=== PATIENT | male | born 1975 | race Caucasian/White ===

== ENCOUNTER 2022-07-01 17:34 | Inpatient (IN) ==
[2022-07-01] MEDS ORDERED: OPTIRAY 320 500ml IV ONE (17:55)
[2022-07-01] MEDS ORDERED: STAT IV STA (17:57)
[2022-07-01] MEDS ORDERED: SODIUM CHLORIDE 0.9% 10ML FLUSH IV STA (17:57)
[2022-07-01] MEDS ORDERED: No Aspirin within 24hrs of THROMBOLYTIC-Stroke PO SCH (18:00)
[2022-07-01] MEDS ORDERED: TENECTEPLASE 22 MG in SYRINGE 0 ML IV ONE (18:08)
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
[2022-07-01] MEDS ORDERED: LABETALOL HCL IV 5 MG/ML 20ML IV ONE (18:10)
[2022-07-01 18:11] LABS: Basophils # (auto) 0.08 K/uL (0-0.2); Basophils % (auto) 0.5 %; Eosinophils # (auto) 0.14 K/uL (0-0.50); Eosinophils % (auto) 0.9 %; Hematocrit (blood only) 49.1 % (42.0-52.0); Hemoglobin 17.2 g/dl (14.0-18.0); Immature Granulocytes # (auto) 0.06 K/uL (0.01-0.20); Immature Granulocytes % (auto) 0.4 %; Lymphocytes # (auto) 1.88 K/uL (1.2-3.4); Lymphocytes % (auto) 11.9 %; Mean Corpuscular Hemoglobin 34.5 pg (25.0-34.0); Mean Corpuscular Volume 98.6 fL (80.0-100.0); Monocytes % (auto) 5.1 %; Neutrophils # (auto) 12.82 K/uL (1.40-6.50); Neutrophils % (auto) 81.2 %; Platelet Count 273 K/uL (130-400); RDW Coefficient of Variation 14.1 % (11.5-14.5); RDW Standard Deviation 51.2 fL (36.4-46.3); Red Blood Count 4.98 M/uL (4.70-6.10); White Blood Count 15.78 K/ul (4.8-10.8)
--- NOTE | 2022-07-01 18:24 | CT Scan Report ---
CT angio neck with con, CT angio head w con, CT head/brain wo con CLINICAL HISTORY: neuro deficit, acute stroke suspected TECHNIQUE: Contiguous axial CT images of the head were acquired from the base of the skull to the corrie jeffery without intravenous contrast administration. CT angiography of the head and neck was performed f ollowing intravenous administration of iodinated contrast. Coronal and sagittal MIPS were obtained fr om the axial data set and were submitted for review. Automated dose lowering techniques and/or adjus tment according to patient size were utilized for this examination. All measurements were calculated based on NASCET criteria. CT DOSE: 1929.07 mGy.cm Comparison: None available at the time of this dictation. FINDINGS: CT head: There is no acute intracranial hemorrhage or evidence of acute territorial infarction. No sh ift of the midline structures, mass effect, or extra-axial abnormalities are shown. Bilateral paranas al sinus disease is seen. Bilateral emphysema is noted. Subcentimeter mediastinal lymph nodes are seen. CTA Neck: A 3 vessel aortic arch is shown. There is interval enlargement of a dissection versus prom inent atherosclerosis in the left subclavian artery origin. This now results in greater than 50% with greater than 70% narrowing of the vessel lumen. This does not appear to extend into the distal subcl tariq artery or vertebral artery. There is mild calcified atherosclerotic plaque at the bifurcation o f the bilateral common carotid arteries without hemodynamically significant flow stenosis. There is n o dissection present. The vertebral arteries are codominant. CTA Head: The anterior and posterior cerebral circulations are patent. No hemodynamically significan t stenosis, aneurysm, dissection, or arteriovenous malformation is shown. IMPRESSION: 1. No acute intracranial hemorrhage, evidence of acute territorial infarction, or other acute intrac ranial disease process. 2. Interval increased prominence of a small dissection versus less likely focal noncalcified plaque at the origin of the left subclavian artery without evidence of hemodynamically significant stenosis. No evidence of extension to the distal subclavian or vertebral arteries. 3. No occlusion, hemodynamically significant stenosis, aneurysm, dissection, or arteriovenous malfor mation in the major intracranial arteries. Assessment of stenosis of the internal carotid arteries is based on NASCET criteria. ACT 112: Negative or not required by law. Electronically signed by: Steve Camejo M.D. 07/01/2022 6:22 PM
[2022-07-01 18:25] LABS: Albumin Globulin Ratio 1.3 (0.9-2); Albumin Level 4.1 gm/dl (3.4-5.0); BUN Creatinine Ratio 13.5 (10-20); Bilirubin,Total 1.2 mg/dl (0.2-1.0); Calcium 9.2 mg/dl (8.5-10.1); Creatinine Clr Calc Pharmacy 73.2 ml/min; Est GFR (African American) 74.3 ml/min; Est GFR (Non-African American) 64.1 ml/min; Globulin 3.1 gm/dl (2.5-4.0); Magnesium 2.1 mg/dl (1.7-2.4); Potassium 3.7 mmol/L (3.5-5.1); Total Protein 7.2 gm/dl (6.0-8.3)
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
[2022-07-01 18:36] LABS: Troponin I High Sensitivity 56.7 pg/ml (0-20)
[2022-07-01 18:49] LABS: INR 1.3 (0.9-1.1); Partial Thromboplastin Time 27.7 Seconds (21.0-31.0); Prothrombin Time 13.7 Seconds (9.0-12.0)
--- NOTE | 2022-07-01 18:51 | XRay Report ---
XR chest 1V portable CLINICAL HISTORY: neuro deficit, acute stroke suspected TECHNIQUE: Single frontal radiograph of the chest was obtained. Comparison: Comparison is made to chest radiograph 04/05/2021 FINDINGS: No lines and tubes are seen. Cardiomegaly is noted. Right lower lung airspace opacity is seen. There is cephalization of the vasculature noted. No evidence of pleural effusion or pneumothorax. IMPRESSION: 1. Right lower lung airspace opacity may represent atelectasis, pneumonia, and/or aspiration. Peribr onchial thickening is seen compatible with airways disease. 2. Cardiomegaly and mild pulmonary hypertension. ACT 112: Negative or not required by law. Electronically signed by: Steve Camejo M.D. 07/01/2022 6:50 PM
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
[2022-07-01] MEDS ORDERED: THIAMINE HCL 500 MG in SODIUM CHLORIDE 0.9% 50 ML IV STA (20:14)
[2022-07-01] MEDS ORDERED: STAT IV Infusion **Titration per Protocol STA (20:14)
[2022-07-01] MEDS ORDERED: LABETALOL HCL IV 5 MG/ML 20ML IV PRN (20:14)
[2022-07-01] MEDS ORDERED: NORMOSOL-R 1,000 ML IV SCH (20:14)
[2022-07-01] MEDS ORDERED: PHARMACIST DISCHARGE MED REC CONSULT PRN (20:14)
[2022-07-01] MEDS ORDERED: cefTRIAXone SODIUM 2,000 MG in DEXTROSE 5% 50 ML IV SCH ×2 (20:30→21:30)
[2022-07-01] MEDS ORDERED: No Aspirin within 24hrs of THROMBOLYTIC-Stroke SCH (20:30)
[2022-07-01] MEDS: FOLIC ACID 1 MG in SYRINGE 9.8 ML IV SCH (21:02)
[2022-07-01] MEDS ORDERED: cefTRIAXone SODIUM 1,000 MG in DEXTROSE 5% AD-VAN 50 ML IV STA (21:11)
[2022-07-01] MEDS ORDERED: ALBUTEROL 0.083% NEBU SOLN 3 ML VIAL NEB PRN (21:33)
--- NOTE | 2022-07-02 00:16 | Magnetic Resonance Report ---
Exam(s): MRI HEAD Without Contrast EXAM: MR Head Without Intravenous Contrast CLINICAL HISTORY: Reason for exam: Suspected CVA post TNKase. TECHNIQUE: Magnetic resonance images of the head/brain without intravenous contrast in multiple planes. COMPARISON: Comparison made to prior noncontrast head CT from the same day. FINDINGS: Brain: Findings concerning for a small acute ischemic injury in the right frontal and parietal lobes with mild cytotoxic edema, without evidence of hemorrhagic transformation. Minimal nonspecific white matter changes. The flow voids at the base of the right are intact. Ventricles: Unremarkable. No ventriculomegaly. Bones/joints: Unremarkable. Sinuses: Unremarkable as visualized. No acute sinusitis. Mastoid air cells: Unremarkable as visualized. No mastoid effusion. Orbits: Unremarkable as visualized. IMPRESSION: Small acute ischemic injuries of the right frontal and parietal lobes with mild cytotoxic edema without evidence of hemorrhagic transformation. Recommend CT angiogram of the head and neck for further evaluation. Electronically signed by: Yelena Pelayo MD 07/02/22 00:15 AM
[2022-07-02] MEDS ORDERED: LORazepam 2 MG/1 ML VIAL IM STA (02:35)
[2022-07-02] MEDS: niCARdipine 25 MG in SODIUM CHLORIDE 0.9% 240 ML IV SCH ×2 (07:13→07:14)
[2022-07-02] MEDS: ICU Protocol for HYPERglycemia SCH ×5 (07:14→20:54)
--- NOTE | 2022-07-02 07:33 | Hospitalist Progress Note ---
Date of Service July 02, 2022 Assessment & Plan (1) Thrombolytic medication administered within last 5 days: (2) Cerebrovascular accident: (3) Dissection of subclavian artery: (4) Tobacco use: (5) Alcohol use: (6) Elevated blood pressure reading: (7) Pneumonia: (8) Elevated troponin: Plan Jason is a 46 M with history of alcohol (6-8 servings vodka daily, last drink 2 PM 07/01) and tobacco use (2 PPD) who take no medications at home who presented for evaluation of left facial droop and left arm/hand weakness that began Sunday afternoon. Patient was found to be experiencing an ischemic CVA and received TNKase and is now being monitor in the intensive care unit. Cerebrovascular Accident (a/w L Arm Weakness and Facial Droop) - Symptom onset: 1530 - S/p TNKase: 1817 (start ASA 24 hours post TNKase) - CT results above - MRI showing ischemic injury of R Frontal and Parietal Lobes - Hx of similar episode in 2020, self resolved, aspirin recommended at this time but not started - 24 hour repeat imaging per protocol - Statin started on admission - Patient actively managed in ICU, post TNKase protocol - BP goals <180/105 - Managed w/ Labetalol - Echo ordered results below - Neurology consulted New Onset, Heart Failure (HFrEF) - Echocardiogram performed 07/02/22 indicating: * Moderate dilation of LV * LV systolic function severely reduced * EF < 15% * Severe global hypokinesis of LV * RV moderately dilated * RV systolic function moderately to severely reduced * Moderate MR and TR * RV systolic pressure elevation to 30-40 mmHg * IVC moderately dilated * Sluggish bubble flow suggesting severely reduced CO - DDx: ischemic heart disease (endorses exertional angina), Viral Myocarditis (recent flu-like illness), hypertensive cardiomyopathy (?), alcohol induced card iomyopathy (active alcohol overuse), amyloidosis (if unexplained FH of cardiomyopathy), not on any provoking drugs, no recent blood transfusion - Consideration for heart cath given patient's history (likely chronic ischemic vs alcoholic cardiomyopathy) - Consulted Cardiology Subclavian Dissection/Stenosis - Neck CTA indicating: * Prominence of a small dissection versus less likely focal noncalcified plaque at the origin of the left subclavian artery without evidence of hemodynamically significant stenosis. - Vascular surgery consulted Pneumonia - RLL pneumonia vs viral URI vs aspiration - Treatment as suspected CAP d/t CXR opacity, elevated WBC, cough, and dyspnea - Empiric Rocephin/Zithromax initiated - Consider pulmonary consultation as outpatient for PFTS for likely COPD - Add HEIDY in house if needed Alcohol use: Patient endorses 6-8 alcoholic beverages (vodka) per day - Last drink / @ 1400 - Thiamine protocol ordered - Folic acid ordered Tobacco use: Currently 2 PPD - Cessation recommended especially in the setting of CVA and family history of cardiac risk - Nicotine patch if needed Hypokalemic periodic paralysis: Potassium 3.7, clinical condition consistent with CVA rather than periodic paralysis BMP daily DVT prophylaxis: Additional chemical ppx contraindicated d/t TNKase, SCDs at this time Dispo: ICU Code Status: Full code Diet: N.p.o. until able to pass dysphagia screen Admission and Anticipated Discharge Date Admission Date: July 01, 2022 Supervising Physician Co-Signing Physician Notes I personally examined the patient and verified all martinez points of history and exam, discussed case, and agree with decision making with Dr Rebollar Somewhat short of breathworse whenever laying flat. Discussed with neurology and ICU. Input greatly appreciated. Vitals noted, in general he is awake and alert mildly dyspneic with conversation, breathing mildly labored bibasilar Rales. Otherwise as above Stroke status post TNK/systolic CHF with EF of 15% acutely decompensated/alcohol abuse/tobacco abusesupportive care, repeat CT, Lasix for the decompensated failure, started to educate on the multimodal need of management. He is well aware and motivated for smoking and alcohol cessation. Cardiology evaluationparticularly as it relates to ischemic risk for his cardiomyopathy, and ongoing management of his severe systolic CHF. Otherwise as above Subjective Jason is a 46 M with history of alcohol (6-8 servings vodka daily, last drink 2 PM 07/01) and tobacco use (2 PPD) who take no medications at home who presented for evaluation of left facial droop and left arm/hand weakness that began Sunday afternoon. Patient was found to be experiencing an ischemic CVA and received TNKase and is now being monitor in the intensive care unit. Patient denies any personal history of MA or heart disease, but notes that his mother had cardiac disease/heart attacks in her 30s as well as DM. 07/02/22: Patient notes this morning that his weakness is much improved. He notes residual weakness in flexion/extension of his left hand digits and occasional speech difficulty.Patient does not ongoing dyspnea, he states that prior to presentation he had 1 week of worsening cough and shortness of breath, he assumed that he had a cold. He notes that 2-3 weeks prior to the onset of his 'cold like symptoms' he developed increasing amounts of dyspnea on exertion, which has continued to progress. 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 He denies any lower extremity edema, claudication, or orthopnea. Jason denies any active fevers, chills, chest pain, abdominal pain, or bowel/bladder concerns. 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: No rashes lesions or erythema CN Exam: II: PERRL III, IV, : EOMI V: normal sensation in V1, V2, and V3 segments bilaterally VII: Slight left-sided facial droop VIII: normal hearing to speech IX, X: normal palatal elevation, no uvular deviation XI: 5/5 head turn and 5/5 shoulder shrug bilaterally XII: Tongue deviates slightly to right of midline Results & Data Results & Data ([facility]) Vital Signs (Past 12 Hours) Vital Signs Temp Pulse Pulse Resp BP BP Pulse Ox 07/02/22 07:15 90 12 97 07/02/22 07:00 93 H 16 90 07/02/22 07:00 141/105 H 07/02/22 06:45 99 H 21 96 07/02/22 06:30 101 H 24 90 07/02/22 06:30 142/109 H 07/02/22 06:15 99 H 31 H 91 07/02/22 06:00 93 H 21 88 L 07/02/22 06:00 137/111 H 07/02/22 05:45 96 H 29 H 89 L 07/02/22 05:30 93 H 23 07/02/22 05:30 126/96 07/02/22 05:15 98 H 32 H 92 07/02/22 05:00 94 H 10 L 92 07/02/22 05:00 139/100 07/02/22 04:45 103 H 26 H 95 07/02/22 04:44 128/91 07/02/22 04:44 95 H 24 95 07/02/22 04:30 102 H 43 H 93 07/02/22 04:30 133/109 H 07/02/22 04:15 94 H 28 H 97 07/02/22 04:00 88 11 L 94 07/02/22 04:00 129/89 07/02/22 03:45 80 0 L 93 07/02/22 03:30 93 H 16 90 07/02/22 03:30 134/100 07/02/22 03:15 92 H 4 L 89 L 07/02/22 03:00 96 H 17 98 07/02/22 03:00 140/104 H 07/02/22 02:45 97 H 18 95 07/02/22 02:30 98 H 31 H 07/02/22 02:30 138/108 H 07/02/22 02:15 91 H 27 H 07/02/22 02:00 86 19 84 L 07/02/22 02:00 124/92 07/02/22 01:45 95 H 17 91 07/02/22 01:30 92 H 25 H 87 L 07/02/22 01:30 135/101 H 07/02/22 01:15 76 11 L 88 L 07/02/22 01:00 86 12 92 07/02/22 01:00 131/96 07/02/22 00:45 95 H 17 91 07/02/22 00:30 92 H 33 H 88 L 07/02/22 00:30 119/85 07/02/22 00:15 92 H 27 H 92 07/02/22 00:12 95 H 23 91 07/02/22 00:12 136/99 07/02/22 00:07 94 H 24 91 07/02/22 00:07 134/107 H 07/02/22 00:03 137/106 H 07/02/22 06:18 36.6 C 93 H 21 141/105 H 96 07/02/22 05:03 36.7 C 93 H 23 126/96 92 07/02/22 05:00 36.7 C 90 15 114/95 92 07/02/22 04:03 88 28 H 129/89 94 07/02/22 03:03 97 H 18 140/104 H 95 07/02/22 02:03 86 19 124/92 92 07/01/22 20:00 07/02/22 01:33 94 H 15 135/101 H 92 07/02/22 01:03 98 H 17 131/96 93 07/02/22 00:00 90 07/02/22 00:33 93 H 21 119/85 94 07/02/22 00:00 36.7 C 91 H 15 136/99 93 07/02/22 00:00 36.7 C 92 H 21 114/95 96 07/01/22 23:03 91 H 22 114/95 95 07/01/22 22:33 95 H 25 H 119/88 97 07/01/22 23:00 92 H 21 96 07/01/22 23:00 114/95 07/01/22 22:45 91 H 28 H 94 07/01/22 22:30 95 H 20 87 L 07/01/22 22:30 119/88 07/01/22 22:15 91 H 29 H 93 07/01/22 22:00 90 14 95 07/01/22 22:00 112/85 07/01/22 21:45 83 10 L 96 07/01/22 21:30 91 H 32 H 94 07/01/22 21:30 114/94 07/01/22 21:15 91 H 7 L 98 07/01/22 21:00 91 H 35 H 96 07/01/22 21:00 116/86 07/01/22 20:58 119/93 07/01/22 20:58 95 H 20 98 07/01/22 20:45 84 14 96 07/01/22 20:30 94 H 14 93 07/01/22 20:30 145/102 H 07/01/22 20:15 93 H 19 96 07/01/22 20:06 148/113 H 07/01/22 20:06 100 H 29 H 95 07/01/22 20:00 99 H 22 90 07/01/22 20:00 144/117 H 07/01/22 19:55 139/114 H 07/01/22 19:55 102 H 41 H 98 07/01/22 19:53 97 H 8 L 07/01/22 22:03 93 H 20 112/85 95 07/01/22 20:00 95 H 07/01/22 21:33 89 31 H 114/94 98 07/01/22 21:03 95 H 23 116/86 98 07/01/22 20:33 115 H 25 H 145/102 H 96 07/01/22 20:03 98 H 30 H 148/113 H 96 07/01/22 19:48 36.7 C 100 H 30 H 144/117 H 97 07/01/22 19:33 99 H 23 134/101 H 96 07/01/22 19:33 O2 Del Method O2 Flow Rate 07/02/22 07:15 07/02/22 07:00 07/02/22 07:00 07/02/22 06:45 07/02/22 06:30 07/02/22 06:30 07/02/22 06:15 07/02/22 06:00 07/02/22 06:00 07/02/22 05:45 07/02/22 05:30 07/02/22 05:30 07/02/22 05:15 07/02/22 05:00 07/02/22 05:00 07/02/22 04:45 07/02/22 04:44 07/02/22 04:44 07/02/22 04:30 07/02/22 04:30 07/02/22 04:15 07/02/22 04:00 07/02/22 04:00 07/02/22 03:45 07/02/22 03:30 07/02/22 03:30 07/02/22 03:15 07/02/22 03:00 07/02/22 03:00 07/02/22 02:45 07/02/22 02:30 07/02/22 02:30 07/02/22 02:15 07/02/22 02:00 07/02/22 02:00 07/02/22 01:45 07/02/22 01:30 07/02/22 01:30 07/02/22 01:15 07/02/22 01:00 07/02/22 01:00 07/02/22 00:45 07/02/22 00:30 07/02/22 00:30 07/02/22 00:15 07/02/22 00:12 07/02/22 00:12 07/02/22 00:07 07/02/22 00:07 07/02/22 00:03 07/02/22 06:18 Nasal Cannula 2 07/02/22 05:03 Room Air 07/02/22 05:00 Room Air 07/02/22 04:03 Room Air 07/02/22 03:03 Room Air 07/02/22 02:03 Room Air 07/01/22 20:00 Room Air, Nasal Cannula 2 07/02/22 01:33 Room Air 07/02/22 01:03 Room Air 07/02/22 00:00 07/02/22 00:33 Nasal Cannula 2 07/02/22 00:00 Room Air 07/02/22 00:00 07/01/22 23:03 Nasal Cannula 2 07/01/22 22:33 Nasal Cannula 2 07/01/22 23:00 07/01/22 23:00 07/01/22 22:45 07/01/22 22:30 07/01/22 22:30 07/01/22 22:15 07/01/22 22:00 07/01/22 22:00 07/01/22 21:45 07/01/22 21:30 07/01/22 21:30 07/01/22 21:15 07/01/22 21:00 07/01/22 21:00 07/01/22 20:58 07/01/22 20:58 07/01/22 20:45 07/01/22 20:30 07/01/22 20:30 07/01/22 20:15 07/01/22 20:06 07/01/22 20:06 07/01/22 20:00 07/01/22 20:00 07/01/22 19:55 07/01/22 19:55 07/01/22 19:53 07/01/22 22:03 Room Air 07/01/22 20:00 07/01/22 21:33 Nasal Cannula 2 07/01/22 21:03 Nasal Cannula 2 07/01/22 20:33 Room Air 07/01/22 20:03 Room Air 07/01/22 19:48 Room Air 07/01/22 19:33 Room Air 07/01/22 19:33 Room Air Diagnostic Findings Chest X-Ray 07/01/22 17:46 IMPRESSION: 1. Right lower lung airspace opacity may represent atelectasis, pneumonia, and/or aspiration. Peribronchial thickening is seen compatible with airways disease. 2. Cardiomegaly and mild pulmonary hypertension. Head CT 07/01/22 17:46 IMPRESSION: 1. No acute intracranial hemorrhage, evidence of acute territorial infarction, or other acute intracranial disease process. 2. Interval increased prominence of a small dissection versus less likely focal noncalcified plaque at the origin of the left subclavian artery without evidence of hemodynamically significant stenosis. No evidence of extension to the distal subclavian or vertebral arteries. 3. No occlusion, hemodynamically significant stenosis, aneurysm, dissection, or arteriovenous malformation in the major intracranial arteries. Head CTA 07/01/22 17:46 IMPRESSION: 1. No acute intracranial hemorrhage, evidence of acute territorial infarction, or other acute intracranial disease process. 2. Interval increased prominence of a small dissection versus less likely focal noncalcified plaque at the origin of the left subclavian artery without evidence of hemodynamically significant stenosis. No evidence of extension to the distal subclavian or vertebral arteries. 3. No occlusion, hemodynamically significant stenosis, aneurysm, dissection, or arteriovenous malformation in the major intracranial arteries. Neck CTA 07/01/22 17:46 IMPRESSION: 1. No acute intracranial hemorrhage, evidence of acute territorial infarction, or other acute intracranial disease process. 2. Interval increased prominence of a small dissection versus less likely focal noncalcified plaque at the origin of the left subclavian artery without evidence of hemodynamically significant stenosis. No evidence of extension to the distal subclavian or vertebral arteries. 3. No occlusion, hemodynamically significant stenosis, aneurysm, dissection, or arteriovenous malformation in the major intracranial arteries. Brain MRI 07/01/22 19:09 IMPRESSION: Small acute ischemic injuries of the right frontal and parietal lobes with mild cytotoxic edema without evidence of hemorrhagic transformation. Recommend CT angiogram of the head and neck for further evaluation. Echocardiogram 07/02/22 Impression: - Moderate dilation of LV - LV systolic function severely reduced - EF < 15% - Severe global hypokinesis of LV - RV moderately dilated - RV systolic function moderately to severely reduced - Moderate MR and TR - RV systolic pressure elevation to 30-40 mmHg - IVC moderately dilated - Sluggish bubble flow suggesting severely reduced CO Resident Activity Tracking Resident Involvement: Resident Care Provided Care Provided: Adult Hospital Medicine (2) Cerebrovascular accident CVA mechanism: unspecified Qualified Code(s): I63.9 - Cerebral infarction, unspecified
[2022-07-02] MEDS: ATORVASTATIN 40 MG TAB PO SCH (08:27)
[2022-07-02] MEDS: FOLIC ACID 1 MG in SYRINGE 9.8 ML IV SCH (08:27)
[2022-07-02] MEDS ORDERED: THIAMINE HCL 100 MG in SYRINGE 9 ML IV SCH (09:00)
[2022-07-02] MEDS ORDERED: cefTRIAXone SODIUM 1,000 MG in DEXTROSE 5% AD-VAN 50 ML IV SCH (09:00)
[2022-07-02] MEDS ORDERED: cefTRIAXone SODIUM 2,000 MG in DEXTROSE 5% 50 ML IV SCH (09:00)
--- NOTE | 2022-07-02 10:01 | Critical Care Progress Note ---
Date of Service July 02, 2022 Assessment & Plan (1) Thrombolytic medication administered within last 5 days: (2) Cerebrovascular accident: (3) Dissection of subclavian artery: (4) Tobacco use: (5) Alcohol use: (6) Elevated blood pressure reading: (7) Pneumonia: (8) Elevated troponin: Plan ICU CONSULT NOTE FORMAT: Reason Critically Ill: 46 YOM arrived to [facility] with reports of LUE weakness, numbness and tingling, left facial droop. Deemed TNKase candidate - received TNKase 18:16. Neurological exams, hemodynamic monitoring and BP control following TNKase administration. Neuro - Stroke like symptoms/Ischemic Stroke, S/p TNKAse administration: Significant improvement CAM ICU: Negative - BP goals <180/105 - Labetalol - Statin initiated - Neurology consultation appreciated - ECHO with bubble study in AM - MRI pending - Stop Bang- 4- patient reports he had previously been screened for CHAD- recommend re-screening - Telemetry overnight eval for arrhythmias- consider extended monitoring if warranted upon discharge - TAPE DUPLICATOR evaluation - ASA 24 hours post TNKase administration tobacco abuse - Nicotene patch if needed ETOH misuse - CIWAA protocol as warranted- last drink was 06/30/22- Thiamine and Folate: Converted to oral administration Cardiac - Subclavian dissection/stenosis, HTN, Cardiomyopathy - Possible subclavian steal- maybe associated with above symptoms however imaging does note that it does not extend into vertebrals or further distally into subclavian- appreciate vascular surgery evaluation/consultation - left arm is warm with good pulses 2+ blood pressure in both arms is also equal - BP control as above- patient endorses that he is always high when he does get it checked Respiratory - Pneumonia, - Patient with right lower lobe opacity, elevated WBC count with NLR 6:1, endorsed fevers and cough- will initiate abx therapy for CAP- Rocephin - Consider pulmonary consultation as outpatient for PFTS for likely COPD - add HEIDY in house if needed - Transition to AZithromax by mouth. - EKG QTc 466, magnesium approrpiate GI - NO acute needs - tolerating diet RENAL/LYTES - No acute needs - ICU electrolyte protocol - NO acute needs ENDO - no acute needs - HGB A1c with next lab draw- follow BG goal <180 HEME - No acute needs ID - Pneumonia LINES/IV ACCESS - PIV Continue use of these lines DVT PROPHYLAXIS - SCDS- chemoprophylaxis contraindicated following TNKase administration DISPO ICU for 24 hours post TNKase administration D/W hospitalist medicine, stable for downgrade at 24 hour s/p TNKase Admission and Anticipated Discharge Date Admission Date: July 01, 2022 Subjective Feels much better than yesterday. He has significant improvement with movement in his left arm, left face feels somewhat numb still, reports his speech is a little off but overall feels significantly improved. Review of Systems Review of Systems: No chest pain no headache Physical Exam Physical Exam: General: Alert. nontoxic. Neuro: Mild left facial droop mild dysarthria Skin: Warm, dry, Head: Atraumatic Ears, nose, mouth and throat: airway patent Cardiovascular: Normal peripheral perfusion Respiratory: no respiratory distress Gastrointestinal: Non distended Musculoskeletal: No deformity, 5 out of 5 strength in bilateral upper extremities noticeable difference in fine motor quality of movements in left hand Results & Data Results & Data ([facility]) Vital Signs (Past 12 Hours) Vital Signs Temp Pulse Pulse Resp BP BP Pulse Ox 07/02/22 09:18 36.7 C 102 H 20 145/110 H 95 07/02/22 08:18 36.6 C 103 H 21 143/102 H 96 07/02/22 07:18 36.7 C 97 H 20 138/111 H 92 07/02/22 07:15 90 12 97 07/02/22 07:00 93 H 16 90 07/02/22 07:00 141/105 H 07/02/22 06:45 99 H 21 96 07/02/22 06:30 101 H 24 90 07/02/22 06:30 142/109 H 07/02/22 06:15 99 H 31 H 91 07/02/22 06:00 93 H 21 88 L 07/02/22 06:00 137/111 H 07/02/22 05:45 96 H 29 H 89 L 07/02/22 05:30 93 H 23 07/02/22 05:30 126/96 07/02/22 05:15 98 H 32 H 92 07/02/22 05:00 94 H 10 L 92 07/02/22 05:00 139/100 07/02/22 04:45 103 H 26 H 95 07/02/22 04:44 128/91 07/02/22 04:44 95 H 24 95 07/02/22 04:30 102 H 43 H 93 07/02/22 04:30 133/109 H 07/02/22 04:15 94 H 28 H 97 07/02/22 04:00 88 11 L 94 07/02/22 04:00 129/89 07/02/22 03:45 80 0 L 93 07/02/22 03:30 93 H 16 90 07/02/22 03:30 134/100 07/02/22 03:15 92 H 4 L 89 L 07/02/22 03:00 96 H 17 98 07/02/22 03:00 140/104 H 07/02/22 02:45 97 H 18 95 07/02/22 02:30 98 H 31 H 07/02/22 02:30 138/108 H 07/02/22 02:15 91 H 27 H 07/02/22 02:00 86 19 84 L 07/02/22 02:00 124/92 07/02/22 01:45 95 H 17 91 07/02/22 01:30 92 H 25 H 87 L 07/02/22 01:30 135/101 H 07/02/22 01:15 76 11 L 88 L 07/02/22 01:00 86 12 92 07/02/22 01:00 131/96 07/02/22 00:45 95 H 17 91 07/02/22 00:30 92 H 33 H 88 L 07/02/22 00:30 119/85 07/02/22 00:15 92 H 27 H 92 07/02/22 00:12 95 H 23 91 07/02/22 00:12 136/99 07/02/22 00:07 94 H 24 91 07/02/22 00:07 134/107 H 07/02/22 00:03 137/106 H 07/02/22 06:18 36.6 C 93 H 21 141/105 H 96 07/02/22 05:03 36.7 C 93 H 23 126/96 92 07/02/22 05:00 36.7 C 90 15 114/95 92 07/02/22 04:03 88 28 H 129/89 94 07/02/22 03:03 97 H 18 140/104 H 95 07/02/22 02:03 86 19 124/92 92 07/02/22 01:33 94 H 15 135/101 H 92 07/02/22 01:03 98 H 17 131/96 93 07/02/22 00:00 90 07/02/22 00:33 93 H 21 119/85 94 07/02/22 00:00 36.7 C 91 H 15 136/99 93 07/02/22 00:00 36.7 C 92 H 21 114/95 96 07/01/22 23:03 91 H 22 114/95 95 07/01/22 22:33 95 H 25 H 119/88 97 07/01/22 23:00 92 H 21 96 07/01/22 23:00 114/95 07/01/22 22:45 91 H 28 H 94 07/01/22 22:30 95 H 20 87 L 07/01/22 22:30 119/88 07/01/22 22:15 91 H 29 H 93 07/01/22 22:03 93 H 20 112/85 95 O2 Del Method O2 Flow Rate 07/02/22 09:18 Nasal Cannula 2 07/02/22 08:18 Nasal Cannula 2 07/02/22 07:18 Nasal Cannula 2 07/02/22 07:15 07/02/22 07:00 07/02/22 07:00 07/02/22 06:45 07/02/22 06:30 07/02/22 06:30 07/02/22 06:15 07/02/22 06:00 07/02/22 06:00 07/02/22 05:45 07/02/22 05:30 07/02/22 05:30 07/02/22 05:15 07/02/22 05:00 07/02/22 05:00 07/02/22 04:45 07/02/22 04:44 07/02/22 04:44 07/02/22 04:30 07/02/22 04:30 07/02/22 04:15 07/02/22 04:00 07/02/22 04:00 07/02/22 03:45 07/02/22 03:30 07/02/22 03:30 07/02/22 03:15 07/02/22 03:00 07/02/22 03:00 07/02/22 02:45 07/02/22 02:30 07/02/22 02:30 07/02/22 02:15 07/02/22 02:00 07/02/22 02:00 07/02/22 01:45 07/02/22 01:30 07/02/22 01:30 07/02/22 01:15 07/02/22 01:00 07/02/22 01:00 07/02/22 00:45 07/02/22 00:30 07/02/22 00:30 07/02/22 00:15 07/02/22 00:12 07/02/22 00:12 07/02/22 00:07 07/02/22 00:07 07/02/22 00:03 07/02/22 06:18 Nasal Cannula 2 07/02/22 05:03 Room Air 07/02/22 05:00 Room Air 07/02/22 04:03 Room Air 07/02/22 03:03 Room Air 07/02/22 02:03 Room Air 07/02/22 01:33 Room Air 07/02/22 01:03 Room Air 07/02/22 00:00 07/02/22 00:33 Nasal Cannula 2 07/02/22 00:00 Room Air 07/02/22 00:00 07/01/22 23:03 Nasal Cannula 2 07/01/22 22:33 Nasal Cannula 2 07/01/22 23:00 07/01/22 23:00 07/01/22 22:45 07/01/22 22:30 07/01/22 22:30 07/01/22 22:15 07/01/22 22:03 Room Air Critical Care Results & Data Vital Signs (Past 12 Hours) Vital Signs Temp Pulse Pulse Resp BP BP Pulse Ox 07/02/22 10:18 36.6 C 93 H 18 141/102 H 93 07/02/22 09:18 36.7 C 102 H 20 145/110 H 95 07/02/22 08:18 36.6 C 103 H 21 143/102 H 96 07/02/22 07:18 36.7 C 97 H 20 138/111 H 92 07/02/22 07:15 90 12 97 07/02/22 07:00 93 H 16 90 07/02/22 07:00 141/105 H 07/02/22 06:45 99 H 21 96 07/02/22 06:30 101 H 24 90 07/02/22 06:30 142/109 H 07/02/22 06:15 99 H 31 H 91 07/02/22 06:00 93 H 21 88 L 07/02/22 06:00 137/111 H 07/02/22 05:45 96 H 29 H 89 L 07/02/22 05:30 93 H 23 07/02/22 05:30 126/96 07/02/22 05:15 98 H 32 H 92 07/02/22 05:00 94 H 10 L 92 07/02/22 05:00 139/100 07/02/22 04:45 103 H 26 H 95 07/02/22 04:44 128/91 07/02/22 04:44 95 H 24 95 07/02/22 04:30 102 H 43 H 93 07/02/22 04:30 133/109 H 07/02/22 04:15 94 H 28 H 97 07/02/22 04:00 88 11 L 94 07/02/22 04:00 129/89 07/02/22 03:45 80 0 L 93 07/02/22 03:30 93 H 16 90 07/02/22 03:30 134/100 07/02/22 03:15 92 H 4 L 89 L 07/02/22 03:00 96 H 17 98 07/02/22 03:00 140/104 H 07/02/22 02:45 97 H 18 95 07/02/22 02:30 98 H 31 H 07/02/22 02:30 138/108 H 07/02/22 02:15 91 H 27 H 07/02/22 02:00 86 19 84 L 07/02/22 02:00 124/92 07/02/22 01:45 95 H 17 91 07/02/22 01:30 92 H 25 H 87 L 07/02/22 01:30 135/101 H 07/02/22 01:15 76 11 L 88 L 07/02/22 01:00 86 12 92 07/02/22 01:00 131/96 07/02/22 00:45 95 H 17 91 07/02/22 00:30 92 H 33 H 88 L 07/02/22 00:30 119/85 07/02/22 00:15 92 H 27 H 92 07/02/22 00:12 95 H 23 91 07/02/22 00:12 136/99 07/02/22 00:07 94 H 24 91 07/02/22 00:07 134/107 H 07/02/22 00:03 137/106 H 07/02/22 06:18 36.6 C 93 H 21 141/105 H 96 07/02/22 05:03 36.7 C 93 H 23 126/96 92 07/02/22 05:00 36.7 C 90 15 114/95 92 07/02/22 04:03 88 28 H 129/89 94 07/02/22 03:03 97 H 18 140/104 H 95 07/02/22 02:03 86 19 124/92 92 07/02/22 01:33 94 H 15 135/101 H 92 07/02/22 01:03 98 H 17 131/96 93 07/02/22 00:00 90 07/02/22 00:33 93 H 21 119/85 94 07/02/22 00:00 36.7 C 91 H 15 136/99 93 07/02/22 00:00 36.7 C 92 H 21 114/95 96 O2 Del Method O2 Flow Rate 07/02/22 10:18 Room Air 07/02/22 09:18 Nasal Cannula 2 07/02/22 08:18 Nasal Cannula 2 07/02/22 07:18 Nasal Cannula 2 07/02/22 07:15 07/02/22 07:00 07/02/22 07:00 07/02/22 06:45 07/02/22 06:30 07/02/22 06:30 07/02/22 06:15 07/02/22 06:00 07/02/22 06:00 07/02/22 05:45 07/02/22 05:30 07/02/22 05:30 07/02/22 05:15 07/02/22 05:00 07/02/22 05:00 07/02/22 04:45 07/02/22 04:44 07/02/22 04:44 07/02/22 04:30 07/02/22 04:30 07/02/22 04:15 07/02/22 04:00 07/02/22 04:00 07/02/22 03:45 07/02/22 03:30 07/02/22 03:30 07/02/22 03:15 07/02/22 03:00 07/02/22 03:00 07/02/22 02:45 07/02/22 02:30 07/02/22 02:30 07/02/22 02:15 07/02/22 02:00 07/02/22 02:00 07/02/22 01:45 07/02/22 01:30 07/02/22 01:30 07/02/22 01:15 07/02/22 01:00 07/02/22 01:00 07/02/22 00:45 07/02/22 00:30 07/02/22 00:30 07/02/22 00:15 07/02/22 00:12 07/02/22 00:12 07/02/22 00:07 07/02/22 00:07 07/02/22 00:03 07/02/22 06:18 Nasal Cannula 2 07/02/22 05:03 Room Air 07/02/22 05:00 Room Air 07/02/22 04:03 Room Air 07/02/22 03:03 Room Air 07/02/22 02:03 Room Air 07/02/22 01:33 Room Air 07/02/22 01:03 Room Air 07/02/22 00:00 07/02/22 00:33 Nasal Cannula 2 07/02/22 00:00 Room Air 07/02/22 00:00 Lab & Micro Results (Past 24 Hours) RBC 4.98 M/uL (4.70-6.10) 07/01/22 WBC 15.78 K/ul (4.8-10.8) H 07/01/22 Hgb 17.2 g/dl (14.0-18.0) 07/01/22 Hct 49.1 % (42.0-52.0) 07/01/22 MCV 98.6 fL (80.0-100.0) 07/01/22 MCH 34.5 pg (25.0-34.0) H 07/01/22 MCHC 35.0 g/dL (32.0-36.0) 07/01/22 RDW Standard Deviation 51.2 fL (36.4-46.3) H 07/01/22 RDW Coefficient of Variation 14.1 % (11.5-14.5) 07/01/22 Plt Count 273 K/uL (130-400) 07/01/22 MPV 11.0 fL (9.4-12.4) 07/01/22 Neutrophils (%) (Auto) 81.2 % 07/01/22 Lymphocytes (%) (Auto) 11.9 % 07/01/22 Monocytes # (Auto) 0.80 K/uL (0.11-0.59) H 07/01/22 Eosinophils # (Auto) 0.14 K/uL (0-0.50) 07/01/22 Immature Granulocyte % (Auto) 0.4 % 07/01/22 Neutrophils # (Auto) 12.82 K/uL (1.40-6.50) H 07/01/22 Lymphocytes # (Auto) 1.88 K/uL (1.2-3.4) 07/01/22 Monocytes # (Auto) 0.80 K/uL (0.11-0.59) H 07/01/22 Eosinophils # (Auto) 0.14 K/uL (0-0.50) 07/01/22 Basophils # (Auto) 0.08 K/uL (0-0.2) 07/01/22 Immature Granulocyte # (Auto) 0.06 K/uL (0.01-0.20) 3 Na 138 mmol/L (136-145) 07/01/22 K 3.7 mmol/L (3.5-5.1) 07/01/22 Cl 102 mmol/L (98-107) 07/01/22 CO2 29 mmol/L (21-32) 07/01/22 Anion Gap 7 (3-11) 07/01/22 BUN 18 mg/dl (6-23) 07/01/22 Creatinine 1.33 mg/dl (0.6-1.4) 07/01/22 Estimated GFR ( Amer) 74.3 ml/min 07/01/22 Estimated GFR (Non-Af Amer) 64.1 ml/min 07/01/22 BUN/Creatinine Ratio 13.5 (10-20) 07/01/22 Glu 112 mg/dl (70-99(Fasting)) H 07/01/22 Ca 9.2 mg/dl (8.5-10.1) 07/01/22 Total Bilirubin 1.2 mg/dl (0.2-1.0) H 07/01/22 AST 39 U/L (13-39) 07/01/22 ALT 43 U/L (7-52) 07/01/22 Alkaline Phosphatase 66 U/L (34-104) 07/01/22 TP 7.2 gm/dl (6.0-8.3) 07/01/22 Albumin 4.1 gm/dl (3.4-5.0) 07/01/22 Globulin 3.1 gm/dl (2.5-4.0) 07/01/22 Albumin/Globulin Ratio 1.3 (0.9-2) 07/01/22 Mg 2.1 mg/dl (1.7-2.4) 07/01/22 17:50 Calcium Level 9.2 mg/dl (8.5-10.1) 07/01/22 17:50 Prothromb Time International Ratio 1.3 (0.9-1.1) H 07/01/22 17 :50 Diagnostic Findings (Past 24 Hours) Chest X-Ray 07/01/22 17:46 XR chest 1V portable CLINICAL HISTORY: neuro deficit, acute stroke suspected TECHNIQUE: Single frontal radiograph of the chest was obtained. Comparison: Comparison is made to chest radiograph 04/05/2021 FINDINGS: No lines and tubes are seen. Cardiomegaly is noted. Right lower lung airspace opacity is seen. There is cephalization of the vasculature noted. No evidence of pleural effusion or pneumothorax. IMPRESSION: 1. Right lower lung airspace opacity may represent atelectasis, pneumonia, and/or aspiration. Peribronchial thickening is seen compatible with airways disease. 2. Cardiomegaly and mild pulmonary hypertension. ACT 112: Negative or not required by law. Electronically signed by: Steve Camejo M.D. 07/01/2022 6:[address] 07/01/22 17:46 CT angio neck with con, CT angio head w con, CT head/brain wo con CLINICAL HISTORY: neuro deficit, acute stroke suspected TECHNIQUE: Contiguous axial CT images of the head were acquired from the base of the skull to the vertex without intravenous contrast administration. CT angiography of the head and neck was performed following intravenous administration of iodinated contrast. Coronal and sagittal MIPS were obtained from the axial data set and were submitted for review. Automated dose lowering techniques and/or adjustment according to patient size were utilized for this examination. All measurements were calculated based on NASCET criteria. CT DOSE: 1929.07 mGy.cm Comparison: None available at the time of this dictation. FINDINGS: CT head: There is no acute intracranial hemorrhage or evidence of acute territorial infarction. No shift of the midline structures, mass effect, or extr a-axial abnormalities are shown. Bilateral paranasal sinus disease is seen. Bilateral emphysema is noted. Subcentimeter mediastinal lymph nodes are seen. CTA Neck: A 3 vessel aortic arch is shown. There is interval enlargement of a dissection versus prominent atherosclerosis in the left subclavian artery origin. This now results in greater than 50% with greater than 70% narrowing of the vessel lumen. This does not appear to extend into the distal subclavian artery or vertebral artery. There is mild calcified atherosclerotic plaque at the bifurcation of the bilateral common carotid arteries without hemodynamically significant flow stenosis. There is no dissection present. The vertebral arteries are codominant. CTA Head: The anterior and posterior cerebral circulations are patent. No hemodynamically significant stenosis, aneurysm, dissection, or arteriovenous malformation is shown. IMPRESSION: 1. No acute intracranial hemorrhage, evidence of acute territorial infarction, or other acute intracranial disease process. 2. Interval increased prominence of a small dissection versus less likely focal noncalcified plaque at the origin of the left subclavian artery without evidence of hemodynamically significant stenosis. No evidence of extension to the distal subclavian or vertebral arteries. 3. No occlusion, hemodynamically significant stenosis, aneurysm, dissection, or arteriovenous malformation in the major intracranial arteries. Assessment of stenosis of the internal carotid arteries is based on NASCET criteria. ACT 112: Negative or not required by law. Electronically signed by: Steve Camejo M.D. 07/01/2022 6:22 PM Head CTA 07/01/22 17:46 CT angio neck with con, CT angio head w con, CT head/brain wo con CLINICAL HISTORY: neuro deficit, acute stroke suspected TECHNIQUE: Contiguous axial CT images of the head were acquired from the base of the skull to the vertex without intravenous contrast administration. CT angiography of the head and neck was performed following intravenous administration of iodinated contrast. Coronal and sagittal MIPS were obtained from the axial data set and were submitted for review. Automated dose lowering techniques and/or adjustment according to patient size were utilized for this examination. All measurements were calculated based on NASCET criteria. CT DOSE: 1929.07 mGy.cm Comparison: None available at the time of this dictation. FINDINGS: CT head: There is no acute intracranial hemorrhage or evidence of acute territorial infarction. No shift of the midline structures, mass effect, or extra-axial abnormalities are shown. Bilateral paranasal sinus disease is seen. Bilateral emphysema is noted. Subcentimeter mediastinal lymph nodes are seen. CTA Neck: A 3 vessel aortic arch is shown. There is interval enlargement of a dissection versus prominent atherosclerosis in the left subclavian artery origin. This now results in greater than 50% with greater than 70% narrowing of the vessel lumen. This does not appear to extend into the distal subclavian artery or vertebral artery. There is mild calcified atherosclerotic plaque at the bifurcation of the bilateral common carotid arteries without hemodynamically significant flow stenosis. There is no dissection present. The vertebral arteri es are codominant. CTA Head: The anterior and posterior cerebral circulations are patent. No hemodynamically significant stenosis, aneurysm, dissection, or arteriovenous ma lformation is shown. IMPRESSION: 1. No acute intracranial hemorrhage, evidence of acute territorial infarction, or other acute intracranial disease process. 2. Interval increased prominence of a small dissection versus less likely focal noncalcified plaque at the origin of the left subclavian artery without evidence of hemodynamically significant stenosis. No evidence of extension to the distal subclavian or vertebral arteries. 3. No occlusion, hemodynamically significant stenosis, aneurysm, dissection, or arteriovenous malformation in the major intracranial arteries. Assessment of stenosis of the internal carotid arteries is based on NASCET criteria. ACT 112: Negative or not required by law. Electronically signed by: Steve Camejo M.D. 07/01/2022 6:22 PM Neck CTA 07/01/22 17:46 CT angio neck with con, CT angio head w con, CT head/brain wo con CLINICAL HISTORY: neuro deficit, acute stroke suspected TECHNIQUE: Contiguous axial CT images of the head were acquired from the base of the skull to the vertex without intravenous contrast administration. CT angiography of the head and neck was performed following intravenous administration of iodinated contrast. Coronal and sagittal MIPS were obtained from the axial data set and were submitted for review. Automated dose lowering techniques and/or adjustment according to patient size were utilized for this examination. All measurements were calculated based on NASCET criteria. CT DOSE: 1929.07 mGy.cm Comparison: None available at the time of this dictation. FINDINGS: CT head: There is no acute intracranial hemorrhage or evidence of acute territorial infarction. No shift of the midline structures, mass effect, or extra-axial abnormalities are shown. Bilateral paranasal sinus disease is seen. Bilateral emphysema is noted. Subcentimeter mediastinal lymph nodes are seen. CTA Neck: A 3 vessel aortic arch is shown. There is interval enlargement of a dissection versus prominent atherosclerosis in the left subclavian artery origin. This now results in greater than 50% with greater than 70% narrowing of the vessel lumen. This does not appear to extend into the distal subclavian artery or vertebral artery. There is mild calcified atherosclerotic plaque at the bifurcation of the bilateral common carotid arteries without hemodynamically significant flow stenosis. There is no dissection present. The vertebral arteries are codominant. CTA Head: The anterior and posterior cerebral circulations are patent. No hemodynamically significant stenosis, aneurysm, dissection, or arteriovenous malformation is shown. IMPRESSION: 1. No acute intracranial hemorrhage, evidence of acute territorial infarction, or other acute intracranial disease process. 2. Interval increased prominence of a small dissection versus less likely focal noncalcified plaque at the origin of the left subclavian artery without evidence of hemodynamically significant stenosis. No evidence of extension to the distal subclavian or vertebral arteries. 3. No occlusion, hemodynamically significant stenosis, aneurysm, dissection, or arteriovenous malformation in the major intracranial arteries. Assessment of stenosis of the internal carotid arteries is based on NASCET criteria. ACT 112: Negative or not required by law. Electronically signed by: Steve Camejo M.D. 07/01/2022 6:22 PM Brain MRI 07/01/22 19:09 Exam(s): MRI HEAD Without Contrast EXAM: MR Head Without Intravenous Contrast CLINICAL HISTORY: Reason for exam: Suspected CVA post TNKase. TECHNIQUE: Magnetic resonance images of the head/brain without intravenous contrast in multiple planes. COMPARISON: Comparison made to prior noncontrast head CT from the same day. FINDINGS: Brain: Findings concerning for a small acute ischemic injury in the right frontal and parietal lobes with mild cytotoxic edema, without evidence of hemorrhagic transformation. Minimal nonspecific white matter changes. The flow voids at the base of the right are intact. Ventricles: Unremarkable. No ventriculomegaly. Bones/joints: Unremarkable. Sinuses: Unremarkable as visualized. No acute sinusitis. Mastoid air cells: Unremarkable as visualized. No mastoid effusion. Orbits: Unremarkable as visualized. IMPRESSION: Small acute ischemic injuries of the right frontal and parietal lobes with mild cytotoxic edema without evidence of hemorrhagic transformation. Recommend CT angiogram of the head and neck for further evaluation. Electronically signed by: Yelena Pelayo MD 07/02/22 00:15 AM I & O Totals 24 Hours 07/01/22 07/02/22 07/03/22 06:59 06:59 06:59 Intake Total 1125 / 1125 70 / 70 Output Total 625 / 625 Balance 500 / 500 70 / 70 Cumulative 07/01/22 17:34 thru 07/02/22 09:01 Intake Total 1195 Output Total 625 Balance 570 RT Ventilator Mngmt (Last Documented) Ventilator Ordered Settings Respiratory Rate 18 07/02/22 10:18 Ventilator - PT Measurements Respiratory Rate 18 Coding Level of Care Code 05379 SUB INP/OBS CARE 3/50MIN Diagnoses Thrombolytic medication administered within last 5 days Z78.9 Cerebrovascular accident I63.9 CVA mechanism: unspecified Dissection of subclavian artery I77.79 Tobacco use Z72.0 Alcohol use Z78.9 Elevated blood pressure reading R03.0 Pneumonia J18.9 Elevated troponin R77.8 (2) Cerebrovascular accident CVA mechanism: unspecified Qualified Code(s): I63.9 - Cerebral infarction, unspecified
--- NOTE | 2022-07-02 10:27 | XCELERA ---
[id number] \\[id number]
[2022-07-02] MEDS ORDERED: AZITHROMYCIN 250 MG TAB PO ONE (12:00)
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
--- NOTE | 2022-07-02 14:36 | Electrocardiogram Report ---
Test Reason : Blood Pressure : / mmHG Vent. Rate : 120 BPM Atrial Rate : 120 BPM P-R Int : 150 ms QRS Dur : 110 ms QT Int : 330 ms P-R-T Axes : 069 196 022 degrees QTc Int : 466 ms Sinus tachycardia Left atrial enlargement Right superior axis deviation Possible Old Inferior infarct (cited on or before 05-APR-2021) Possible Old Anterior infarct (cited on or before 05-APR-2021) Nonspecific T wave abnormality Lateral leads Abnormal ECG When compared with ECG of 05-APR-2021 12:31, No significant change Confirmed by Trent Soares ([id number]) on 07/02/2022 2:36:00 PM Referred By: REFERRED SELF Confirmed By:Trent Soares
[2022-07-02 17:15] LABS: Basophils # (auto) 0.11 K/uL (0-0.2); Basophils % (auto) 1.1 %; Eosinophils # (auto) 0.07 K/uL (0-0.50); Eosinophils % (auto) 0.7 %; Hematocrit (blood only) 47.3 % (42.0-52.0); Hemoglobin 16.5 g/dl (14.0-18.0); Immature Granulocytes # (auto) 0.03 K/uL (0.01-0.20); Immature Granulocytes % (auto) 0.3 %; Lymphocytes # (auto) 2.44 K/uL (1.2-3.4); Lymphocytes % (auto) 23.6 %; Mean Corpuscular Hemoglobin 34.1 pg (25.0-34.0); Mean Corpuscular Hgb Conc 34.9 g/dL (32.0-36.0); Mean Corpuscular Volume 97.7 fL (80.0-100.0); Mean Platelet Volume 11.6 fL (9.4-12.4); Monocytes # (auto) 0.72 K/uL (0.11-0.59); Neutrophils # (auto) 6.98 K/uL (1.40-6.50); Neutrophils % (auto) 67.3 %; Platelet Count 236 K/uL (130-400); RDW Coefficient of Variation 14.1 % (11.5-14.5); RDW Standard Deviation 51.2 fL (36.4-46.3); Red Blood Count 4.84 M/uL (4.70-6.10); White Blood Count 10.35 K/ul (4.8-10.8)
[2022-07-02 17:29] LABS: BUN Creatinine Ratio 11.7 (10-20); Calcium 9.4 mg/dl (8.5-10.1); Chol HDL Ratio 8.3 (0-5); Creatinine Clr Calc Pharmacy 60.9 ml/min; Est GFR (African American) 58.5 ml/min; Est GFR (Non-African American) 50.5 ml/min; Potassium 4.3 mmol/L (3.5-5.1)
--- NOTE | 2022-07-02 18:39 | CT Scan Report ---
CT head/brain wo con CLINICAL HISTORY: 46 years-old Male with repeat post CVA/TNKase. Acute strokelike symptoms TECHNIQUE: Multiple axial CT images of the head were obtained without contrast. A dose lowering tech nique was utilized adhering to the principles of ALARA. CT DOSE: 614.27 mGy.cm COMPARISON: Brain MRI 07/01/2022 FINDINGS: No acute intracranial hemorrhage, midline shift, intracranial mass, hydrocephalus, or abnormal extra- axial collection. Ill-defined right frontal parietal small infarcts redemonstrated with mild cytotoxi c edema. The calvarium is intact. Mild polypoid mucosal thickening of the right maxillary sinus. Mastoid air cells are clear. IMPRESSION: 1. No acute intracranial hemorrhage or midline shift. 2. Small ill-defined right frontal parietal infarcts redemonstrated, better characterized on the [facility] brain MRI. ACT 112: Negative or not required by law. The above report was generated using voice recognition software. It may contain grammatical, syntax o r spelling errors. Electronically signed by: Myron Estrada M.D. 07/02/2022 6:36 PM
[2022-07-02] MEDS ORDERED: FUROSEMIDE INJ 20 MG/2 ML VIAL IV ONE (18:59)
--- NOTE | 2022-07-02 19:30 | Billing Data ---
Date of Service July 02, 2022 Coding Level of Care Code 56113 SUB INP/OBS CARE
[2022-07-02] MEDS: ASPIRIN 81 MG ECTAB PO SCH (20:35)
[2022-07-03 05:08] LABS: Hematocrit (blood only) 45.1 % (42.0-52.0); Hemoglobin 15.9 g/dl (14.0-18.0); Mean Corpuscular Hemoglobin 34.1 pg (25.0-34.0); Mean Corpuscular Hgb Conc 35.3 g/dL (32.0-36.0); Mean Corpuscular Volume 96.8 fL (80.0-100.0); Mean Platelet Volume 11.5 fL (9.4-12.4); Platelet Count 215 K/uL (130-400); RDW Coefficient of Variation 14.1 % (11.5-14.5); RDW Standard Deviation 50.6 fL (36.4-46.3); Red Blood Count 4.66 M/uL (4.70-6.10); White Blood Count 10.51 K/ul (4.8-10.8)
[2022-07-03 05:14] LABS: Albumin Globulin Ratio 1.4 (0.9-2); Albumin Level 3.9 gm/dl (3.4-5.0); BUN Creatinine Ratio 14.2 (10-20); Bilirubin,Total 1.4 mg/dl (0.2-1.0); Calcium 8.9 mg/dl (8.5-10.1); Creatinine Clr Calc Pharmacy 77.7 ml/min; Est GFR (African American) 78.6 ml/min; Est GFR (Non-African American) 67.8 ml/min; Globulin 2.7 gm/dl (2.5-4.0); Potassium 4.2 mmol/L (3.5-5.1); Total Protein 6.6 gm/dl (6.0-8.3)
--- NOTE | 2022-07-03 06:54 | Hospitalist Progress Note ---
Date of Service July 03, 2022 Assessment & Plan (1) Thrombolytic medication administered within last 5 days: (2) Cerebrovascular accident: (3) Dissection of subclavian artery: (4) Tobacco use: (5) Alcohol use: (6) Elevated blood pressure reading: (7) Pneumonia: (8) Elevated troponin: Plan Jason is a 46 M with history of alcohol (6-8 servings vodka daily, last drink 2 PM 07/01) and tobacco use (2 PPD) who take no medications at home who presented for evaluation of left facial droop and left arm/hand weakness that began Sunday afternoon. Patient was found to be experiencing an ischemic CVA and received TNKase and is now being monitor in the intensive care unit. Cerebrovascular Accident (a/w L Arm Weakness and Facial Droop) - Symptom onset: 1530 - S/p TNKase: 1817 (start ASA 24 hours post TNKase) - CT results above - MRI showing ischemic injury of R Frontal and Parietal Lobes - Hx of similar episode in 2020, self resolved, aspirin recommended at this time but not started - 24 hour repeat imaging per protocol - Statin started on admission - Patient actively managed in ICU, post TNKase protocol - BP goals <180/105 - Managed w/ Labetalol - Echo ordered results below - Neurology consulted New Onset, Heart Failure (HFrEF) - Echocardiogram performed 07/02/22 indicating: * Moderate dilation of LV * LV systolic function severely reduced * EF < 15% * Severe global hypokinesis of LV * RV moderately dilated * RV systolic function moderately to severely reduced * Moderate MR and TR * RV systolic pressure elevation to 30-40 mmHg * IVC moderately dilated * Sluggish bubble flow suggesting severely reduced CO - DDx: ischemic heart disease (endorses exertional angina), Viral Myocarditis (recent flu-like illness), hypertensive cardiomyopathy (?), alcohol induced card iomyopathy (active alcohol overuse), amyloidosis (if unexplained FH of cardiomyopathy), not on any provoking drugs, no recent blood transfusion - Consideration for heart cath given patient's history (likely chronic ischemic vs alcoholic cardiomyopathy) - Consulted Cardiology Subclavian Dissection/Stenosis - Neck CTA indicating: * Prominence of a small dissection versus less likely focal noncalcified plaque at the origin of the left subclavian artery without evidence of hemodynamically significant stenosis. - Vascular surgery consulted Pneumonia - RLL pneumonia vs viral URI vs aspiration - Treatment as suspected CAP d/t CXR opacity, elevated WBC, cough, and dyspnea - Empiric Rocephin/Zithromax initiated - Consider pulmonary consultation as outpatient for PFTS for likely COPD - Add HEIDY in house if needed Alcohol use: Patient endorses 6-8 alcoholic beverages (vodka) per day - Last drink / @ 1400 - Thiamine protocol ordered - Folic acid ordered Tobacco use: Currently 2 PPD - Cessation recommended especially in the setting of CVA and family history of cardiac risk - Nicotine patch if needed Hypokalemic periodic paralysis: Potassium 3.7, clinical condition consistent with CVA rather than periodic paralysis BMP daily DVT prophylaxis: Additional chemical ppx contraindicated d/t TNKase, SCDs at this time Dispo: ICU Code Status: Full code Diet: N.p.o. until able to pass dysphagia screen Admission and Anticipated Discharge Date Admission Date: July 01, 2022 Goldie Gomez is a 46 M with history of alcohol (6-8 servings vodka daily, last drink 2 PM 07/01) and tobacco use (2 PPD) who take no medications at home who presented for evaluation of left facial droop and left arm/hand weakness that began Sunday afternoon. Patient was found to be experiencing an ischemic CVA and received TNKase and is now being monitor in the intensive care unit. Patient denies any personal history of ID or heart disease, but notes that his mother had cardiac disease/heart attacks in her 30s as well as DM. 07/03: Review of Systems Review of Systems: As per HPI Results & Data Results & Data ([place]) Vital Signs (Past 12 Hours) Vital Signs Pulse Resp BP Pulse Ox 07/03/22 05:00 91 H 9 L 94 07/03/22 05:00 137/99 07/03/22 04:00 95 H 27 H 92 07/03/22 04:00 132/94 07/03/22 03:00 99 H 25 H 91 07/03/22 03:00 132/101 H 07/03/22 02:00 84 8 L 90 07/03/22 02:00 133/112 H 07/03/22 01:00 91 H 4 L 89 L 07/03/22 01:00 135/102 H 07/03/22 00:00 97 H 7 L 88 L 07/03/22 00:00 138/111 H 07/02/22 23:00 84 7 L 92 07/02/22 23:00 132/102 H 07/02/22 22:00 97 H 15 87 L 07/02/22 21:00 103 H 19 94 07/02/22 21:00 135/110 H 07/02/22 20:40 104 H 16 95 07/02/22 20:40 132/104 H 07/02/22 20:00 105 H 32 H 91 07/02/22 19:00 104 H 41 H 93 Resident Activity Tracking Resident Involvement: Resident Care Provided Care Provided: Adult Hospital Medicine (2) Cerebrovascular accident CVA mechanism: unspecified Qualified Code(s): I63.9 - Cerebral infarction, unspecified
[2022-07-03] MEDS: FOLIC ACID 1 MG TAB PO SCH (08:01)
[2022-07-03] MEDS: ATORVASTATIN 40 MG TAB PO SCH (08:01)
[2022-07-03] MEDS: THIAMINE HCL 100 MG TAB PO SCH (08:01)
[2022-07-03] MEDS: MULTIVITAMIN TAB PO SCH (08:01)
--- NOTE | 2022-07-03 08:23 | Hospitalist Progress Note ---
Medical Student Supervision Note: I was personally present during medical student patient encounter and independently interviewed and examined the patient and verified the martinez history and physical, reviewed labs and image studies, discussed the case with Gali Gonzalez and agree with the findings and care plan. reported feeling short of breath, worse with laying down. has been going on for few month. no chest pain no focal weakness denies any feeling of anxiousness, jitteriness o/e - mild respiratory distress off and on during visit lung - decreased breath sounds at base with mild crackles at bases heart - regular no focal neuro weakness a/p - acute CVA s/p TKA - doing well. start aspirin when able to. statin, BP control. encourage quitting smoking. new onset systolic CMP - EF 15%. high risk of CAD as etiology. for [facility] as outpatient. will need vest on discharge. coreg added. acute systolic chf- likely contributing to dyspnea and orthopnea - lasix 20mgs IV one dose. subclavian artery dissection - vascular surgery consulted. CT chest to r/o possiblity of dissection origin in aortic arch. AUD - AWSS protocol placed to monitor for withdrawal. follow for outpatient management SCD Date of Service July 03, 2022 Assessment & Plan (1) Thrombolytic medication administered within last 5 days: (2) Cerebrovascular accident: (3) Dissection of subclavian artery: (4) Tobacco use: (5) Alcohol use: (6) Elevated blood pressure reading: (7) Pneumonia: (8) Elevated troponin: Plan Jason is a 46 M with history of alcohol (6-8 servings vodka daily, last drink 2 PM 3/4) and tobacco use (2 PPD) who presented for evaluation of left facial droop and left arm/hand weakness that began Sunday afternoon. Patient was found to be experiencing an ischemic CVA and received TNKase and diagnosed with new HFrEF on Echo (EF <15%) Cerebrovascular Accident (a/w L Arm Weakness and Facial Droop) - Symptom onset: 0 - S/p TNKase: 1817 (start ASA 24 hours post TNKase) - CT results above - MRI showing ischemic injury of R Frontal and Parietal Lobes - Hx of similar episode in 2020, self resolved, aspirin recommended at this time but not started - 24 hour repeat imaging per protocol - Statin started on admission - Patient actively managed in ICU, post TNKase protocol - BP goals <180/105 - Managed w/ Labetalol, 3 switched to Carvedilol and beta chiki. - Echo ordered results below - Appreciate Neurology recs; begin aspirin 81 mg, high intensity statin, cessation of smoking and alcohol, thiamine protocol ordered New Onset, Heart Failure (HFrEF) with acute exacerbation - Echocardiogram performed 07/02/22 indicating severe biventricular failure, including: * EF < 15% * Dilation of RV and LV * Moderate MR and TR * RV systolic pressure elevation to 30-40 mmHg * IVC moderately dilated - DDx: ischemic heart disease, alcohol induced cardiomyopathy (active alcohol overuse), Viral Myocarditis (recent flu-like illness), amyloidosis (familial) - Low respiratory rates, crackles heard at lung bases, Chest CTA showing pulmonary congestion; 07/03 BNP of 2646 - Appreciate Cardiology recs; added IV Lasix for pulmonary congestion, Carvedilol 3.125 mg BID per guideline directed medical therapy for systolic HF and BP management, Jardiance 10 mg PO daily - Cardiology recommending cardiac catheterization; patient declines at this time. Patient is open to outside facility catheterization. - Per cardiology, cardiac CTA or cardiac MRI as outpatient recommended - Per cardiology, LifeVest ordered based on EF <15% for bridge to ICD placement once EF > 35% - Further guideline directed medical therapy to include Aspirin 81 mg, BECKA Inhibitor, high intensity statin, spironolactone, and beta chiki initiation Subclavian Dissection/Stenosis - Neck CTA indicating: * Prominence of a small dissection versus less likely focal noncalcified plaque at the origin of the left subclavian artery without evidence of hemodynamically significant stenosis. - Appreciate vascular surgery recs: CTA with partially visualized L subclavian artery dissection, which appears worse than previous imaging over 1 yr ago.Ordered Chest CTA. - Chest CTA revealed "Atheromatous and atherosclerotic plaque of the thoracic aortic arch and left subclavian artery origin results in approximately 40% stenosis of the subclavian artery." Appreciate further recommendations. Elevated Troponin - 3/6 elevated high sensitivity Troponin of 458; likely secondary to cardiomyopathy and not an acute coronary syndrome - Cardiology recommends cardiac cath- patient declined at this time; outside coronary angiography also recommended as alternative - Cardiac CTA or cardiac MRA recommended for outpatient setting - Low-dose aspirin, beta-chiki, high-intensity statin initiated - Trend troponin Pneumonia vs. Pulmonary congestion secondary to HFrEF - Treatment as suspected CAP d/t CXR opacity, elevated WBC, cough, and dyspnea - 07/01 Chest Xray revealed "R lower lung airspace opacity may represent atelectasis, pneumonia, and/or aspiration. Peribronchial thickening compatible with airways disease" - Empiric Rocephin/Zithromax initiated -07/03 Chest CTA revealed "mild mediastinal lymphadenopathy with pretracheal lymph nodes measuring up to 1.3 cm. Mild right hilar lymphadenopathy. Small left with moderate right pleural effusions. Intralobular septal thickening with mild intermixed groundglass densities. Mild pulmonary emphysema. Mild dependent bibasilar atelectasis." -07/03 Chest Xray showed clear lungs and no evidence of pleural effusions. - Given normalization of WBC count, lack of consolidation on Chest CTA and Chest Xray, b/l crackles on physical exam, elevated BNP, more likely HFrEF exacerbation. Will continue abx with initiation of diuretic therapy and monitor symptoms and labs. 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 Patient was found to be experiencing an ischemic CVA and received TNKase and is now being monitored on telemetry. Patient denies any personal history of NV or heart disease, but notes that his mother had cardiac disease/heart attacks in her 30s as well as DM. 07/03: He is feeling okay today but did not sleep well because his breathing gets so shallow. He says he wakes up feeling short of breath and has had this trouble sleeping for the past 10 days- 2 weeks; he also states that he snores overnight. He does not have chest pain, palpitations, syncope, or presyncope. His left arm weakness feels slightly better than yesterday. His left thumb is numb but he does not have numbness elsewhere in his left arm. He continues to have some dysesthesia in his left hand. Review of Systems Gastrointestinal: no nausea, vomiting, dysphagia, diarrhea, hematochezia Physical Exam Constitutional: Gen- WN/WD, non-toxic appearing, lying on his side, dyspneic HEENT- NC/AT, PERRL, oral and pharyngeal mucosa moist Pulm- decreased breath sounds b/l in lower lobes, decreased to percussion b/l in lower lobes, faint crackles heard in lower right lung saunders, no rales, no egophony. equal breath sounds, dyspneic at rest. CV- mildly tachycardic, no m/r/g appreciated. no JVD. clubbing of fingers bilaterally. no LE edema. Abd- non-tender to palpation in all 4 quadrants Neuro- Cranial Nerves: II: PERRL and accommodation. III/IV/: intact. VII: asymmetric smile with drooping of the left side. cannot puff out cheeks as much on L side. VIII: can hear whisper b/l. IX/X: palate elevation normal, tongue deviates to t he right. XI: 5/5 strength of sternocleidomastoid and trapezius muscles. Motor: 5/5 strength R upper extremities, 4/5 strength in L upper extremity, particularly L finger abduction. 5/5 strength in b/l LE. Reflexes: +2/4 bilaterally in biceps, brachioradialis, patellar, Achilles. (+) Babinski Sensation: intact to sharp and dull in b/l UE and LE except for thumb on L side Coordination: somewhat slowed rapidly alternating movements, [id number] normal. (-) pronator drift. Psych- normal affect, a bit tearful. Results & Data Results & Data ([facility]) Vital Signs (Past 12 Hours) Vital Signs Pulse Resp BP Pulse Ox 07/03/22 05:00 91 H 9 L 94 07/03/22 05:00 137/99 07/03/22 04:00 95 H 27 H 92 07/03/22 04:00 132/94 07/03/22 03:00 99 H 25 H 91 07/03/22 03:00 132/101 H 07/03/22 02:00 84 8 L 90 07/03/22 02:00 133/112 H 07/03/22 01:00 91 H 4 L 89 L 07/03/22 01:00 135/102 H 07/03/22 00:00 97 H 7 L 88 L 07/03/22 00:00 138/111 H 07/02/22 23:00 84 7 L 92 07/02/22 23:00 132/102 H 07/02/22 22:00 97 H 15 87 L 07/02/22 21:00 103 H 19 94 07/02/22 21:00 135/110 H 07/02/22 20:40 104 H 16 95 07/02/22 20:40 132/104 H (2) Cerebrovascular accident CVA mechanism: unspecified Qualified Code(s): I63.9 - Cerebral infarction, unspecified
[2022-07-03] MEDS ORDERED: AZITHROMYCIN 250 MG TAB PO SCH (09:00)
[2022-07-03] MEDS ORDERED: cefTRIAXone SODIUM 2,000 MG in DEXTROSE 5% 50 ML IV SCH (09:00)
[2022-07-03 09:03] LABS: Troponin I High Sensitivity 458.1 pg/ml (0-20)
[2022-07-03 10:11] LABS: Estimated Average Glucose 111 mg/dl; Hemoglobin A1C 5.5 % (4.5-5.6)
[2022-07-03] MEDS: ASPIRIN 81 MG ECTAB PO SCH (10:19)
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
[2022-07-03] MEDS ORDERED: OPTIRAY 320 125ml IV ONE (11:40)
[2022-07-03] MEDS: carvediloL 3.125 MG TAB PO SCH ×2 (11:46→21:20)
[2022-07-03] MEDS: FUROSEMIDE INJ 20 MG/2 ML VIAL IV SCH (11:46)
--- NOTE | 2022-07-03 12:25 | CT Scan Report ---
CT angio chest dissec wo/w con CT DOSE: 1185.41 mGycm HISTORY: 46 years-old Male with left subclavan artery dissection. Follow-up study in a patient with possible dissection of the left subclavian artery. TECHNIQUE: Multiple CTA images of the chest were obtained after the intravenous administration of 113 ml Optiray. Coronal and sagittal MIPS were obtained from the axial data set and were submitted for review. All measurements were obtained according to NASCET criteria. A dose lowering technique was u tilized adhering to the principles of ALARA. COMPARISON: CTA neck 07/01/2022, 04/05/2021 FINDINGS: CTA: Moderate cardiomegaly without pericardial effusion. No thoracic aortic aneurysm or dissection. Mild t o moderate atheromatous and atherosclerotic plaque of the thoracic aortic arch with moderate probably atheromatous plaque of the proximal left subclavian artery, progressively worsened from 2020 resulti ng in 40% luminal narrowing. The other remaining great vessels are unremarkable. No dissection identi fied. Unremarkable pulmonary artery. CT CHEST: No thyroid nodule. There is mild mediastinal lymphadenopathy with pretracheal lymph nodes measuring u p to 1.3 cm. Mild right hilar lymphadenopathy also noted. Small left with moderate right pleural effu sions. Intralobular septal thickening with mild intermixed groundglass densities. Mild pulmonary emph ysema. Mild dependent bibasilar atelectasis. Central airways are patent. Contracted gallbladder. Increased density of the central gallbladder is likely secondary to mucosal e nhancement. Cholelithiasis considered less likely. Mild nonspecific bilateral perinephric stranding. Unremarkable soft tissues. No acute fracture. IMPRESSION: 1. Cardiomegaly with pulmonary edema, small left and moderate right pleural effusions. 2. Atheromatous and atherosclerotic plaque of the thoracic aortic arch and left subclavian artery sylvia gin results in approximately 40% stenosis of the subclavian artery. 3. No dissection or aneurysm. 4. Emphysema. ACT 112: Negative or not required by law. The above report was generated using voice recognition software. It may contain grammatical, syntax o r spelling errors. Electronically signed by: Myron Estrada M.D. 07/03/2022 12:23 PM
--- NOTE | 2022-07-03 14:07 | XRay Report ---
XR chest 2V PA/lateral CLINICAL HISTORY: dyspnea TECHNIQUE: 2 views of the chest were obtained. Comparison: Comparison is made to chest radiograph 07/01/2022 FINDINGS: No lines and tubes are seen. Cardiomegaly is noted. The lungs are clear. No evidence of pleural effus ion or pneumothorax. IMPRESSION: No acute chest disease. ACT 112: Negative or not required by law. Electronically signed by: Steve Camejo M.D. 07/03/2022 2:06 PM
[2022-07-03] MEDS ORDERED: PROCHLORPERAZINE 5 MG in SYRINGE 8 ML IV ONE (16:28)
[2022-07-03] MEDS ORDERED: PROCHLORPERAZINE IV ONE (16:45)
[2022-07-03] MEDS ORDERED: PROCHLORPERAZINE 5 MG in SYRINGE 4 ML IV ONE (16:45)
[2022-07-04 06:46] LABS: Hemoglobin 15.7 g/dl (14.0-18.0); Mean Corpuscular Hemoglobin 34.4 pg (25.0-34.0); Mean Corpuscular Hgb Conc 35.7 g/dL (32.0-36.0); Mean Corpuscular Volume 96.5 fL (80.0-100.0); Mean Platelet Volume 11.8 fL (9.4-12.4); Platelet Count 195 K/uL (130-400); RDW Coefficient of Variation 13.9 % (11.5-14.5); RDW Standard Deviation 49.1 fL (36.4-46.3); Red Blood Count 4.56 M/uL (4.70-6.10); White Blood Count 11.61 K/ul (4.8-10.8)
[2022-07-04 07:13] LABS: Albumin Globulin Ratio 1.4 (0.9-2); Albumin Level 3.6 gm/dl (3.4-5.0); BUN Creatinine Ratio 14.7 (10-20); Bilirubin,Total 1.3 mg/dl (0.2-1.0); Creatinine Clr Calc Pharmacy 72.5 ml/min; Est GFR (African American) 72.3 ml/min; Est GFR (Non-African American) 62.4 ml/min; Globulin 2.6 gm/dl (2.5-4.0); Potassium 4.2 mmol/L (3.5-5.1); Total Protein 6.2 gm/dl (6.0-8.3)
[2022-07-04 07:20] LABS: Troponin I High Sensitivity 328.7 pg/ml (0-20)
--- NOTE | 2022-07-04 08:08 | Communication Note ---
Date of Service: July 04, 2022 Moderate narrowing of the left subclavian artery origin. No dissection seen on cta of aorta or subclavian artery. No intervention needed at this time. Thank you very much for letting us participate in the care of this patient.
--- NOTE | 2022-07-04 08:24 | Hospitalist Progress Note ---
Medical Student Supervision Note: I was personally present during medical student patient encounter and independently interviewed and examined the patient and verified the martinez history and physical, reviewed labs and image studies, discussed the case with Gali Gonzalez and agree with the findings and care plan. shortness of breath much improved since yesterday. no chest pain no focal weakness denies any feeling of anxiousness, jitteriness o/e - comfortable in bed sitting and laying down lung - decreased breath sounds at base with mild crackles at bases heart - regular no focal neuro weakness a/p - acute CVA s/p TKA - doing well. start aspirin when able to. statin, BP control. encourage quitting smoking. new onset systolic CMP - EF 15%. high risk of CAD as etiology. for [facility] as o utpatient. will need vest on discharge. coreg added. Jardiance added acute systolic chf- dyspnea improved with diuresis. Neg 600ml. continue lasix 20mgs IV. subclavian artery dissection - vascular surgery consulted. CT chest with no dissection origin in aortic arch. No intervention recommended. AUD - AWSS protocol placed to monitor for withdrawal. follow for outpatient management. Patient has quit himself in past. Transaminitis - likely from hepatic congestion due to chf. continue diuresis and follow LFT SCD Date of Service July 04, 2022 Assessment & Plan (1) Thrombolytic medication administered within last 5 days: (2) Cerebrovascular accident: (3) Dissection of subclavian artery: (4) Tobacco use: (5) Alcohol use: (6) Elevated blood pressure reading: (7) Pneumonia: (8) Elevated troponin: Allen Gomez is a 46 M with history of alcohol (6-8 servings vodka daily, last drink 2 PM 07/01) and tobacco use (2 PPD) who presented for evaluation of left facial droop and left arm/hand weakness that began Sunday afternoon. Patient was found to be experiencing an ischemic CVA and received TNKase and diagnosed with new HFrEF on Echo (EF <15%) New Onset, Heart Failure (HFrEF) with acute exacerbation - Echocardiogram performed 07/02/22 indicating severe biventricular failure, including: * EF < 15% * Dilation of RV and LV * Moderate MR and TR * RV systolic pressure elevation to 30-40 mmHg * IVC moderately dilated - DDx: ischemic heart disease, alcohol induced cardiomyopathy (active alcohol overuse), Viral Myocarditis (recent flu-like illness), amyloidosis (familial) - Low respiratory rates, crackles heard at lung bases, Chest CTA showing pulmonary congestion; 3 BNP of 2646 - Diuresis with 20 mg IV Lasix, strict I/Os, monitor symptoms - Appreciate Cardiology recs; added IV Lasix for pulmonary congestion, Carvedilol 3.125 mg BID per guideline directed medical therapy for systolic HF and BP management, Jardiance 10 mg PO daily - Cardiology recommending cardiac catheterization; patient declines at this time. Patient is open to outside facility catheterization. - Per cardiology, cardiac CTA or cardiac MRI as outpatient recommended - Per cardiology, LifeVest ordered based on EF <15% for bridge to ICD placement once EF > 35% - Further guideline directed medical therapy to include Aspirin 81 mg, BECKA Inhibitor, high intensity statin, spironolactone, and beta chiki initiation Cerebrovascular Accident (a/w L Arm Weakness and Facial Droop) - Symptom onset: 1530 - S/p TNKase: 1817 (start ASA 24 hours post TNKase) - CT results above - MRI showing ischemic injury of R Frontal and Parietal Lobes - Hx of similar episode in 2020, self resolved, aspirin recommended at this time but not started - 24 hour repeat imaging per protocol - Statin started on admission - Patient actively managed in ICU, post TNKase protocol - BP goals <180/105 - Managed w/ Labetalol, 07/03 switched to Carvedilol and beta chiki. - Echo ordered results above - Appreciate Neurology recs; begin aspirin 81 mg, high intensity statin, cessation of smoking and alcohol, thiamine protocol ordered. Recommended outpt follow-up in 2-3 weeks Subclavian Dissection/Stenosis - Neck CTA indicating: * Prominence of a small dissection versus less likely focal noncalcified plaque at the origin of the left subclavian artery without evidence of hemod ynamically significant stenosis. - Appreciate vascular surgery recs; CTA with partially visualized L subclavian artery dissection; Chest CTA for further evaluation revealed "Atheromatous and atherosclerotic plaque of the thoracic aortic arch and left subclavian artery origin results in approximately 40% stenosis of the subclavian artery" - No intervention recommended at this time Elevated Troponin - 3/6 elevated high sensitivity Troponin of 458; likely secondary to cardiomyopathy and not an acute coronary syndrome - Cardiology recommends cardiac cath- patient declined at this time; outside coronary angiography also recommended as alternative - Cardiac CTA or cardiac MRA recommended for outpatient setting - Low-dose aspirin, beta-chiki, high-intensity statin initiated -07/04 Troponin 328 Pneumonia vs. Pulmonary congestion secondary to HFrEF - Treatment as suspected CAP d/t CXR opacity, elevated WBC, cough, and dyspnea - 07/01 Chest Xray revealed "R lower lung airspace opacity may represent atelectasis, pneumonia, and/or aspiration. Peribronchial thickening compatible w ith airways disease" Empiric Rocephin/Zithromax for suspected CAP; - 07/03 Chest CTA without consolidation revealing "Mild right hilar lymphadenopathy. Small left with moderate right pleural effusions. Intralobular septal thickening with mild intermixed groundglass densities. Mild pulmonary emphysema. Mild dependent bibasilar atelectasis." - 07/03 Chest Xray showed clear lungs and no evidence of pleural effusions - Given normalization of WBC count, lack of consolidation on Chest CTA and Chest Xray, b/l crackles on physical exam, elevated BNP, more likely HFrEF exacerbation. - 07/04: Abx discontinued given clinical and laboratory improvement, paucity of signs of infxn - Consider PFTs as outpatient for emphysema demonstrated on Chest CTA Alcohol use: Patient endorses 6-8 alcoholic beverages (vodka) per day - Last drink 07/01 @ 1400 - Thiamine protocol ordered - Folic acid ordered -AWSS protocol; scores of 0-3 - Patient has expressed desire to quit post-discharge. 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 Reyez is feeling better this morning. He slept better because he said h e was able to lie more flat without as much shortness of breath. He continues to have some numbness of his left thumb but says his fingers are less stuck in a flexed position. He feels he has more strength in his left arm. He does not have any chest pain, palpitations, abdominal pain, n/v. He reported some nausea yesterday evening which was improved with some anti-nausea medication. Review of Systems Review of Systems: see HPI Physical Exam Constitutional: Gen- WN/WD, non-toxic appearing, sitting comfortably in bed HEENT- NC/AT, PERRL, oral and pharyngeal mucosa moist Pulm- decreased breath sounds b/l in lower lobes, faint crackles heard in lower right lung saunders, no rales. equal breath sounds, no use of accessory muscles. CV- mildly tachycardic, S4 gallop. no JVD., - hepatojugular reflex. clubbing of fingers bilaterally. no LE edema. Abd- non-tender to palpation in all 4 quadrants Neuro- Cranial Nerves: II: PERRL and accommodation. III/IV/: intact. VII: normal eyebrow raise, squeeze eyes shut, symmetric smile. VIII: can hear whisper b/l. IX/X: palate elevation normal, tongue deviates to the right. XI: 5/5 strength of sternocleidomastoid and trapezius muscles. Motor: 5/5 strength R upper extremities, 5/5 strength in L upper extremity, 4/5 strength L finger abduction. 5/5 strength in b/l LE. Reflexes: +2/4 bilaterally in biceps, brachioradialis, patellar, Achilles Sensation: intact to sharp and dull in b/l UE and LE except for thumb on L side Psych- normal mood and affect Results & Data Results & Data ([facility]) Vital Signs (Past 12 Hours) Vital Signs Temp Pulse Pulse Resp BP Pulse Ox O2 Del Method 07/04/22 06:48 36.9 C 67 67 20 156/91 H 97 Room Air (2) Cerebrovascular accident CVA mechanism: unspecified Qualified Code(s): I63.9 - Cerebral infarction, unspecified
[2022-07-04] MEDS: EMPAGLIFLOZIN 10 MG TAB PO SCH (09:01)
[2022-07-04] MEDS: ATORVASTATIN 40 MG TAB PO SCH (09:01)
[2022-07-04] MEDS: ASPIRIN 81 MG ECTAB PO SCH (09:01)
[2022-07-04] MEDS: FOLIC ACID 1 MG TAB PO SCH (09:01)
[2022-07-04] MEDS: carvediloL 3.125 MG TAB PO SCH ×2 (09:01→20:24)
[2022-07-04] MEDS: MULTIVITAMIN TAB PO SCH (09:01)
[2022-07-04] MEDS: THIAMINE HCL 100 MG TAB PO SCH (09:02)
[2022-07-04] MEDS: FUROSEMIDE INJ 20 MG/2 ML VIAL IV SCH (09:02)
--- NOTE | 2022-07-04 12:04 | Neurology Progress Note ---
Date of Service July 04, 2022 Assessment & Plan (1) Acute CVA (cerebrovascular accident): (2) Weakness on left side of face: (3) Left arm weakness: (4) Hypertension: (5) Hypokalemic periodic paralysis: (6) Shortness of breath: Plan patient has a history of an acute cerebral vascular accident July 01. There are 2 small strokes in the periphery in the right frontal and right parietal. I suspect this was 1 larger stroke that reduced because of the TNK. He does not have other old small vessel ischemic disease on MRI and there is nothing to support emboli although he has significant cardiac dysfunction with reduced cardiac output. He is clinically Markedly improving and only has some residual clumsiness of the left hand. The rest of his neurologic examination is largely unremarkable. He has multiple stroke risk factors including chronic heavy cigarette smoking, significant longstanding hypertension, and likely some early diabetes. I do not know what his lipids are but this is pending. His cardiac disease and reduced cardiac output is a risk for stroke as well. This is likely the cause of his chest pain and shortness of breath. He is a heavy alcohol user. He has a history of hypokalemic periodic paralysis but I do not believe this has anything to do with his current stroke. Recommendations: 1. Continue 81 mg aspirin tablet daily. the see no indication for anticoagulation at this time. 2. Control blood pressure as you are doing, slowly weaning him down to a mean arterial pressure of 110 and then after a few days aim for 95-100. 3. watch for alcohol withdrawal and continue with thiamine. I see no signs of alcohol withdrawal today. 4. Discontinue all cigarettes 5. Discontinue alcohol usage 6. awaiting hemoglobin A1c and fasting lipid profile. He would be a high dose statin candidate. 7. Please contact me if I can be of further assistance on this case. I would see him back in 2-3 weeks with PA as an outpatient. overall, I spent a total of 35 minutes with this case including review of records, review of MRI films, direct evaluation of the patient at bedside, and discussion of the case with the patient and RN at bedside, and Dr. Sierra, including differential diagnosis and treatment options. Admission and Anticipated Discharge Date Admission Date: July 01, 2022 Subjective Patient feels much better this morning and has no significant weakness. He has for some residual clumsiness of the left hand. Patient had a repeat CT scan showed no acute changes. CT angiography of the chest revealed no subclavian dissection ( 40% stenosis ). Blood pressure is 128/99. Results & Data ([facility]) Vital Signs (Past 12 Hours) Vital Signs Temp Pulse Pulse Resp BP Pulse Ox O2 Del Method 07/04/22 08:00 36.6 C 91 H 22 128/99 98 Room Air 07/04/22 06:48 36.9 C 67 67 20 156/91 H 97 Room Air Exam (Neuro) Physical Exam: he is awake and alert. Speech is without aphasia or dysarthria. Mood and affect are normal appropriate. Thought processes are intact with good memory and conversation. Extraocular eye muscles are intact without nystagmus. There is no obvious facial droop. Coordination is normal in the arms without tremor or ataxia. He does have some clumsiness in left hand although this is much improved compared to yesterday. Otherwise strength is 5/5 in all 4 limbs. Sitting up in bed is quite normal. PG Care Time/CCT Total # of Minutes Spent Total Time Spent with Patient: Total time spent is greater than 50% in coordination of care (as documented) at patient's floor/unit and/or counseling patient: Coding Level of Care Code 27148 SUB INP/OBS CARE 2/35MIN Diagnoses Acute CVA (cerebrovascular accident) I63.9 Weakness on left side of face R29.810 Left arm weakness R29.898 Hypertension I10 Hypokalemic periodic paralysis G72.3 Shortness of breath R06.02
--- NOTE | 2022-07-04 17:26 | Cardiology Progress Note ---
Date of Service July 04, 2022 Assessment & Plan (1) Cardiomyopathy: Plan: Severe LV systolic dysfunction of unknown defined etiology. He is willing to undergo diagnostic coronary angiography at a tertiary center which we will arrange for as an outpatient. Currently he has no evidence of volume overload by physical exam although he did have improvement in his dyspnea with IV Lasix. He has tolerated initiation of guideline directed medical therapy for chronic systolic heart failure. He will remain on carvedilol 3.125 mg p.o. twice daily and Jardiance 10 mg daily. It appears that his blood pressure would tolerate the addition of Entresto at low dose. We will initiate that to begin tomorrow. We will also change his Lasix to 20 mg p.o. beginning tomorrow. As an outpatient we will likely also add spironolactone. A LifeVest has been ordered given his high risk of sudden cardiac . Awaiting fitment. (2) Hypertension: Plan: Blood pressure controlled with elevation in the afternoons. Continue carvedilol and add Entresto. (3) Elevated troponin: Plan: Most likely this is a type II non-ST elevation MN given global profound hypokinesis on echo. He may have underlying coronary disease (likely multivessel if present) but does not want coronary angiography at this institution. We will treat him presumptively for underlying coronary disease with guideline directed medical therapy for secondary prevention. This includes aspirin 81 mg daily, high intensity statin therapy, beta-chiki, and BECKA inhibitor/ARB as tolerated. Entresto contains angiotensin receptor chiki and he is already on carvedilol. (4) Atherogenic dyslipidemia: Plan: Patient has peripheral arterial disease based on CTA. This alone makes him high risk category. If he also has coronary disease this would solidify his high risk category. Under current guidelines he is recommended for high intensity statin therapy. Currently started on a atorvastatin 40 mg daily. His baseline untreated LDL was 154 making target LDL reduction greater than or equal to 50% to be 77 or less. His HDL is also low (24) but we do not have good medications to increase this. We will recommend regular exercise. His triglycerides are adequately controlled. Admission and Anticipated Discharge Date Admission Date: July 01, 2022 Subjective Patient feeling better today. Denies any chest pain and shortness of breath has resolved with diuresis. He has thus far tolerated addition of beta-chiki and had good blood pressure and heart rate response to this. Review of Systems Review of Systems: Negative except as per HPI Physical Exam Constitutional: WD/WN, vitals as above Neck: No JVD Respiratory: Clear to auscultation bilaterally. No wheezing, rhonchi, or rales appreciated. Fair air movement. Cardiovascular: Regular rate and rhythm. S4 gallop. 2 out of 6 systolic murmur. Neurologic: Appears to be improving. Residual left upper extremity deficits. Facial droop improved. Psychiatric: A+Ox3, euthymic affect Results & Data ([facility]) Vital Signs (Past 12 Hours) Vital Signs Temp Pulse Pulse Resp BP Pulse Ox O2 Del Method 07/04/22 15:19 36.4 C L 96 H 20 128/98 96 Room Air 07/04/22 12:02 36.6 C 98 H 20 112/91 97 Room Air 07/04/22 08:00 36.6 C 91 H 22 128/99 98 Room Air 07/04/22 06:48 36.9 C 67 67 20 156/91 H 97 Room Air PG Care Time/CCT Total # of Minutes Spent Total Time Spent: 50 Total Time Spent with Patient: Total time spent is greater than 50% in coordination of care (as documented) at patient's floor/unit and/or counseling patient: [place]oding [place] [address] SUB INP/OBS CARE 3/50MIN Patient Type Established Diagnoses Cardiomyopathy I42.9 Hypertension I10 Elevated troponin R77.8 Atherogenic dyslipidemia E78.5
[2022-07-05 05:17] LABS: Hematocrit (blood only) 44.1 % (42.0-52.0); Hemoglobin 15.6 g/dl (14.0-18.0); Mean Corpuscular Hemoglobin 34.5 pg (25.0-34.0); Mean Corpuscular Hgb Conc 35.4 g/dL (32.0-36.0); Mean Corpuscular Volume 97.6 fL (80.0-100.0); Mean Platelet Volume 11.7 fL (9.4-12.4); Platelet Count 214 K/uL (130-400); RDW Standard Deviation 50.4 fL (36.4-46.3); Red Blood Count 4.52 M/uL (4.70-6.10); White Blood Count 10.58 K/ul (4.8-10.8)
[2022-07-05 05:18] LABS: BUN Creatinine Ratio 14.4 (10-20); Calcium 8.7 mg/dl (8.5-10.1); Creatinine Clr Calc Pharmacy 64.5 ml/min; Est GFR (African American) 62.7 ml/min; Est GFR (Non-African American) 54.1 ml/min; Potassium 4.3 mmol/L (3.5-5.1)
[2022-07-05] MEDS: ASPIRIN 81 MG ECTAB PO SCH (07:45)
[2022-07-05] MEDS: ATORVASTATIN 40 MG TAB PO SCH (07:45)
[2022-07-05] MEDS: carvediloL 3.125 MG TAB PO SCH (07:45)
[2022-07-05] MEDS: MULTIVITAMIN TAB PO SCH (07:46)
[2022-07-05] MEDS: FOLIC ACID 1 MG TAB PO SCH (07:46)
[2022-07-05] MEDS: EMPAGLIFLOZIN 10 MG TAB PO SCH (07:46)
[2022-07-05] MEDS: THIAMINE HCL 100 MG TAB PO SCH (07:46)
[2022-07-05] MEDS ORDERED: VALSARTAN/SACUBITRIL 26/24MG TAB PO SCH (09:00)
[2022-07-05] MEDS ORDERED: FUROSEMIDE 20 MG TAB PO SCH (09:00)
[2022-07-05 11:18] LABS: Albumin Level 3.8 gm/dl (3.4-5.0); Bilirubin Direct 0.2 mg/dl (0-0.2); Total Protein 6.6 gm/dl (6.0-8.3)
--- NOTE | 2022-07-05 12:18 | Hospitalist Progress Note ---
Date of Service July 05, 2022 Assessment & Plan (1) Thrombolytic medication administered within last 5 days: (2) Cerebrovascular accident: (3) Dissection of subclavian artery: (4) Tobacco use: (5) Alcohol use: (6) Elevated blood pressure reading: (7) Pneumonia: (8) Elevated troponin: Plan Jason is a 46 M with history of alcohol (6-8 servings vodka daily, last drink 2 PM 07/01) and tobacco use (2 PPD) who presented for evaluation of left facial droop and left arm/hand weakness that began Sunday afternoon. Patient was found to be experiencing an ischemic CVA and received TNKase and diagnosed with new HFrEF on Echo (EF <15%) New Onset, Heart Failure (HFrEF) with acute exacerbation - Echocardiogram performed 07/02/22 indicating severe biventricular failure, including: * EF < 15% * Dilation of RV and LV * Moderate MR and TR * RV systolic pressure elevation to 30-40 mmHg * IVC moderately dilated - DDx: ischemic heart disease, alcohol induced cardiomyopathy (active alcohol overuse), Viral Myocarditis (recent flu-like illness), amyloidosis (familial) - Low respiratory rates, crackles heard at lung bases, Chest CTA showing pulmonary congestion; 07/03 BNP of 2646 - Diuresis with 20 mg IV Lasix, strict I/Os, monitor symptoms -07/05 per cardiology, switched to PO 20 mg Lasix - Appreciate Cardiology recs; Carvedilol 3.125 mg BID per guideline directed medical therapy for systolic HF and BP management, Jardiance 10 mg PO daily -07/05 added Entresto () - Cardiology recommending cardiac catheterization; patient declines at this time. Patient is open to outside facility catheterization. - Per cardiology, cardiac CTA or cardiac MRI as outpatient recommended - Per cardiology, LifeVest ordered based on EF <15% for bridge to ICD placement once EF > 35% - Further guideline directed medical therapy to include Aspirin 81 mg, Entresto, high intensity statin, spironolactone, and beta chiki initiation Cerebrovascular Accident (a/w L Arm Weakness and Facial Droop) - Symptom onset: 0 - S/p TNKase: 1817 (start ASA 24 hours post TNKase) - CT results above - MRI showing ischemic injury of R Frontal and Parietal Lobes - Hx of similar episode in 2021, self resolved, aspirin recommended at this time but not started - 24 hour repeat imaging per protocol - Statin started on admission - Patient actively managed in ICU, post TNKase protocol - BP goals <180/105 - Managed w/ Labetalol, 3 switched to Carvedilol and beta chiki. - Echo ordered results above - Appreciate Neurology recs; begin aspirin 81 mg, high intensity statin, cessation of smoking and alcohol, thiamine protocol ordered. Recommended outpt follow-up in 2-3 weeks Subclavian Dissection/Stenosis - Neck CTA indicating: * Prominence of a small dissection versus less likely focal noncalcified plaque at the origin of the left subclavian artery without evidence of hemodynamically significant stenosis. - Appreciate vascular surgery recs; CTA with partially visualized L subclavian artery dissection; Chest CTA for further evaluation revealed "Atheromatous and atherosclerotic plaque of the thoracic aortic arch and left subclavian artery origin results in approximately 40% stenosis of the subclavian artery" - No intervention recommended at this time Elevated Troponin - 07/03 elevated high sensitivity Troponin of 458; likely secondary to cardiomyopathy and not an acute coronary syndrome - Cardiology recommends cardiac cath- patient declined at this time; outside coronary angiography also recommended as alternative - Cardiac CTA or cardiac MRA recommended for outpatient setting - Low-dose aspirin, beta-chiki, high-intensity statin initiated -07/04 Troponin 328; stopped trending Pneumonia vs. Pulmonary congestion secondary to HFrEF - Treatment as suspected CAP d/t CXR opacity, elevated WBC, cough, and dyspnea - 3 Chest Xray revealed "R lower lung airspace opacity may represent atelectasis, pneumonia, and/or aspiration. Peribronchial thickening compatible with airways disease" Empiric Rocephin/Zithromax for suspected CAP; - 3 Chest CTA without consolidation revealing "Mild right hilar lymphadenopathy. Small left with moderate right pleural effusions. Intralobular septal thickening with mild intermixed groundglass densities. Mild pulmonary emphysema. Mild dependent bibasilar atelectasis." - 3 Chest Xray showed clear lungs and no evidence of pleural effusions - Given normalization of WBC count, lack of consolidation on Chest CTA and Chest Xray, b/l crackles on physical exam, elevated BNP, more likely HFrEF exacerbation. - 07/04: Abx discontinued given clinical and laboratory improvement, paucity of signs of infxn - Consider PFTs as outpatient for emphysema demonstrated on Chest CTA Alcohol use: Patient endorses 6-8 alcoholic beverages (vodka) per day - Last drink 3/ @ 1400 - Thiamine protocol ordered - Folic acid ordered -AWSS protocol; scores of 0-3 - Patient has expressed desire to quit post-discharge. Has not used medication in the past Tobacco use: Currently 2 PPD - Cessation recommended especially in the setting of CVA and family history of cardiac risk - Nicotine patch deferred at this time due to risk of ischemia Hypokalemic periodic paralysis: Potassium 3.7, clinical condition consistent with CVA rather than periodic paralysis BMP daily DVT prophylaxis: Additional chemical ppx contraindicated d/t TNKase, SCDs at this time Dispo: Med/Tele Code Status: Full code Diet: normal diet Admission and Anticipated Discharge Date Admission Date: July 01, 2022 Subjective Mr. Reyez is doing about the same today. He has much less shortness of breath, particularly while sleeping or laying flat. He reports no chest pain, palpitations, paroxysmal nocturnal dyspnea, orthopnea, nausea, or abdominal pain. He thinks his left upper extremity strength has continued to improve, but today felt like his speech wasn't as good with his left facial drooping. His thumb is still numb. He reiterated his desire to stop drinking and smoking after leaving the hospital. Review of Systems Review of Systems: see HPI Physical Exam Constitutional: Gen- WN/WD, non-toxic appearing, sitting comfortably in bed HEENT- NC/AT, PERRL, oral and pharyngeal mucosa moist Pulm- decreased breath sounds b/l in lower lobes, faint crackles heard in lower left lung saunders, no rales. equal breath sounds, no use of accessory muscles. CV- mildly tachycardic, S4 gallop. no JVD., - hepatojugular reflex. clubbing of fingers bilaterally. no LE edema. Abd- non-tender to palpation in all 4 quadrants Neuro- Cranial Nerves:II- XII grossly intact. Motor: 5/5 strength R upper extremities, 5/5 strength in biceps, triceps b/l. 4/5 strength in L shoulder abduction, 4/5 strength L finger abduction. 5/5 strength in b/l LE. Reflexes not assessed Sensation: intact b/l UE and LE except for thumb on L side Psych- normal mood and affect Results & Data Results & Data ([facility]) Vital Signs (Past 12 Hours) Vital Signs Temp Pulse Pulse Resp BP BP Pulse Ox 07/05/22 11:30 36.5 C 96 H 18 119/91 92 07/05/22 08:01 88 29 H 07/05/22 07:32 142/99 H 07/05/22 07:32 96 H 25 H 07/05/22 07:00 83 16 07/05/22 06:00 86 13 07/05/22 05:00 93 H 29 H 07/05/22 08:00 89 07/05/22 07:58 07/05/22 07:36 36.7 C 97 H 18 142/99 H 99 07/05/22 04:00 89 25 H 139/81 07/05/22 03:00 87 27 H 07/05/22 02:00 91 H 19 07/05/22 01:00 86 32 H O2 Del Method 07/05/22 11:30 Room Air 07/05/22 08:01 07/05/22 07:32 07/05/22 07:32 07/05/22 07:00 07/05/22 06:00 07/05/22 05:00 07/05/22 08:00 07/05/22 07:58 Room Air 07/05/22 07:36 Room Air 07/05/22 04:00 07/05/22 03:00 07/05/22 02:00 07/05/22 01:00 (2) Cerebrovascular accident CVA mechanism: unspecified Qualified Code(s): I63.9 - Cerebral infarction, unspecified
--- NOTE | 2022-07-05 16:17 | Discharge Summary ---
Date of Service July 05, 2022 Admission HPI Per Admitting Provider Jason Reyez is a 46-year-old male who presents with left upper extremity weakness onset approximately 3 thready inability to move left arm. No trauma. No anticoagulants. No history of diabetes or prior stroke. Placing the bedside post TNKase. Reports he had left-sided facial droop, left arm and hand weakness, facial droop which began this afternoon and around 330. Similar episode in 03/2021 after to seen in the ER a which had improved and felt more like it was asleep, given his prior history of periodic hypokalemic paralysis patient was discharged and recommended to continue aspirin daily. Patient has not taken any medications including aspirin recently. He does not have any difficulty understanding speech or expressing himself. He is having difficulty forming words/speech, and has weakness and numbness in his hand. Cannot feel his left hand at all. No improvement in symptoms since TNKase.Sensation left leg is normal. Denies history of heart attack, heart disease. No recent fever, chills, sweats, abdominal pain, or illness. Does use tobacco products 2 packs/day, and marijuana leaf several times per week. Drinks 6-8 drinks of vodka daily with last drink 2-3 yesterday afternoon. Patient was seen by telestroke who was present at time of exam, and TNKase was recommended as noted in ER note and was given at 1817. Recommend follow-up evaluation of subclavian, additional fluid for hemodilution even if pharmacologic control of blood pressure is required, and preference for nicardipine for blood pressure control overnight. Goal blood pressure parameters 180/105. Recommend statin initiation, thiamine and otherwise routine post TN K care. Family history reviewed, pertinent positive patient's mother was with early cardiac disease with [place] in 30s. Family history of diabetes in his mother. Noted medication allergies. Admission Exam Per Admitting Provider General: A&Ox3. NAD. Cooperative. HEENT: Atraumatic, normocephalic. Pupils equal and reactive to light Pulm: CTAB A&P. -wheezes, -rales, -rhonchi. Symmetrical chest rise. No increased work of breathing. No respiratory distress. Cardiac: RRR, -mrg. Radial pulses intact and symmetrical. Abdominal: Nontender, nondistended, soft. BS present. CRANIAL NERVES: II: Pupils equal and reactive, vision grossly intact III, IV, : EOM intact V: normal sensation in V1, V2, and V3 segments bilaterally VII: Left-sided facial droop appreciable VIII: normal hearing to speech IX, X: normal palatal elevation, no uvular deviation XI: 5/5 head turn and 5/5 shoulder shrug bilaterally XII: Tongue deviates right of midline on protrusion MOTOR: LUE: 3/5 Shoulder flexion 5/5 Elbow flexion/extension, wrist flexion/extension 0/5 food general manager strength RUE: 5/5 Elbow flexion/extension 5/5 food general manager strength RLE: 5/5 to hip flexion, ankle dorsiflexion/plantarflexion LLE: 5/5 to hip flexion, ankle dorsiflexion/plantarflexion Sensory: Sensation absent to soft touch in left hand distal to the wrist. Sensation is intact to soft touch in the left forearm and left upper arm. Normal sensation to soft touch in right arm, and legs bilaterally. Principal Diagnosis Ischemic Stroke Discharge Exam Gen- WN/WD, non-toxic appearing, sitting comfortably in bed HEENT- NC/AT, PERRL, oral and pharyngeal mucosa moist Pulm- decreased breath sounds b/l in lower lobes, faint crackles heard in lower left lung saunders, no rales. equal breath sounds, no use of accessory muscles. CV- S1, S2, S4 gallop. no JVD., - hepatojugular reflex. clubbing of fingers bilaterally. no LE edema. Abd- non-tender to palpation in all 4 quadrants Neuro- Cranial Nerves:II- XII grossly intact. Motor: 5/5 strength R upper extremities, 5/5 strength in biceps, triceps b/l. 4/5 strength in L shoulder abduction, 4/5 strength L finger abduction. 5/5 strength in b/l LE. Reflexes not assessed Sensation: intact b/l UE and LE except for thumb on L side Psych- normal mood and affect Discharge Data Allergies Allergy/AdvReac Type Severity Reaction Status Date / Time No Known Allergies Allergy Mild Verified 07/01/22 17:55 Consultations 07/01/22 18:21 ED Decision to Admit Stat 07/01/22 20:14 Consult Veneer Jointer Helper Routine Consult Neurology Routine Consult Vascular Surgery Routine 07/02/22 13:46 Consult Cardiology Routine Ordered Studies 07/01/22 17:46 CT angio head w con Stat CT angio neck with con Stat CT head/brain wo con Stat 07/01/22 19:09 MRI Brain [MR brain wo con] Urgent 07/02/22 16:31 CT head/brain wo con Routine 07/03/22 10:23 CTA chest dissec wo/w con [CT angio chest dissec wo/w con] Routine Cardiac Enzymes 07/05/22 07/05/22 Range/Units 04:47 10:49 AST 131 H Cancelled (13-39) U/L CBC 07/05/22 Range/Units 04:47 WBC 10.58 (4.8-10.8) K/ul RBC 4.52 L (4.70-6.10) M/uL Hgb 15.6 (14.0-18.0) g/dl Hct 44.1 (42.0-52.0) % Plt Count 214 (130-400) K/uL Comprehensive Metabolic Panel 07/05/22 07/05/22 Range/Units 04:47 10:49 Sodium 133 L (136-145) mmol/L Potassium 4.3 (3.5-5.1) mmol/L Chloride 100 (98-107) mmol/L Carbon Dioxide 26 (21-32) mmol/L BUN 22 (6-23) mg/dl Creatinine 1.53 H (0.6-1.4) mg/dl Glucose 110 H (70-99(Fasting)) mg/dl Calcium 8.7 (8.5-10.1) mg/dl Direct Bilirubin 0.2 Cancelled (0-0.2) mg/dl AST 131 H Cancelled (13-39) U/L ALT 201 H Cancelled (7-52) U/L Alkaline Phosphatase 100 Cancelled (34-104) U/L Total Protein 6.6 Cancelled (6.0-8.3) gm/dl Albumin 3.8 Cancelled (3.4-5.0) gm/dl Intake and Output 07/05/22 07/05/22 07/05/22 06:59 14:59 22:59 Intake Total 120 / 840 Balance 120 / 240 Intake: Oral 120 / 840 Other: Weight 91.2 kg Patient Weight 07/06/22 06:59 Weight 91.2 kg Chest X-Ray 07/01/22 17:46 XR chest 1V portable CLINICAL HISTORY: neuro deficit, acute stroke suspected TECHNIQUE: Single frontal radiograph of the chest was obtained. Comparison: Comparison is made to chest radiograph 04/05/2021 FINDINGS: No lines and tubes are seen. Cardiomegaly is noted. Right lower lung airspace opacity is seen. There is cephalization of the vasculature noted. No evidence of pleural effusion or pneumothorax. IMPRESSION: 1. Right lower lung airspace opacity may represent atelectasis, pneumonia, and/or aspiration. Peribronchial thickening is seen compatible with airways disease. 2. Cardiomegaly and mild pulmonary hypertension. ACT 112: Negative or not required by law. Electronically signed by: Steve Camejo M.D. 07/01/2022 6:[address] 07/01/22 17:46 CT angio neck with con, CT angio head w con, CT head/brain wo con CLINICAL HISTORY: neuro deficit, acute stroke suspected TECHNIQUE: Contiguous axial CT images of the head were acquired from the base of the skull to the vertex without intravenous contrast administration. CT angiography of the head and neck was performed following intravenous administration of iodinated contrast. Coronal and sagittal MIPS were obtained from the axial data set and were submitted for review. Automated dose lowering techniques and/or adjustment according to patient size were utilized for this examination. All measurements were calculated based on NASCET criteria. CT DOSE: 1929.07 mGy.cm Comparison: None available at the time of this dictation. FINDINGS: CT head: There is no acute intracranial hemorrhage or evidence of acute territorial infarction. No shift of the midline structures, mass effect, or extra-axial abnormalities are shown. Bilateral paranasal sinus disease is seen. Bilateral emphysema is noted. Subcentimeter mediastinal lymph nodes are seen. CTA Neck: A 3 vessel aortic arch is shown. There is interval enlargement of a dissection versus prominent atherosclerosis in the left subclavian artery origin. This now results in greater than 50% with greater than 70% narrowing of the vessel lumen. This does not appear to extend into the distal subclavian artery or vertebral artery. There is mild calcified atherosclerotic plaque at the bifurcation of the bilateral common carotid arteries without hemodynamically significant flow stenosis. There is no dissection present. The vertebral arteries are codominant. CTA Head: The anterior and posterior cerebral circulations are patent. No hemodynamically significant stenosis, aneurysm, dissection, or arteriovenous malformation is shown. IMPRESSION: 1. No acute intracranial hemorrhage, evidence of acute territorial infarction, or other acute intracranial disease process. 2. Interval increased prominence of a small dissection versus less likely focal noncalcified plaque at the origin of the left subclavian artery without evidence of hemodynamically significant stenosis. No evidence of extension to the distal subclavian or vertebral arteries. 3. No occlusion, hemodynamically significant stenosis, aneurysm, dissection, or arteriovenous malformation in the major intracranial arteries. Assessment of stenosis of the internal carotid arteries is based on NASCET criteria. ACT 112: Negative or not required by law. Electronically signed by: Steve Camejo M.D. 07/01/2022 6:22 PM Head CTA 07/01/22 17:46 CT angio neck with con, CT angio head w con, CT head/brain wo con CLINICAL HISTORY: neuro deficit, acute stroke suspected TECHNIQUE: Contiguous axial CT images of the head were acquired from the base of the skull to the vertex without intravenous contrast administration. CT angiography of the head and neck was performed following intravenous administration of iodinated contrast. Coronal and sagittal MIPS were obtained from the axial data set and were submitted for review. Automated dose lowering techniques and/or adjustment according to patient size were utilized for this examination. All measurements were calculated based on NASCET criteria. CT DOSE: 1929.07 mGy.cm Comparison: None available at the time of this dictation. FINDINGS: CT head: There is no acute intracranial hemorrhage or evidence of acute territorial infarction. No shift of the midline structures, mass effect, or e xtra-axial abnormalities are shown. Bilateral paranasal sinus disease is seen. Bilateral emphysema is noted. Subcentimeter mediastinal lymph nodes are seen. CTA Neck: A 3 vessel aortic arch is shown. There is interval enlargement of a dissection versus prominent atherosclerosis in the left subclavian artery origin. This now results in greater than 50% with greater than 70% narrowing of the vessel lumen. This does not appear to extend into the distal subclavian artery or vertebral artery. There is mild calcified atherosclerotic plaque at the bifurcation of the bilateral common carotid arteries without hemodynamically significant flow stenosis. There is no dissection present. The vertebral arteries are codominant. CTA Head: The anterior and posterior cerebral circulations are patent. No hemodynamically significant stenosis, aneurysm, dissection, or arteriovenous malformation is shown. IMPRESSION: 1. No acute intracranial hemorrhage, evidence of acute territorial infarction, or other acute intracranial disease process. 2. Interval increased prominence of a small dissection versus less likely focal noncalcified plaque at the origin of the left subclavian artery without evidence of hemodynamically significant stenosis. No evidence of extension to the distal subclavian or vertebral arteries. 3. No occlusion, hemodynamically significant stenosis, aneurysm, dissection, or arteriovenous malformation in the major intracranial arteries. Assessment of stenosis of the internal carotid arteries is based on NASCET criteria. ACT 112: Negative or not required by law. Electronically signed by: Steve Camejo M.D. 07/01/2022 6:22 PM Neck CTA 07/01/22 17:46 CT angio neck with con, CT angio head w con, CT head/brain wo con CLINICAL HISTORY: neuro deficit, acute stroke suspected TECHNIQUE: Contiguous axial CT images of the head were acquired from the base of the skull to the vertex without intravenous contrast administration. CT a ngiography of the head and neck was performed following intravenous administration of iodinated contrast. Coronal and sagittal MIPS were obtained from the axial data set and were submitted for review. Automated dose lowering techniques and/or adjustment according to patient size were utilized for this examination. All measurements were calculated based on NASCET criteria. CT DOSE: 1929.07 mGy.cm Comparison: None available at the time of this dictation. FINDINGS: CT head: There is no acute intracranial hemorrhage or evidence of acute territorial infarction. No shift of the midline structures, mass effect, or extra-axial abnormalities are shown. Bilateral paranasal sinus disease is seen. Bilateral emphysema is noted. Subcentimeter mediastinal lymph nodes are seen. CTA Neck: A 3 vessel aortic arch is shown. There is interval enlargement of a dissection versus prominent atherosclerosis in the left subclavian artery origin. This now results in greater than 50% with greater than 70% narrowing of the vessel lumen. This does not appear to extend into the distal subclavian artery or vertebral artery. There is mild calcified atherosclerotic plaque at the bifurcation of the bilateral common carotid arteries without hemodynamically significant flow stenosis. There is no dissection present. The vertebral arteries are codominant. CTA Head: The anterior and posterior cerebral circulations are patent. No hemodynamically significant stenosis, aneurysm, dissection, or arteriovenous malformation is shown. IMPRESSION: 1. No acute intracranial hemorrhage, evidence of acute territorial infarction, or other acute intracranial disease process. 2. Interval increased prominence of a small dissection versus less likely focal noncalcified plaque at the origin of the left subclavian artery without evidence of hemodynamically significant stenosis. No evidence of extension to the distal subclavian or vertebral arteries. 3. No occlusion, hemodynamically significant stenosis, aneurysm, dissection, or arteriovenous malformation in the major intracranial arteries. Assessment of stenosis of the internal carotid arteries is based on NASCET criteria. ACT 112: Negative or not required by law. Electronically signed by: Steve Camejo M.D. 07/01/2022 6:22 PM Brain MRI 07/01/22 19:09 Exam(s): MRI HEAD Without Contrast EXAM: MR Head Without Intravenous Contrast CLINICAL HISTORY: Reason for exam: Suspected CVA post TNKase. TECHNIQUE: Magnetic resonance images of the head/brain without intravenous contrast in multiple planes. COMPARISON: Comparison made to prior noncontrast head CT from the same day. FINDINGS: Brain: Findings concerning for a small acute ischemic injury in the right frontal and parietal lobes with mild cytotoxic edema, without evidence of hemorrhagic transformation. Minimal nonspecific white matter changes. The flow voids at the base of the right are intact. Ventricles: Unremarkable. No ventriculomegaly. Bones/joints: Unremarkable. Sinuses: Unremarkable as visualized. No acute sinusitis. Mastoid air cells: Unremarkable as visualized. No mastoid effusion. Orbits: Unremarkable as visualized. IMPRESSION: Small acute ischemic injuries of the right frontal and parietal lobes with mild cytotoxic edema without evidence of hemorrhagic transformation. Recommend CT angiogram of the head and neck for further evaluation. Electronically signed by: Yelena Pelayo MD 07/02/22 00:[address] 07/02/22 16:31 CT head/brain wo con CLINICAL HISTORY: 46 years-old Male with repeat post CVA/TNKase. Acute strokelike symptoms TECHNIQUE: Multiple axial CT images of the head were obtained without contrast. A dose lowering technique was utilized adhering to the principles of ALARA. CT DOSE: 614.27 mGy.cm COMPARISON: Brain MRI 07/01/2022 FINDINGS: No acute intracranial hemorrhage, midline shift, intracranial mass, h ydrocephalus, or abnormal extra-axial collection. Ill-defined right frontal parietal small infarcts redemonstrated with mild cytotoxic edema. The calvarium is intact. Mild polypoid mucosal thickening of the right maxillary sinus. Mastoid air cells are clear. IMPRESSION: 1. No acute intracranial hemorrhage or midline shift. 2. Small ill-defined right frontal parietal infarcts redemonstrated, better characterized on the comparison brain MRI. ACT 112: Negative or not required by law. The above report was generated using voice recognition software. It may contain grammatical, syntax or spelling errors. Electronically signed by: Myron Estrada M.D. 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 Follow-up study in a patient with possible dissection of the left subclavian artery. TECHNIQUE: Multiple CTA images of the chest were obtained after the intravenous administration of 113 ml Optiray. Coronal and sagittal MIPS were obtained from the axial data set and were submitted for review. All measurements were ob tained according to NASCET criteria. A dose lowering technique was utilized adhering to the principles of ALARA. COMPARISON: CTA neck 07/01/2022, 04/05/2021 FINDINGS: CTA: Moderate cardiomegaly without pericardial effusion. No thoracic aortic aneurysm or dissection. Mild to moderate atheromatous and atherosclerotic plaque of the thoracic aortic arch with moderate probably atheromatous plaque of the proximal left subclavian artery, progressively worsened from 2020 resulting in 40% luminal narrowing. The other remaining great vessels are unremarkable. No dissection identified. Unremarkable pulmonary artery. CT CHEST: No thyroid nodule. There is mild mediastinal lymphadenopathy with pretracheal lymph nodes measuring up to 1.3 cm. Mild right hilar lymphadenopathy also noted. Small left with moderate right pleural effusions. Intralobular septal thickening with mild intermixed groundglass densities. Mild pulmonary emphysema. Mild dependent bibasilar atelectasis. Central airways are patent. Contracted gallbladder. Increased density of the central gallbladder is likely secondary to mucosal enhancement. Cholelithiasis considered less likely. Mild nonspecific bilateral perinephric stranding. Unremarkable soft tissues. No acute fracture. IMPRESSION: 1. Cardiomegaly with pulmonary edema, small left and moderate right pleural effusions. 2. Atheromatous and atherosclerotic plaque of the thoracic aortic arch and left subclavian artery origin results in approximately 40% stenosis of the subclavian artery. 3. No dissection or aneurysm. 4. Emphysema. ACT 112: Negative or not required by law. The above report was generated using voice recognition software. It may contain grammatical, syntax or spelling errors. Electronically signed by: Myron Estrada M.D. 07/03/2022 12:23 PM Chest X-Ray 07/03/22 10:43 XR chest 2V PA/lateral CLINICAL HISTORY: dyspnea TECHNIQUE: 2 views of the chest were obtained. Comparison: Comparison is made to chest radiograph 07/01/2022 FINDINGS: No lines and tubes are seen. Cardiomegaly is noted. The lungs are clear. No evidence of pleural effusion or pneumothorax. IMPRESSION: No acute chest disease. ACT 112: Negative or not required by law. Electronically signed by: Steve Camejo M.D. 07/03/2022 2:06 PM Hospital Course (1) Thrombolytic medication administered within last 5 days: (2) Cerebrovascular accident: (3) Dissection of subclavian artery: (4) Tobacco use: (5) Alcohol use: (6) Elevated blood pressure reading: (7) Pneumonia: (8) Elevated troponin: Allen Gomez is a 46 M with history of alcohol (6-8 servings vodka daily, last drink 2 PM 07/01) and tobacco use (2 PPD) who presented for evaluation of left facial droop and left arm/hand weakness that began Sunday afternoon. Patient was found to be experiencing an ischemic CVA and received TNKase and diagnosed with new HFrEF on Echo (EF <15%) New Onset, Heart Failure (HFrEF) with acute exacerbation - Echocardiogram performed 07/02/22 indicating severe biventricular failure, including: - EF < 15% - Dilation of RV and LV - Moderate MR and TR - RV systolic pressure elevation to 30-40 mmHg - IVC moderately dilated - DDx: ischemic heart disease, alcohol induced cardiomyopathy (active alcohol overuse), Viral Myocarditis (recent flu-like illness), amyloidosis (familial) - Low respiratory rates, crackles heard at lung bases, Chest CTA showing pulmonary congestion; 07/03 BNP of 2646 - Diuresis with Lasix 20 mg during this admission - Appreciate Cardiology recs; Carvedilol 3.125 mg BID per guideline directed medical therapy for systolic HF and BP management, Jardiance 10 mg PO daily -07/05 added Entresto (26/24mg) - Cardiology recommending cardiac catheterization; patient declines at this time. Patient is open to outside facility catheterization. - Per cardiology, cardiac CTA or cardiac MRI as outpatient recommended - Per cardiology, LifeVest ordered based on EF <15% for bridge to ICD placement once EF > 35% - Further guideline directed medical therapy to include Aspirin 81 mg, Entresto, high intensity statin, spironolactone, and beta chiki initiation - Discharge to home with prescription for outpatient physical therapy - Follow-up with Cardiology in 1 week; discuss cardiac rehab Cerebrovascular Accident (a/w L Arm Weakness and Facial Droop) - Symptom onset: 1530 - S/p TNKase: 1817 (start ASA 24 hours post TNKase) - CT results above - MRI showing ischemic injury of R Frontal and Parietal Lobes - Hx of similar episode in 2020, self resolved, aspirin recommended at this time but not started - 24 hour repeat imaging per protocol - Statin was started on admission - Patient actively managed in ICU, post TNKase protocol - BP goals <180/105 - Managed w/ Labetalol, 07/03 switched to Carvedilol and beta chiki. - Echo ordered results above - Appreciate Neurology recs; begin aspirin 81 mg, high intensity statin, cessation of smoking and alcohol, thiamine protocol ordered. - Follow-up with neurology in 2-3 weeks Subclavian Dissection/Stenosis - Neck CTA indicating: - Prominence of a small dissection versus less likely focal noncalcified plaque at the origin of the left subclavian artery without evidence of hemodynamically significant stenosis. - Appreciate vascular surgery recs; CTA with partially visualized L subclavian artery dissection; Chest CTA for further evaluation revealed "Atheromatous and atherosclerotic plaque of the thoracic aortic arch and left subclavian artery origin results in approximately 40% stenosis of the subclavian artery" - No intervention recommended at this time Elevated Troponin - 07/03 elevated high sensitivity Troponin of 458; likely secondary to cardiomyopathy and not an acute coronary syndrome - Cardiology recommends cardiac cath- patient declined at this time; outside coronary angiography also recommended as alternative - Cardiac CTA or cardiac MRA recommended for outpatient setting - Low-dose aspirin, beta-chiki, high-intensity statin initiated -07/04 Troponin 328; stopped trending Pulmonary congestion secondary to HFrEF - 07/01 Chest Xray revealed "R lower lung airspace opacity may represent atelecta sis, pneumonia, and/or aspiration. Peribronchial thickening compatible with airways disease" Empiric Rocephin/Zithromax for suspected CAP - 07/03 Chest CTA without consolidation revealing "Mild right hilar lymphadenopathy. Small left with moderate right pleural effusions. Intralobular septal thickening with mild intermixed groundglass densities. Mild pulmonary emphysema. Mild dependent bibasilar atelectasis." - 07/03 Chest Xray showed clear lungs and no evidence of pleural effusions - 07/04: Abx discontinued given clinical and laboratory improvement, paucity of signs of infxn - Consider PFTs as outpatient for emphysema demonstrated on Chest CTA Alcohol use: Patient endorsed 6-8 alcoholic beverages (vodka) per day - Last drink 07/01 @ 1400 - Thiamine and folic acid protocol ordered during this admission -AWSS protocol; scores of 0-3 - Patient expressed desire to quit post-discharge. Has not used medication in the past Tobacco use: Currently 2 PPD - Cessation recommended especially in the setting of CVA and family history of cardiac risk - Nicotine patch deferred during this admission due to risk of ischemia Patient was full code during this admission. Total Time Total Time Spent Total Time Spent (In Minutes): see attending documentation Discharge Plan Discharge Items Patient Disposition: Home - Self-Care Reason For Visit: POST TNKASE, L ARM WEAKNESS/FACIAL DROOP Discharge Diagnosis: Ischemic stroke severe cardiomyopathy Activity: Per Instructions section Non-emergency contact: Primary Care Provider, Napkin Machine Operator and Neurologist Call non-emergency contact if: you have any medication questions, your symptoms worsen, your pain is worsening, your pain is concerning for you, you have a fever and your temperature is above 101 Follow-up/Referrals: Andrea Ambrose MD, PhD [Physician] - 07/10/22 10:00 am (cardiology f/u within 1 week, requested by Dr. Keller for high risk severe CHF EF of <15%) Savannah Newman PA [Physician Warehouse Worker] - 07/24/22 11:00 am (dr. tong's PA) PCP,NO [Primary Care Provider] - (patient to make f/u apt w/ pcp in 1 wk) Diet: Heart Healthy Addtl Attending Provider Instructions: You presented to the hospital with left arm and hand weakness. This suggested a stroke and you were given a thrombolytic medication to treat this. You were also found to have a severe reduction in the function of your heart (ejection fraction <15% instead of 50-70%). The cause is unknown at this time, but one potentially reversible cause would be from a blockage. This can be identified via a heart catheterization which the budget director recommended. You were given a defibrillator vest to wear to restart your heart if an emergency occurs. To treat your heart, new medications have been added. It is very important for you to follow up with the budget director (07/10 10AM) and neurologist (07/24 11AM). You also had neck imaging that was reassuring per the CT scan. It is also very important to quit smoking and alcohol. Your PCP can assist you in this. Follow up with PCP within 1 week of leaving the hospital. A paper prescription will be given for physical therapy. See medication list below for doses and frequency. A 1 month supply of your new medications have been sent to your pharmacy. baby aspirin 81mg every morning atorvastatin 40mg every morning carvedilol 3.125mg twice a day Entresto 1 tablet twice a day furosemide 20mg every morning Jardiance daily CONTACT YOUR PRIMARY CARE PROVIDER if you experience any of the following: * Fevers or shaking chills * Shortness of breath not relieved by inhalers, fainting * Sudden abdominal distension not relieved by catheterization. * Difficulty following your treatment plan, or difficulty taking medications CALL 911 OR GO TO THE EMERGENCY DEPARTMENT if you experience any of the following: * Sudden, severe abdominal pain or nausea/vomiting * Severe chest pain, or chest pain that radiates (moves) to your jaw or arm * Sudden, severe shortness of breath or difficulty breathing Pending Studies at Discharge: No Stand-Alone Forms: My [facility], Smoking Cessation Medications and DC Order Prescriptions: New atorvastatin 40 mg Tablet 40 mg PO QAM 30 Days Qty: 30 1RF carvedilol 3.125 mg Tablet 3.125 mg PO BID 30 Days Qty: 60 1RF Entresto 24-26 mg Tablet 1 tab PO BID 30 Days Qty: 60 1RF aspirin 81 mg Tablet,Delayed Release (Dr/Ec) 81 mg PO QAM 30 Days Qty: 30 1RF furosemide 20 mg Tablet 20 mg PO QAM 30 Days Qty: 30 1RF Jardiance 10 mg Tablet 10 mg PO DAILY 30 Days Qty: 30 1RF No Action No Known Home Medications Discharge Orders: Discharge Order- CHF (Routine); Ordered 07/05/22 Ordered By: Parvez Gregory Admission Data Admit Date/Time: 07/01/22 19:09 Attending Provider: Dilcia Sierra Admit Provider: Semaj Lopez Primary Care Provider: PCP,NO Other Providers: Darryl Patterson ; Semaj Lopez ; Jean Pierre Tong ; Joshua Saldana ; Trent Soares ; Yung Harper ; [facility] ; [facility],Home Healthcare ; [facility] ; [facility] Fax Other Interventions: Discharge Summary Assessment (RN) Last Done: 07/05/22 17:39 Supervising Physician Co-Signing Physician Notes Medical Student Supervision Note: I was personally present during medical student patient encounter and independently interviewed and examined the patient and verified the martinez history and physical, reviewed labs and image studies, discussed the case with Gali Gonzalez and agree with the findings and care plan. Doing well today. feeling ready to go home. no chest pain, shorntess of breath no focal weakness o/e - comfortable in bed sitting and laying down lung - clear heart - regular no focal neuro weakness a/p - Acute ischemic CVA s/p TKA - did well post TKA. started on aspirin, statin. encouraged quitting smoking. New onset systolic CMP - shortness of breath over few months. EF 15%. high risk of CAD as etiology. for LHC/cardiac MR as outpatient. vest arranged on discharge. coreg, Jardiance and Entresto added. Acute systolic chf- dyspnea improved with diuresis. Neg 600ml. Received 20mgs IV lasix. Switched lasix to PO 20mgs on discharge. 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 CT chest with no dissection origin in aortic arch. No intervention recommended. AUD - was AWSS protocol placed. No sign of withdrawal. Patient has quit himself in past. Discussed D and A outpatient services. Patient reluctant. to further assess and discuss as outpatient Transaminitis - Normal LFT on admission. elevation likely from hepatic congestion due to chf. continued diuresis improved LFT. should have f/u LFT and consider testing hepatits profile as outpatient. CT chest with emphysema findings - consider PFT as outpatient. Outpatient PT order given. Unable to arrange home health due to life vest. Cardiology to assess need for cardiac rehab at f/u visit.
== END 2022-07-05 17:41 | disposition home or self-care (01) | DRG 61 ==
LOC: ED 17:34 → 1E 19:09 → SUATTDRO 19:09 → 1E 19:33

== ENCOUNTER 2023-07-08 23:04 | Observation (INO) ==
--- OUTSIDE RECORDS SUMMARY | 2023-07-08 23:09 | External Medical Summary ---
Author Name Unknown Address Unknown Organization [id number]:[facility] - [address] [place] [address] [place] [address] Laboratory Report Ordering Provider Test Date Status YOUNG ARELLANO 02/21/2023 09:24:05 Final Observation Date Value Abnormality Reference (Units ) Status BUN 02/21/2023 09:24:05 14 6-20 (mg/dL) Final Creatinine 02/21/2023 09:24:05 0.9 0.6-1.2 (mg/dL) Final Glomerular filtration rate/1.73 sq M.predicted [Volume Rate/Area] in Serum, Plasma or Blood by Creatinine-based formula (CKD-EPI) 02/21/2023 09:24:05 >90 >=60 (mL/min) Final eGFR is calculated based on the CKD-EPI 2020 equation SODIUM 02/21/2023 09:24:05 138 135-146 (m mol/L) Final Potassium 02/21/2023 09:24:05 3.9 3.5-5.1 (m mol/L) Final Cl 02/21/2023 09:24:05 101 98-107 (mm ol/L) Final CO2 02/21/2023 09:24:05 26 22-32 (mmo l/L) Final Anion gap 02/21/2023 09:24:05 11 7-15 (mmol /L) Final Glucose 02/21/2023 09:24:05 108 70-120 (mg /dL) Final Calcium 02/21/2023 09:24:05 9.7 8.4-10.2 ( mg/dL) Final Albumin 02/21/2023 09:24:05 4.7 3.8-5.0 (g /dL) Final Phosphate 02/21/2023 09:24:05 3.5 2.5-4.8 (m g/dL) Final Performing Location [facility] - [address] [place] [address]
--- OUTSIDE RECORDS SUMMARY | 2023-07-08 23:09 | External Medical Summary ---
Author Name Unknown Address Unknown Organization : Laboratory Report Ordering Provider Test Date Status ALEXIS MACK 02/21/2023 11:22:43 Final NORMAL (NON-HEPARINIZED) 74- 137 SECONDS
HEPARINIZED 200+ SECONDS
CRITICAL GREATER THAN 1000 SECONDS
null Observation Date Value Abnormality Reference (Units ) Status Kaolin activated time [Units/volume] in Blood 02/21/2023 11:22:43 377 50-1000 (secs) Final Performing Location
--- OUTSIDE RECORDS SUMMARY | 2023-07-08 23:09 | External Medical Summary | Summary of Care ---
Author Name Unknown Organization [facility] Address [address] [place] [address] Phone [phone] Care Team Providers Care Processing Technologist Name Role Phone Unavailable Primary Care Provider Unavailabl e Encounter Details Date Type Department Care Team (Late st Contact Info) Description 02/21/2023 Telephone Cardiology [facility] [address] [place] [address] [facility] [address] [place] [address] Allergies No known active allergiesdocumented as of this encounter (statuses as of 02/21/2023) Medications Medication Sig Dispensed Refills Start Date End Date Status Atorvastatin Calcium 80 MG Oral Tablet (Lipitor) Take 1 Tablet by mouth every afternoon. Do not start before February 22, 2023. 90 Tablet 3 02/22/2023 Active Clopidogrel Bisulfate 75 MG Oral Tablet (pLAVix) Take 1 Tablet by mouth in the morning. Do not start before February 22, 2023. 90 Tablet 3 02/22/2023 Active Nitroglycerin 0.4 MG Sublingual Tablet Sublingual (Nitrostat) Place 1 Tablet under the tongue every 5 minutes as needed for Pain, Chest. 25 Tablet 5 02/21/2023 Active Aspirin 81 MG Oral Tablet Chewable Take 1 Tablet by mouth in the morning. 100 Tablet 3 02/21/2023 Active Jardiance 10 MG Oral Tablet Take 1 Tablet by mouth in the morning. In the morning.. 0 Suspended Entresto 24-26 MG Oral Tablet Start: 01/12/23 12:40:00 EDT, 1 tab, PO, bid, Disp# 60 tab, Refills: 3, TAKE 1 TABLET BY MOUTH TWICE A DAY FOR 30 DAYS, Pharmacy: [facility]/pharmacy #[id number] 01/12/2023 05/12/2023 Suspended Furosemide 20 MG Oral Tablet (Lasix) Take 1 Tablet by mouth in the morning. In the morning.. 0 02/06/2023 Suspended Carvedilol 6.25 MG Oral Tablet (Coreg) TAKE 1 TABLET ORALLY TWICE A DAY MUST ADMINISTER WITH A MEAL/FOOD 0 02/04/2023 Suspended documented as of this encounter (statuses as of 02/21/2023) Active Problems Problem Noted Date Diagnosed Date CAD S/P percutaneous coronary angioplasty 2022 documented as of this encounter (statuses as of 02/21/2023) Social History Tobacco Use Types Packs/Day Years Used Date Smoking Tobacco: Every Day Cigarettes 1 Smokeless Tobacco: Never Alcohol Use Standard Drinks/Week Comments Not Currently 0 (1 standard drink = 0.6 oz pur e alcohol) occ Sex and Gender Information Value Date Recorded Sex Assigned at Not on file Gender Identity Not on file Sexual Orientation Not on file documented as of this encounter Plan of Treatment Upcoming Encounters Date Type Department Care Team (Late st Contact Info) Description 05/16/2023 1:40 PM EST Office Visit Cardiology [facility] [address] [place] [address] Harry Mendoza CRNP [address] [place], [place] [id number] Scheduled Procedures Name Priority Associated Diagnoses Date/Ti me CORONARY ANGIOGRAPHY W/LEFT HEART CATH Abnormal cardiac CT angiography 02/21/2023 10:35 AM EDT Health Maintenance Due Date Last Done Comments Hepatitis B (1 of 3 - 3-dose series) 1976 Lipid Panel 1976 COVID-19 Vaccine (#1) 02/28/1977 Pneumococcal Vaccine: Pediatrics (0 to 5 Years) and At-Risk Patients (6 to 64 Years) (1 - PCV) 1982 Depression Screening 1988 HIV Screening 08/29/1991 Hepatitis C Screening 1994 DTaP,Tdap,and Td Vaccines (1 - Tdap) 08/29/1995 Cologuard 2021 Colonoscopy 2021 Colorectal Cancer Screening 2021 Fecal Occult Blood Test 2021 Sigmoidoscopy 2021 Influenza Vaccine (FLU shot) (#1) 2022 Diabetes Screening 02/21/2026 02/21/2023, 11/28/2022 GARDASIL-HPV IMMUNIZATION SERIES Aged Out No longer eligible b ased on patient's age to complete this topic MENINGOCOCCAL (MENACTRA/MENVEO) Aged Out No longer eligible b ased on patient's age to complete this topic documented as of this encounter Medical Devices Implanted Type Area Metal Tester Device Identifier Shelf Expiration Date Model / Serial / Lot Stent Synergy Xd Mr [id number] - [id number] Implanted:Qty: 1 on 02/21/2023 by Roel Barton DO at [facility] [place] [employer] [id number] 11/29/2023 [id number] / / [id number] documented as of this encounter Advance Directives Latest Code Status on File Code Status Date Activated Date Inactivated Comments Full Code 02/21/2023 11:56 AM This ord er reflects the patients wishes and were consensually agreed upon. Question Answer Comments Discussion of Advance Directives occurred with: Patient Does the patient have a Living Will? No Does the patient have Health Care Power of Supervising Film Or Videotape Editor? No
--- OUTSIDE RECORDS SUMMARY | 2023-07-08 23:09 | External Medical Summary | Summary of Care ---
Author Name Unknown Organization [facility] Address [address] [place] [address] Phone [phone] Care Team Providers Care Feed Mill Supervisor Name Role Phone Unavailable Primary Care Provider Unavailabl e Reason for Visit * Reason Onset Date Comments Medication Refill 04/16/2023 Encounter Details Date Type Department Care Team (Late st Contact Info) Description 04/16/2023 Refill Cardiology [facility] [address] [place] [address] Ramez Nam CRNP [address] [place] [address] HTN, goal below 130/80*; CAD S/P percutaneous coronary angioplasty Allergies No known active allergiesdocumented as of this encounter (statuses as of 07/03/2023) Medications Medication Sig Dispensed Refills Start Date End Date Status Jardiance 10 MG Oral Tablet Take 1 Tablet by mouth in the morning. In the morning.. 0 Active Furosemide 20 MG Oral Tablet (Lasix) Take 1 Tablet by mouth in the morning. In the morning.. 0 02/06/2023 Active Carvedilol 6.25 MG Oral Tablet (Coreg) TAKE 1 TABLET ORALLY TWICE A DAY MUST ADMINISTER WITH A MEAL/FOOD 0 02/04/2023 Active Nitroglycerin 0.4 MG Sublingual Tablet Sublingual (Nitrostat) Place 1 Tablet under the tongue every 5 minutes as needed for Pain, Chest. 25 Tablet 5 02/21/2023 Active Aspirin 81 MG Oral Tablet Chewable Take 1 Tablet by mouth in the morning. 100 Tablet 3 02/21/2023 Active Atorvastatin Calcium 80 MG Oral Tablet (Lipitor)Indicatio ns:HTN, goal below 130/80,CAD S/P percutaneous coronary angioplasty Take 1 Tablet by mouth every afternoon. 90 Tablet 3 04/18/2023 Active Clopidogrel Bisulfate 75 MG Oral Tablet (pLAVix)Indication s:CAD S/P percutaneous coronary angioplasty Take 1 Tablet by mouth in the morning. 90 Tablet 3 04/18/2023 Active Entresto 24-26 MG Oral Tablet Start: 01/12/23 12:40:00 EDT, 1 tab, PO, bid, Disp# 60 tab, Refills: 3, TAKE 1 TABLET BY MOUTH TWICE A DAY FOR 30 DAYS, Pharmacy: [facility]/pharmacy #[id number] 01/12/2023 4 Atorvastatin Calcium 80 MG Oral Tablet (Lipitor) Take 1 Tablet by mouth every afternoon. Do not start before February 22, 2023. 90 Tablet 3 02/22/2023 3 Discontinued (Refill) Clopidogrel Bisulfate 75 MG Oral Tablet (pLAVix) Take 1 Tablet by mouth in the morning. Do not start before February 22, 2023. 90 Tablet 3 02/22/2023 3 Discontinued (Refill) documented as of this encounter (statuses as of 07/03/2023) Active Problems Problem Noted Date Diagnosed Date CAD S/P percutaneous coronary angioplasty 2022 documented as of this encounter (statuses as of 07/03/2023) Social History Tobacco Use Types Packs/Day Years Used Date Smoking Tobacco: Every Day Cigarettes Smokeless Tobacco: Never Alcohol Use Standard Drinks/Week Comments Not Currently 0 (1 standard drink = 0.6 oz pur e alcohol) occ Sex and Gender Information Value Date Recorded Sex Assigned at Not on file Gender Identity Not on file Sexual Orientation Not on file Job Start Date Occupation Industry Not on file Not on file Not on file documented as of this encounter Miscellaneous Notes * Telephone Encounter - Ramez Nam CRNP - 04/18/2023 12:05 PM ESTSigned Prescriptions: Disp Refills Atorvastatin Calcium 80 MG Oral Tablet (Li*90 Tab*3 Sig: Take 1 Tablet by mouth every afternoon. Authorizing Provider: RAMEZ NAM Clopidogrel Bisulfate 75 MG Oral Tablet (p*90 Tab*3 Sig: Take 1 Tablet by mouth in the morning. Authorizing Provider: RAMEZ NAM * Telephone Encounter - Ramez Nam CRNP - 04/18/2023 12:05 PM EST * Telephone Encounter - Ramez Nam CRNP - 04/18/2023 12:05 PM ESTPending Prescriptions: Disp Refills Atorvastatin Calcium 80 MG Oral Tablet (Li*90 Tab*3 Sig: Take 1Tablet by mouth every afternoon. Clopidogrel Bisulfate 75 MG Oral Tablet (p*90 Tab*3 Sig: Take 1 Tablet by mouth in the morning. documented in this encounter Plan of Treatment Upcoming Encounters Date Type Department Care Team (Late st Contact Info) Description 08/03/2023 3:00 PM EDT Office Visit Cardiology [facility] [address] [place] [address] Ramez Nam CRNP [address] [place] [address] Health Maintenance Due Date Last Done Comments DISCUSS TOBACCO CESSATION (REFER TO SMARTSET #0420) 1976 Pneumococcal Vaccine: Pediatrics (0 to 5 Years) and At-Risk Patients (6 to 64 Years) (1 of 2 - PCV) 1982 Depression Screening 1988 HIV Screening 08/29/1991 Hepatitis C Screening 1994 DTaP,Tdap,and Td Vaccines (1 - Tdap) 08/29/1995 Hepatitis B (1 of 3 - 19+ 3-dose series) 08/29/1995 Cologuard 2021 Colonoscopy 2021 Colorectal Cancer Screening 2021 Fecal Occult Blood Test 2021 Sigmoidoscopy 2021 COVID-19 Vaccine (1 - 2022-2 4 season) 2022 Influenza Vaccine (FLU shot) (#1) 2022 Diabetes Screening 02/21/2026 02/21/2023, 11/28/2022 GARDASIL-HPV IMMUNIZATION SERIES Aged Out No longer eligible b ased on patient's age to complete this topic MENINGOCOCCAL (MENACTRA/MENVEO) Aged Out No longer eligible b ased on patient's age to complete this topic documented as of this encounter Medical Devices Implanted Type Area Bobtailer Device Identifier Shelf Expiration Date Model / Serial / Lot Stent Synergy Xd Mr [id number] - [id number] Implanted:Qty: 1 on 02/21/2023 by Roel Barton DO at [facility] [employer] [id number] 11/29/2023 [id number] 270 / / [id number] Stent Synergy Xd Mr [id number] - [id number] Implanted:Qty: 1 on 02/21/2023 by Roel Barton DO at [facility] [employer] [id number] 11/29/2023 [id number] / / [id number] documented as of this encounter Visit Diagnoses Diagnosis HTN, goal below 130/80- Primary Unspecified essential hypertension CAD S/P percutaneous coronary angioplasty Coronary atherosclerosis of [place] coronary artery documented in this encounter Advance Directives Latest Code Status on File Code Status Date Activated Date Inactivated Comments Full Code 02/21/2023 11:56 AM 02/21/2023 9:13 PM Th is order reflects the patients wishes and were consensually agreed upon. Question Answer Comments Discussion of Advance Directives occurred with: Patient Does the patient have a Living Will? No Does the patient have Health Care Power of Hose Coupling Joiner? No
--- OUTSIDE RECORDS SUMMARY | 2023-07-08 23:09 | External Medical Summary | Summary of Care ---
Author Name Unknown Organization [facility] Address [address] [place] [address] Phone [phone] Care Team Providers Care Printing Screen Assembler Name Role Phone Unavailable Primary Care Provider Unavailabl e Reason for Visit * Reason Onset Date Comments Advice 05/14/2023 Reji Encounter Details Date Type Department Care Team (Late st Contact Info) Description 05/14/2023 Telephone Cardiology [facility] [address] [place] [address] Harry Mendoza CRNP [address] [place] [address] Advice (Reji) Allergies No known active allergiesdocumented as of this encounter (statuses as of 05/14/2023) Medications Medication Sig Dispensed Refills Start Date [...] Active Atorvastatin Calcium 80 MG Oral Tablet (Lipitor)Indications :HTN, goal below 130/80,CAD S/P percutaneous coronary angioplasty Take 1 Tablet by mouth every afternoon. 90 Tablet 3 04/18/2023 Active Clopidogrel Bisulfate 75 MG Oral Tablet (pLAVix)Indications: CAD S/P percutaneous coronary angioplasty Take 1 Tablet by mouth in the morning. 90 Tablet 3 04/18/2023 Active documented as of this encounter (statuses as of 05/14/2023) Active Problems Problem Noted Date Diagnosed Date CAD S/P percutaneous coronary angioplasty 2022 documented as of this encounter (statuses as of 05/14/2023) Social History Tobacco Use Types Packs/Day Years [...] encounter Miscellaneous Notes * Telephone Encounter - Ann Mroelos OSA - 05/14/2023 5:14 PM EST Pt now rescheduled in July with Birgit. He sees a Business Continuity Specialist in [facility] and may cancel this appt Ann * Telephone Encounter - Cee Suazo OSA - 05/14/2023 9:21 AM EST Person calling: Jason Relationship to patient: patient Number to return call: [phone] Reason for call: Patient would like to speak with someone about his upcoming appt. He stated that he will need to take off work and travel for this, he wants to know what the appt will entail and if this can be done with his local bariatric program coordinator instead. Please advise. Pharmacy: n/a Provider Name:Reji documented in this encounter Plan of Treatment Upcoming Encounters Date Type Department Care Team (Late st Contact Info) Description 08/03/2023 3:00 PM EDT Office Visit Cardiology [address] [address] Harry Mendoza CRNP [address] [place] [address] Health Maintenance Due Date Last Done Comments DISCUSS TOBACCO CESSATION (REFER TO SMARTSET #9375) 1976 Hepatitis B (1 of 3 - 3-dose series) 1976 COVID-19 Vaccine (#1) 02/28/1977 Pneumococcal Vaccine: [...] this encounter Medical Devices Implanted Type Area Home Inspector Device Identifier Shelf Expiration Date Model / Serial / Lot Stent Synergy Xd Mr [id number] - [id number] Implanted:Qty: 1 on 02/21/2023 by Roel Barton DO at [facility] [place] [employer] [id number] 11/29/2023 [id number] / / [id number] documented as of this encounter Advance Directives [...] the patient have Health Care Power of Bathhouse Keeper? No
--- OUTSIDE RECORDS SUMMARY | 2023-07-08 23:09 | External Medical Summary | Summary of Care ---
Author Name Unknown Organization [facility] Address [address] [place] [address] Phone [phone] Care Team Providers Care Graduate Rn Name Role Phone Unavailable Primary Care Provider Unavailabl e Reason for Referral * Evaluate & Treat - Unlimited Visits (Within 30 days (routine)) - Pending Review Specialty Diagnoses / Procedures Referred By Wayne felix Referred To Contact Family Medicine Diagnoses Status post cardiac catheterization CAD S/P percutaneous coronary angioplasty Lee Umanzor CRNP [address] [place] [address] Referral ID Status Reason Start Date Expiration Date Visits Requested Visits Authorized [id number] Pending Review Specialty Services Required [phone] Question Answer Referral Priority Within 30 days (routine) Where should this appointment be scheduled? [facility] Comments Discharge Order * Evaluate & Treat - Unlimited Visits (Within 10 days (routine)) - Pending Review Specialty Diagnoses / Procedures Referred By Wayne felix Referred To Contact [facility] / Cardiology Diagnoses S/P PTCA (percutaneous transluminal coronary angioplasty) Fani Espana MD [address] [place] [address] Referral ID Status Reason Start Date Expiration Date Visits Requested Visits Authorized [id number] Pending Review Specialty Services Required [phone] Question Answer Referral Priority Within 10 days (routine) Where should this appointment be scheduled? [facility] Modality No Preference, either is clinically appropriate Comments Discharge Order Reason for Visit * Auth/Cert Specialty Diagnoses / Procedures Referred By Wayne felix Referred To Contact Diagnoses Abnormal cardiac CT angiography Abnormal cardiac CT angiography [R93.1] Procedures CORONARY ANGIOGRAPHY W/LEFT HEART CATH CORONARY ANGIOGRAPHY W/LEFT HEART CATH Referral ID Status Reason Start Date Expiration Date Visits Re quested Visits Authorized [id number] [phone] Encounter Details Date Type Department Care Team (Latest Contact Info) Description 02/21/2023 8:57 AM EDT - 02/21/2023 5:06 PM EDT Hospital Encounter [facility], Cardiac Recovery Suite Extended Unit, [address] [place] [address] Roel Barton, DO [address] [place] [address] Various: KRAVS,EKG Discharge Disposition: Home - Self Care Allergies No known active allergiesdocumented as of this encounter (statuses as of 02/22/2023) Medications Medication Sig Dispensed Refills Start Date End Date Status Jardiance 10 MG Oral Tablet Take 1 Tablet by mouth in the morning. In the morning.. 0 Active Entresto 24-26 MG Oral Tablet Start: 01/12/23 12:40:00 EDT, 1 tab, PO, bid, Disp# 60 tab, Refills: 3, TAKE 1 TABLET BY MOUTH TWICE A DAY FOR 30 DAYS, Pharmacy: [facility]/pharmacy #[id number] 01/12/2023 4 Active Furosemide 20 MG Oral Tablet (Lasix) Take 1 Tablet by mouth in the morning. In the morning.. 0 02/06/2023 Active Carvedilol 6.25 MG Oral Tablet (Coreg) TAKE 1 TABLET ORALLY TWICE A DAY MUST ADMINISTER WITH A MEAL/FOOD 0 02/04/2023 Active Atorvastatin Calcium 80 MG Oral Tablet (Lipitor) [...] 100 Tablet 3 02/21/2023 Active Atorvastatin Calcium 40 MG Oral Tablet (Lipitor) TAKE 1 TABLET BY MOUTH DAILY EVERY MORNING 0 3 Discontinued Aspirin Low Dose 81 MG Oral Tablet Delayed Release Take 1 Tablet by mouth in the morning. In the morning.. 0 02/04/2023 3 Discontinued documented as of this encounter (statuses as of 02/22/2023) Active Problems Problem Noted Date Diagnosed Date CAD S/P percutaneous coronary angioplasty 2022 documented as of this encounter (statuses as of 02/22/2023) Social History Tobacco Use Types Packs/Day Years [...] on file documented as of this encounter Last Filed Vital Signs Vital Sign Reading Time Taken Comments Blood Pressure 124/87 02/21/2023 1:19 PM EDT Pulse 83 02/21/2023 1:19 PM EDT Temperature 36.1 C (97 F) 02/21/2023 11:49 AM EDT Respiratory Rate 17 02/21/2023 1:19 PM EDT Oxygen Saturation 93% 02/21/2023 1:19 PM EDT Inhaled Oxygen Concentration - - Weight 82.6 kg (182 lb) 02/21/2023 9:27 AM EDT Height 167.6 cm (5' 6") 02/21/2023 9:27 AM EDT Body Mass Index 29.38 02/21/2023 9:27 AM EDT documented in this encounter Discharge Instructions * Discharge Instr - AVS* EMY Craven - 02/21/2023 12:11 PM EDT Discharge Date: 02/21/[address] Barton of the Department of Cardiology at [phone] during business hours for anyquestions or test results. For after-hours emergencies call [phone] and have your doctor paged. Scheduling services is available between the hours of 8:00 am and 9:00 pm by calling . For routine questions, your [facility] Cardiology Team prefers the use of InSite [employer]. InSite Vision is an online internet tool to help you meet your health care needs quickly by providing a secure, confidential way to view your health records and communicate with your [facility] Cardiology Team. To sign up for In[employer] Vision go to [email or web address], "Click" [place] Now on the right side of the screen and complete the user registration information. The information below provides you with the instructions and the list of medications you need to betaking following discharge from the hospital. If you have any questions, please ask before leaving.Please carry this letter with you when you see your doctor in the clinic. If you have questions, you can reach us at the numbers above. Brief summary of your inpatient care: You had a heart catheterization. A coronary artery was openedusing a stent. Two drug stent (s) was placed to the left anterior descending coronary artery. Your primary diagnosis at discharge was hemodynamically significant coronary artery disease Your doctors during this hospitalization included: Dr. Barton of the Department of Cardiology Inpatient test results pending: None Operations & Procedures: cardiac catheterization with PCI Complications: None Advance Directive Documented: Advance Directive Does the Patient have an Advance Directive? Not Addressed Diet: Heart healthy diet, 2 gram sodium diet Activity: no strenuous activity for 24 hours Driving: You may resume driving on 02/23/2023 . Date you may return to work or school: 02/24/2023. Laboratory tests: None Please keep your scheduled follow up appointment with [facility] Cardiology (Harry QUEVEDO) [facility]. A referral was made to help you establish care with a primary care physician of your choice. Special Instructions: - Plavix (clopidogrel) - This drug is most important for stent patients. It keeps the stent from blocking up by preventing blood clots from forming within the stent. When blood clots form, they blockthe stent and cause a heart attack. You should remain on Plavix until directed to stop. Please callyour systems test analyst before stopping Plavix for any reason. FAILURE TO TAKE PLAVIX DAILY DIRECTED MAY RESULT IN HEART ATTACK OR ! - Aspirin - You need to take aspirin even though you are on Plavix. The preferred dose of aspirin is 81 mg per day (one baby aspirin). Use the non- coated kind. You should continue to take aspirin forever unless specifically told to stop. - Statin Drugs (cholesterol pill) slow the growth of heart artery blockages. Your statin drug is atorvastatin. The dose has been increased. - Nitroglycerin (nitro): Your should carry nitro at all times. When chest pain occurs take one nitro under tongue and call 911. You may take additional nitro every five minutes as needed for ongoing chest pain up to three pills. Lie down after using nitro. Do not drive after using nitro. Patients with chronic stable chest pain who frequently use nitro may not need to call 911. Ask your physician about this. - Beta blockers are important for some cardiac patients and after a heart attack. Your beta blockeris carvedilol. - Do not use Motrin/Ibuprofen/Advil and other types of "NSAIDs" (nonsteroidal anti-inflammatory drugs) - "NSAIDs" make aspirin ineffective, can raise blood pressure, and can damage your kidneys. Try Tylenol for pain. Consult your pharmacist for questions about "NSAIDs". Radial Artery Instructions for Post-Catheterization Care: Activity: Do not use the arm we used for your procedure today. Do not lift more than 10 lbs for 3 days with the arm used for your procedure. A responsible adult must be with the patient for at least 24 hours after your procedure. Rest todaybut you may gradually resume your usual activity tomorrow. Do not drive, operate any appliances and/or machinery or sign legal documents for at least 24 hours due to the anesthesia. You may wash the wrist with soap and water and you may shower. Do not soak the wrist in water without a waterproof bandage until the small incision is healed. If you notice bleeding, increased swelling, tingling in the fingers or pain in your forearm that isnot relieved by Tylenol, please seek medical attention. If you develop a fever over 101 degrees F you should contact your systems test analyst. It is normal to have a small amount of discomfort for up to one week following your procedure but this should continue to improve with time, and not worsen. If you have any questions or are concerned with how your arm is healing, call the doctor who did your procedure at . Keep the puncture site covered with a dry bandage for 24 hours, then remove the bandage. You shouldreplace it every 24 hours or if it gets wet. This should be done until the puncture site has completely healed. Cardiovascular RISK FACTOR control YOUR RISK FACTOR TREATMENT GOALS: Controlling the factors that cause arteries to form blockages will reduce your chance of having new blockages. Work with your health care providers to control your risk factors. If you have trouble reaching these goals then ask your health care provider to work with you further until they are controlled. Diabetes - In diabetics, hemoglobin A1C is a measure of the average blood sugar over the past 3 months. The goal is less than 7.0%. Hypertension - Goal is less than 120/80. High cholesterol LDL cholesterol (bad cholesterol) - goal is less than 70 mg/dl. HDL cholesterol (good cholesterol) - goal is greater than 40 mg/dl in men and 50 mg/dl in women. Triglycerides (other blood fats that are especially elevated in diabetics and pre-diabetics) - goalis less than 150 mg/dl. Tobacco - Tobacco is poison to your arteries. It will cause blockages. Continuing to smoke tobacco may lead to heart attacks, strokes, or leg amputation. You should avoid tobacco. Your goal is to notsmoke at all. Talk with your primary care provider about counseling and medications to help you stop smoking. Exercise - The [place] [employer] recommends walking 30 minutes a day most days of the week; if you have to lose weight you should walk 60-90 minutes a day. Remember that if you develop chestpain, you should stop what you are doing. Do not continue to exercise if you have chest pain. See your special activity instructions above. Humphrey weight - Your BMI (a measure of ideal body weight) is Body mass index is 29.38 kg/m.. Your BMI should be less than 25. Your waist size also predicts risk of heart attack: a woman's waist should be less than 35 inches and a man's waist less than 40. Maintaining your ideal body weight will help your heart, reduce blood pressure, blood sugar, and cholesterol, improve or help prevent diabetes, and improve or help prevent congestive heart failure. documented in this encounter Progress Notes * Roel Barton, - 02/21/2023 4:26 PM EDT Patient doing well post PCI. Right radial band removed. Cath site looks good - no hematoma. He feels well. No chest pain or dyspnea. Reviewed cath site care instructions and Dual antiplatelet therapy (DAPT) instructions. Okay for d/c home today documented in this encounter H&P Notes * Roel Barton DO - 02/21/2023 9:31 AM EDT HISTORY & PHYSICAL INTERVAL NOTE - Cardiology Service [address] [address] History and Physical Update: Name: Jason Reyez Location: CATH/Cath Date: 02/21/2023 Time: 9:31 AM DATE OF HISTORY AND PHYSICAL: 02/13/2023 REFERRED BY: EMY Veliz Chief Complaint: Cardiomyopathy I have reviewed the H&P previously performed and examined the patient today. There are no new findings noted. Physical Examination: BP: 138 mmHg/92 mmHg (02/21/23914) Pulse: 66 (02/21/23914) Temp: 36.72 C (02/21/23914) Resp: 19 (02/21/23914) SpO2: 95 % (02/21/23914) Cardiac: RRR. No murmur, gallop or rub appreciated Lungs: CTAB Right Radial pulse 2+ Allens test (right hand): delayed rubor Right Femoral pulse 2+ Right Femoral Bruit no Right PT pulse 2+ IV Contrast Allergy: no Contraindications to dual anti-platelet therapy: No History of anemia: No ASA: 81 mg of ASA given today Anticoagulation: No Labs reviewed as indicated below: Hgb: 16.7 GFR / sCr: Result pending Pre-Cath Labs: Pending as above INFORMED CONSENT FOR CARDIAC CATH AND INTERVENTIONAL PROCEDURES: I discussed with patient the alternatives to cardiac cath including medical therapy and if appropriate exercise testing. I discussed the risks of cath including 06/999 , KS, CVA and 2/100 risk of allergic reaction, bleeding, infection, arrhythmia requiring shock, damage to artery requiring surgery or amputation, radiation skin jacob. I discussed technique of catheterization. The patient indicated understanding and a preference for proceeding with catheterization considering these factors. I discussed with the patient coronary intervention and alternatives including bypass surgery and medical therapy. I discussed the risks of intervention including 5-10% risk of KS, 5% risk of bleeding possibly requiring transfusion, 1% risk of , 1% risk of emergency CABG, and 20- 30% risk of restenosis, and the chance that even a successful procedure will not relieve symptoms if they are not due to cardiac ischemia. The patient would like to have ad hoc intervention done at the time of the ca theterization if it seems appropriate. * EMY Craven - 02/20/2023 7:20 AM EDT Images from the original note were not included. Cardiology H&P The note below has been copied and pasted from an office visit with EMY Veliz on 02/13/2023. Jason Reyez is a 47 year old male in clinic today for evaluation of cardiac cath referral. He has no one accompanying him for today's visit. Patient reports that in June he presented to [facility] because he noticed changesin his speech and balance. He was diagnosed with CVA. At that admission, he had a CTA which showed moderate to severe multivessel coronary disease. Also, he had an echocardiogram which showed severely reduced LVEF: <15%. He was started on GDMT for systolic heart failure with carvedilol 6.25mg, Jardiance 10mg, Entresto 24/26mg and Lasix 20mg. Patient reports that he has been feeling "pretty good" Reports that prior to his CVA, he was havingsome chest discomfort but also had pneumonia and was attributing it to that. Reports that he has energy and is working 40 hours a week without any cardiac symptoms. Today patient denies chest pain/ chest pressure. Denies dizziness, lightheadedness, palpitations, shortness of breath or syncope. Reports that he used to drink daily for over 25 years; more than 10 drinks a day. Reports that he has not consumed any alcohol for over 4 months. Cardiac history is significant for: (-) Diabetes Mellitus (+) Hypertension (+) Dyslipidemia (+) Smoking- 1 ppd day (-) Carotid disease (-) Peripheral vascular disease (-) Renal disease (+) Family history of premature CAD Uses Marijuana Daily (+) Stroke Cardiac Symptoms Chest discomfort: denies Dyspnea of exertion: denies Dyspnea at rest: denies Orthopnea: denies Edema: denies Palpitations: denies Syncope/ Near Syncope: denies Interim History: BP Readings from Last 4 Encounters: 10/18/18 140/94 . Wt Readings from Last 4 Encounters: 10/18/18 91.4 kg (201 lb 9.6 oz) Current Outpatient Medications Aspirin Low Dose 81 MG Oral Tablet Delayed Release Atorvastatin Calcium 40 MG Oral Tablet (Lipitor) Carvedilol 6.25 MG Oral Tablet (Coreg) Entresto 24-26 MG Oral Tablet Furosemide 20 MG Oral Tablet (Lasix) Jardiance 10 MG Oral Tablet No current facility-administered medications for this visit. Nitroglycerin (Nitrostat) sl tab 0.4 mg Review of patient's allergies indicates: No Known Allergies No past medical history on file. No past surgical history on file. No family history on file. Social History Tobacco Use Smoking status: Every Day Smokeless tobacco: Never Substance Use Topics Alcohol use: Yes Comment: occ Drug use: Never Review of Systems Constitutional: Negative. HENT: Negative. Eyes: Negative. Cardiovascular: Negative. Respiratory: Negative. Endocrine: Negative. Hematologic/Lymphatic: Negative. Skin: Negative. Musculoskeletal: Negative. Gastrointestinal: Negative. Genitourinary: Negative. Neurological: Negative. Psychiatric/Behavioral: Negative. Allergic/Immunologic: Negative. Labwork Physical Examination: Today's vital signs: BP 120/76 | Pulse 80 | Ht 1.676 m (5' 6") | Wt 83.2 kg (183 lb 8 oz) | SpO2 97% | BMI 29.62 kg/m | BSA 1.97 m Physical Exam Constitutional: Well developed. No acute distress HEENT: unremarkable Neck: Supple, no JVD. Cardiac: Regular rate and rhythm. Normal S1 and S2. Pulmonary: Lungs sounds clear to ascultation. Respirations unlabored. Neurological: AAOx4 Abdomen: soft, nontender, positive bowel sounds Extremities: No edema Skin: warm, dry and intact Impression and Plan: ( Discussed with Dr. Barton) (I10) HTN, goal below 130/80 Plan: Continue Carvedilol (I50.22) Chronic HFrEF (heart failure with reduced ejection fraction) (HCC) Plan: Patient is on GDMT with carvedilol 6.25mg, Jardiance 10mg, Entresto 24/26mg and Lasix 20mg. (I67.2, Z86.73) Cerebrovascular disease, arteriosclerotic, post-stroke Plan: Mr. Reyez is a 47 year old male who was referred by Dr. Ambrose for a cardiac catheterization after recent CTA findings concerning for multivessel disease and reduced EF <15%. Patient is continuing his current medication regimen. Reports no cardiac symptoms. Will schedule a cath to assess for ischemia. Cardiac catheterization was ordered for Jason Reyez. It has been scheduled at 0900AM on Sunday with Dr. Barton. The medications were reviewed and the patient was instructed to take ASA 81mg on the am prior to the procedure. The patient is to be NPO after midnight before the procedure. They are to hold Furosemide (Lasix) the morning of the procedure. The patient is to take their other medications on the morning of the procedure with a sip of water. Patient is not on insulin or metformin. The patient has depressed GFR and mucomyst has been prescribed to take it every 12 hours the day before and the morning of and the evening after the procedure. The patient was instructed regarding arrival time and directions were given for them to arrive at 0900AM . The patient voices an understanding of these instructions. I spent a total of 40-54 minutes (exact time 50 mins) on the date of service in preparation, delivery, and documentation of the care provided to Jason Reyez excluding any time spent in the performance of separately billed services. EMY Veliz documented in this encounter Procedure Notes * Roel Barton DO - 02/21/2023 11:54 AM EDTAssociated Order(s): EKG REASON FOR STUDY: POST PCI CONCLUSIONS: Sinus bradycardia with sinus arrhythmia Left posterior fascicular block Inferior infarct (cited on or before 13-FEB-2023) Possible Anterior infarct , age undetermined When compared with ECG of 13-FEB-2023 13:03, Sinus rhythm has replaced Ectopic atrial rhythm Vent. rate has decreased BY 35 BPM Ventricular Rate: 53 Atrial Rate: 53 NV Interval: 168 QRS Duration: 106 QT/QTc: 444/416 ms P-R-T [place]: 13 : 114 : 91 degrees * Roel Barton DO - 02/21/2023 11:41 AM EDT [facility] [address] [place] [address] CARDIAC LAW RESEARCHER BRIEF PROCEDURE NOTE Name: Jason Reyez Date: 02/21/2023 Time: 11:42 AM Location: CARDIAC LABS [facility] Date of Procedure: 02/21/2023 Pre-op Diagnosis: Cardiomyopathy Post-op Diagnosis: Coronary artery disease Procedure: Left heart cath, Coronary angiography, coronary intervention Radiation Monitor: Dr. Barton Needle Punch Machine Operator Helper(s): Dr. Espana Anesthesia: Monitored local anesthesia with sedation Additional Findings: Coronary disease - hemodynamically significant midLAD 80% occulsion s/p PCI with 2 overlapping synergy ANGELITA ([id number] and 2.5mm x12mm). Post dilated in the overlapping area with NC balloon 2.75mm x8mm at 20atm. Post intervention stenosis was 0%with CAROLE III flow. There was a good step-up, step-down and no evidence of dissection or perforation. Excellent grade 3 L->R collaterals. MidRCA small vessel with diffuse disease, up to 90%, likely too small to stent LVEDP is 3 mmHg R radial access Complications: none Condition of patient: Good Recommendations: continue DAPT for 1 year. Follow up with outpatient cardiology. I have discussed the patient's management with the medical trainee and agree with the note. Please refer to the documented findings and plan of care. This patient's visit today consisted of a procedure. I was present for the entire procedure. As required by [place] Act 112, the Patient Test Result Information Act, I have discussed withthe patient the significant findings from the diagnostic imaging service performed today. They haveexpressed their understanding and signed the acknowledgement form. Roel Barton DO documented in this encounter Consult Notes * Stanley Mejia RPh - 02/21/2023 1:44 PM EDTAssociated Order(s): PHARMACY CONSULT IP PHARMACY MEDICATION TEACHING CONSULT ANTIPLATELET THERAPY [address] [address] Name: Jason Reyez Location: [facility] Date: 02/21/2023 Time: 1:44 PM Requesting Service: cardiology Patient Active Problem List Diagnosis Code CAD S/P percutaneous coronary angioplasty I25.10, Z98.61 Medication covered during teaching session: Clopidogrel Indication for Antiplatelet Therapy: Stent Duration of Antiplatelet Therapy: 1 year Teaching points covered with patient and/or family: Route, Dosage Form and Schedule, Medication Intended Use/Action, Precautions to be Observed while using this Medication, Commonly Encountered Adverse Effects, Methods for Self- monitoring, Laboratory Monitoring, Potential Food and Drug Interactions, Therapeutic Contraindications, Prescription Refill Information, Action for a Missed Dose, and Patient Specific Information Written documentation regarding all of the teaching points was provided to the patient and/or family members present. accepted patient education handout. Outpatient antiplatelet medication supply: Patient requires a prescription for this antiplatelet medication: Patient prefers to have the prescription sent to his/her preferred pharmacy. Assessment of teaching effectiveness: reviewed medications with patient, he participated in discussion, all questions were answered Has the patient expressed potential cost concerns? No Length of teaching: Brief (less than 15 minutes) Teaching completed according to pharmacy teaching standard 508. documented in this encounter Miscellaneous Notes * Ancillary Progress Note - RT Henna - 02/21/2023 3:43 PM EDT [facility] [place] [address] Ancillary Progress Note Patient Name: Jason Reyez Date: 02/21/2023 Patient will be escorted to Cardiac Recovery Suite. We performed a stent procedure on this patient.We placed 2 stents in the LAD. The right radial artery was used for access with a 6 Cam[place]onian sheath. A Radial Band was applied at 10 mL. of air to close the site. There is no hematoma and no ooze from the cath site noted. No sterile dressing applied to site. Radial band applied. Distal pulses were palpated and instructions to patient were given. There were no complications during the case. Please see the MAR for the medications that were given. See Cath Procedure Log for patient vitals during thecase. * Pt Handout (on AVS) - Brigitte Bennett RN - 02/21/2023 3:03 PM EDT Images from the original note were not included. [address] Understanding Coronary Artery Disease (CAD) Your heart is a muscle. To work right, this muscle needs a steady supply of oxygen. The coronary arteries are blood vessels that send oxygen-rich blood to the heart muscle. Coronary artery disease (CAD) is when there?s a problem in these blood vessels. Healthy artery. A healthy coronary artery has no blockages. Blood easily flows through it. Healthy arteries can supply all the oxygen-rich blood your heart muscle needs. Healthy artery. Damaged artery. Some things can damage the lining of an artery. These include smoking, high blood pressure, and high blood sugar. CAD starts when this damage leads to the buildup of plaque along the artery wall. Plaque is a substance made of cholesterol and other fatty deposits. Plaque narrows the arteries that send blood to your heart muscle. This is called atherosclerosis. Damaged artery. Narrowed artery. As more plaque builds up, an artery has trouble sending blood to your heart musclewhen it's needed the most, such as during exercise. You may not feel any symptoms when this happens. Or you may feel pressure, tightness, aching, or pain in your chest, jaw, neck, back, or arm. This is called angina. Narrowed artery. Blocked artery. A piece of plaque can break off. This is called ruptured plaque. It can fully blockthe artery. But more often, a blood clot forms on a piece of ruptured plaque. Together these block the narrowed artery. Then blood can't reach the heart muscle. Right away, part of the heart muscle becomes damaged and stops working. You may feel crushing pressure or pain in or around your chest. This is a heart attack (acute myocardial infarction). It?s a medical emergency. Blocked artery. Last Reviewed Date: 05/31/202119992643-1848 [employer]. All rights reserved. This information is not intended as a substitute for professional medical care. Always follow your healthcare professional's instructions. * Pt Handout (on AVS) - Brigitte Bennett RN - 02/21/2023 3:03 PM EDT Images from the original note were not included. [id number] Eating Heart-Healthy Foods Eating has a big impact on your heart health. In fact, eating healthier can improve several of yourheart risks at once. For instance, it helps you manage weight, cholesterol, and blood pressure. Here are ideas to help you make heart- healthy changes without giving up all the foods and flavors you love. Getting started Talk with your healthcare provider about eating plans, such as the DASH or Mediterranean diet. You may also be referred to a dietitian. Ask a partner, family member, or friend to join you for mutual support. Change a few things at a time. Give yourself time to get used to a few eating changes before adding more. Work to create a tasty, healthy eating plan that you can stick to for the rest of your life. Goals for healthy eating Below are some tips to improve your eating habits: Limit saturated fats and trans fats. Saturated fats raise your levels of cholesterol, so keep these fats to a minimum. They are found in foods such as fatty meats, whole milk, cheese, and palm andcoconut oils. Avoid trans fats because they lower good cholesterol as well as raise bad cholesterol. Trans fats are most often found in processed foods, such as pastries, cookies, pies, muffins, fried foods, stick margarines, and shortening. Reduce how much sodium (salt) you have. Eating too much salt may increase your blood pressure. Limit your sodium intake to 2,300 milligrams (mg) per day (the amount in 1 teaspoon of salt), or lessif your healthcare provider recommends it. Dining out less often and eating fewer processed foods are two great ways to decrease the amount of salt you consume. At home, flavor your foods with other spices and herbs instead of salt. Managing calories. A calorie is a unit of energy. Your body jacob calories for fuel, but if you eat more calories than your body jacob, the extras are stored as fat. Your healthcare provider or dietitian can help you create a diet plan to manage your calories. This will likely include eating healthier foods and getting regular exercise. To help you track your progress, keep a food diary to record what you eat and how often you exercise. Choose the right foods Aim to make these foods vicky of your diet. If you have diabetes, you may have different recommendations than what is listed here: Fruits and vegetables provide plenty of nutrients without a lot of calories. At meals, fill halfyour plate with these foods. Choose between fresh, frozen, canned, or dried fruits and vegetables without added sauces, salt, or sugars. Split the other half of your plate between whole grains and lean protein. Whole grains are high in fiber and rich in vitamins and nutrients. Good choices include whole-wheat bread, pasta, oats, and brown rice. Make at least half of your grains whole grains. Lean proteins give you nutrition with less fat. Good choices include fish, skinless chicken and turkey, and beans. Draining the fat from cooked ground meat is another way to reduce the amount of fat you eat. Low-fat and nonfat dairy provide nutrients without a lot of fat. Try low-fat or nonfat milk, cheese, or yogurt. Healthy fats can be good for you in small amounts. These are unsaturated fats, such as olive oil, avocado, nuts, and fish. Try to have at least 2 servings per week of fatty fish, such as salmon, sardines, mackerel, rainbow trout, and albacore tuna. These contain omega-3 fatty acids, which are good for your heart. Flaxseed and walnuts are other sources of heart-healthy fats. More on heart-healthy eating Read food labels Healthy eating starts at the grocery store. Be sure to pay attention to food labels on packaged foods. Look for products that are high in fiber and protein and low in saturated fat, added sugars, andsodium. Avoid products that contain trans fat. And pay close attention to serving size. For instance, if you plan to eat 2 servings, double all the numbers on the label. Prepare food right A martinez part of healthy cooking is cutting down on added fat, sugar, and salt. Look on the Internet for lower-fat, lower-sodium recipes without a lot of added sugars. Also try these tips: Remove fat from meat and skin from poultry before cooking. Skim fat from the surface of soups and sauces. Broil, roast, boil, bake, steam, grill, or microwave food without added fats. Choose ingredients that spice up your food without adding calories, fat, sugar, or sodium. Try these items: horseradish, hot sauce, lemon zest and juice, garlic, onion, mustard, nonfat salad dressings, and vinegar. Small amounts of olive oil-based vinaigrettes are OK, too. For salt-free herbs and spices, try basil, cilantro, cinnamon, cumin, paprika, pepper, and alexandr. Last Reviewed Date: 03/30/202219993246-6700 The [employer]. All rights reserved. This information is not intended as a substitute for professional medical care. Always follow your healthcare professional's instructions. * Progress Notes - Non-Billable - Fani Espana MD - 02/20/2023 8:22 PM EDT PROGRESS NOTE - Interventional Cardiology [facility] [place]-[address] [address] Name: Jason Ballard Dereje Date: 02/20/2023 Time: 8:22 PM Name: Jason Reyez Referring Provider: Harry Mendoza [facility]: [id number] Referring Silverlight Developer: same as above Procedure Requested: Left heart cath, Coronary angiography Indication for Cath: Suspected CAD and Cardiomyopathy Medical History Medication List (-) DM, if yes, what meds: - Prior to Admission medications Medication Sig Last Dose Discont. Aspirin Low Dose 81 MG Oral Tablet Delayed Release Take 1 Tablet by mouth in the morning. In the morning.. Atorvastatin Calcium 40 MG Oral Tablet (Lipitor) TAKE 1 TABLET BY MOUTH DAILY EVERY MORNING Carvedilol 6.25 MG Oral Tablet (Coreg) TAKE 1 TABLET ORALLY TWICE A DAY MUST ADMINISTER WITH A MEAL/FOOD Entresto 24-26 MG Oral Tablet Start: 01/12/23 12:40:00 EDT, 1 tab, PO, bid, Disp# 60 tab, Refills: 3, TAKE 1 TABLET BY MOUTH TWICE A DAY FOR 30 DAYS, Pharmacy: [facility]/pharmacy #[id number] Furosemide 20 MG Oral Tablet (Lasix) Take 1 Tablet by mouth in the morning. In the morning.. Jardiance 10 MG Oral Tablet Take 1 Tablet by mouth in the morning. In the morning.. (+) HTN (-) Prior CHF in last 2 weeks, NYHA Class: 0 (-) PVD (-) Dialysis (-) Smoked in the past year (+) HLD (+) Family heart disease (male<55, female<65) (-) Prior KS (-) Prior PCI, if yes, when: - (-) Valve Surgery (-) CABG, if yes, when - (+) Stroke/TIA (-) COPD/Emphysema (+) ASA in the last 24 hours (-) P2Y12 inhibitor or alternative antiplatelet, if yes, what med: - (-) Anticoagulation, if yes, what med: - (-) History of HIT (-) Allergic to Dye, if yes, were they prepped: - Review of patient's allergies indicates: No Known Allergies CSHA Frailty Score: 3 Very Fit - 1 Well - 2 Managing Well - 3 Vulnerable - 4 Mildly Frail - 5 Moderately Frail - 6 Severely Frail - 7 Very Severely Frail - 8 Terminally Ill - 9 Current Presentation Admission Date: (Not on file) - | Admission Time: - CAD Presentation: (None, Unlikely to be ischemic, Stable, Unstable): stable Anginal Class: 0 Anti-Anginals in the last 2 weeks: + Beta Blockers | - Calcium Channel | - Long Acting Nitrates LV Dysfunction/ Cardiomyopathy: Yes EF in last 6 months: 15% % Stress Test (Last 6 months): no | Type of stress test: - Result (No test, Low Risk, Intermediate Risk, High Risk, Negative, Indeterminate): - Labs Last Creatinine: Lab Results Component Value Date/Time CREATININE - TRACYER 1.2 11/28/2022 12:10 PM Last GFR: No components found for: "E GLOM FILT RATE" Last INR: No results found for: "INR" Last Hb/Hct: No results found for: "HGB" No results found for: "HCT" Misc. Notes 47 year old male with pertinent PMHx of HTN, HLD, FH of premature CAD who presents with new low EF after he was found to have a stroke as well as moderate to severe coronary artery disease on CTA. Coronary angiography scheduled for further evaluation. No dye allergy. Recent Cr 1.2: 11/28/22 TTE from [facility] shows EF <15% documented in this encounter Plan of Treatment Upcoming Encounters Date Type Department Care Team (Late st Contact Info) Description 05/16/2023 1:40 PM EST Office Visit Cardiology [facility] [address] [place] [address] Harry Mendoza CRNP [address] [place] [address] Scheduled Orders Name Type Priority Associated Diagnoses Orde r Schedule CARDIAC REHAB W/ECG MONITORING Procedures Routine S/P PTCA (percutaneous transluminal coronary angioplasty) Ordered: 02/21/2023 Scheduled Referrals Name Type Priority Associated Diagnoses Orde r Schedule CARDIAC REHAB REFERRAL OP Referral Within 10 days (routine) S/P PTCA (percutaneous transluminal coronary angioplasty) Ordered: 02/21/2023 FAMILY PRACTICE REFERRAL OP Referral Within 30 days (routine) Status post cardiac catheterization CAD S/P percutaneous coronary angioplasty Ordered: 02/21/2023 Health Maintenance Due Date Last Done Comments DISCUSS TOBACCO CESSATION (REFER TO [employer]ARTSET #[id number]) 1975 Hepatitis B (1 of 3 - [...] this encounter Medical Devices Implanted Type Area Forest Science Professor Device Identifier Shelf Expiration Date Model / Serial / Lot Stent Synergy Xd Mr [id number] - [id number] Implanted:Qty: 1 on 02/21/2023 by Roel Barton DO at CARDIAC LABS [facility] hereO [id number] 11/29/2023 [id number] / / [id number] documented as of this encounter Procedures Procedure Name Priority Date/Time Associated Diagnosis Comments HC ECG TRACING ONLY Routine 02/21/2023 1 1:54 AM EDT Status post cardiac catheterization ACT, POINT OF CARE MIL 02/21/2023 11 :22 AM EDT RENAL FUNCTION PANEL STAT 02/21/2023 9:24 AM EDT CBC STAT 02/21/2023 9:24 AM EDT CARDIAC CATHETERIZATION REPORT Routine 02/21/2023 documented in this encounter Results * EKG (02/21/2023 11:54 AM EDT) 02/21/2023 11:5 4 AM EDT Narrative Procedure Note Roel Barton DO - 02/21/2023 11:54 AM EDT REASON FOR STUDY: POST PCI CONCLUSIONS: Sinus bradycardia with sinus arrhythmia Left posterior fascicular block Inferior infarct (cited on or before 13-FEB-2023) Possible Anterior infarct , age undetermined When compared with ECG of 13-FEB-2023 13:03, Sinus rhythm has replaced Ectopic atrial rhythm Vent. rate has decreased BY 35 BPM Ventricular Rate: 53 Atrial Rate: 53 NV Interval: 168 QRS Duration: 106 QT/QTc: 444/416 ms P-R-T [place]: 13 : 114 : 91 degrees Fani Espana MD EKG Performing Organization Address City/[facility]/ZIP Co de Phone Number [facility] * ACT, POINT OF CARE (02/21/2023 11:22 AM EDT) Pathologist [facility] ACT [phone] - 1,000 secs 02/21/2023 11:54 AM EDT [facility] Blood 02/21/2023 11:2 2 AM EDT 02/21/2023 11:54 AM EDT Narrative [facility] [place] [facility] - 02/21/2023 11:54 AM EDT NORMAL (NON-HEPARINIZED) 74-137 SECONDS HEPARINIZED 200+ SECONDS CRITICAL GREATER THAN 1000 SECONDS Roel Barton DO LAB POINT OF CARE TEST DOCKED DEVICE UNSOLICITED RESULTS [facility] [address] [place] [address] * RENAL FUNCTION PANEL (02/21/2023 9:24 AM EDT) BUN 14 6 - 20 mg/dL 02/21/2023 9:55 AM EDT LAB[facility]ATORY [facility] Creatinine 0.9 0.6 - 1.2 mg/dL 02/21/2023 9:55 AM EDT [facility] Estimated Glomerular Filtration Rate >90 >=60 mL/min 02/21/2023 9:55 AM EDT [facility] Comment:eGFR is calculated b ased on the CKD-EPI 2020 equation Sodium 138 135 - 146 mmol/L 02/21/2023 9:55 AM EDT [facility] Potassium 3.9 3.5 - 5.1 mmol/L 02/21/2023 9:55 AM EDT [facility] Chloride 101 98 - 107 mmol/L 02/21/2023 9:55 AM EDT [facility] CO2 26 22 - 32 mmol/L 02/21/2023 9:55 AM EDT [facility] Anion Gap 11 7 - 15 mmol/L 02/21/2023 9:55 AM EDT [facility] Glucose 108 70 - 120 mg/dL 02/21/2023 9:55 AM EDT [facility] Calcium 9.7 8.4 - 10.2 mg/dL 02/21/2023 9:55 AM EDT [facility] Albumin 4.7 3.8 - 5.0 g/dL 02/21/2023 9:55 AM EDT [facility] Phosphorus 3.5 2.5 - 4.8 mg/dL 02/21/2023 9:55 AM EDT [facility] Blood Venous blood specimen / Unknown Venipuncture / Unknown 02/21/2023 9:24 AM EDT 02/21/2023 9:31 AM EDT Lee Umanzor OUTREACH PROFESSIONAL LAB BLOOD ORDERABLE S LABORATORY [facility] [address] [place] [address] * (ABNORMAL) CBC (02/21/2023 9:24 AM EDT) WBC 12.36(H) 4.00 - 10.80 K/uL 02/21/2023 9:43 AM EDT LAB[facility] RBC 5.21 4.50 - 5.25 M/uL 02/21/2023 9:43 AM EDT [facility] HGB 16.7 14.0 - 16.8 g/dL 02/21/2023 9:43 AM EDT [facility] HCT 49.8(H) 40.0 - 48.4 % 02/21/2023 9:43 AM EDT [facility] MCV 95.6 82.0 - 99.5 fL 02/21/2023 9:43 AM EDT [facility] MCH 32.1 27.0 - 34.0 pg 02/21/2023 9:43 AM EDT [facility] MCHC 33.5 32.0 - 36.0 g/dL 02/21/2023 9:43 AM EDT [facility] RDW 13.0 11.5 - 15.5 % 02/21/2023 9:43 AM EDT [facility] PLT 187 140 - 400 K/uL 02/21/2023 9:43 AM EDT [facility] MPV 10.7 6.6 - 11.1 fL 02/21/2023 9:43 AM EDT LAB[facility] nRBCs 0 <=0 /100 WBCs 02/21/2023 9:43 AM EDT [facility] Blood Venous blood specimen / Unknown Venipuncture / Unknown 02/21/2023 9:24 AM EDT 02/21/2023 9:31 AM EDT Lee Umanzor OUTREACH PROFESSIONAL LAB BLOOD ORDERABLE S LABORATORY [facility] [address] [place] [address] * CARDIAC CATHETERIZATION REPORT (02/21/2023) DATE OF PROCEDURE 02/21/2023 [facility] DIAGNOSTIC Roel Poe DO [facility] INTERVENTIONAL Roel Poe DO [facility] CONCLUSIONS * Severe 2 vessel CAD: mid LAD 80% stenosis and diffuse RCA disease up to 90% with competitive flow seen distally from good [id number] collaterals from the LAD septal perforators. Mild luminal irregularities in co-dominant Circumflex system. * s/p successful PCI with placement of 2 overlapping ANGELITA to mid LAD (2.75x12 and 2.5x12mm Synergy ANGELITA); post-dilated both stents with 2.75mm NC balloon reducing stenosis to 0% wtih CAROLE 3 flow. * LVEDP 3 mmHg (low) [facility]ED[facility] Left Heart Cath + Coronary angiography ANGELITA Stenting [facility] TOTAL CONTRAST VOLUME 95 ml [facility] TOTAL RADIATION 0.25 Gy [facility] COMPLICATIONS No complication None [facility] 02/21/2023 02/21/2023 4:4 6 PM EDT Harry QUEVEDO CARD CATH [facility] documented in this encounter Visit Diagnoses Diagnosis CAD S/P percutaneous coronary angioplasty- Primary Coronary atherosclerosis of [place] coronary artery S/P PTCA (percutaneous transluminal coronary angioplasty) Postsurgical percutaneous transluminal coronary angioplasty status Status post cardiac catheterization Other postprocedural status Chest pain Chest pain, unspecified CAD S/P percutaneous coronary angioplasty Coronary atherosclerosis of [place] coronary artery documented in this encounter Administered Medications Inactive Administered Medications - up to 3 most recent administrations Medication Order MAR Action Action Date Dose Rate Site clopidogrel (pLAVix) tab 600 mg 600 mg, Oral, ONCE, On Sun02/21/23 at 1200, For 1 dose, Intra-Op Given 02/21/2023 11:15 AM EDT 600 mg fentaNYL (PF) inj 50 mcg 50 mcg, IV Push, PRN Pain, Severe, Starting on Sun02/21/23 at 1035, Until Sun02/21/23 at 1148, For 2 hours, To be administered in Cardiac Overnight Cashier intra-procedure only When given IV Push its recommended that the dose be given over 3 to 5 minutes., Intra-Op Given 02/21/2023 11:35 AM EDT 25 mcg Given 02/21/2023 11:30 AM EDT 25 mcg Given 02/21/2023 10:41 AM EDT 50 mcg hEParin inj 5,000 Units 5,000 Units, IV Push, PRN Other, Anticoagulation not at goal, Starting on Sun02/21/23 at 1035, Until Sun02/21/23 at 1148, For 2 hours, To be administered in Cardiac Overnight Cashier intra-procedure., Intra-Op Given 02/21/2023 11:15 AM EDT 5,000 Units Given 02/21/2023 11:02 AM EDT 5,000 Units midazolam (Versed) 2 MG/2ML inj 1 mg 1 mg, IV Push, PRN Anxiety, Starting on Sun02/21/23 at 1035, Until Sun02/21/23 at 1148, For 2 hours, To be administered in Cardiac Overnight Cashier intra-procedure only, Intra-Op Given 02/21/2023 10:56 AM EDT 1 m g Given 02/21/2023 10:41 AM EDT 1 mg nitroglycerin (100 mcg/mL) inj 200 mcg 200 mcg, Intracoronary, ONCE, On Sun02/21/23 at 1215, For 1 dose, To be administered in Cardiac Overnight Cashier intra-procedure only FOR INTRACORONARY OR INTRA-ARTERIAL ADMINISTRATION, Intra-Op Given 02/21/2023 11:34 AM EDT 200 mcg NSS infusion Intravenous, at 100 mL/hr, CONTINUOUS, Starting on Sun02/21/23 at 0930, Until Sun02/21/23 at 1929, Pre-Op documented in this encounter Active and Recently Administered Medications Times are shown in EDT. Scheduled Medication Order 02/19/2023 02/20/2023 02/21/2023 aspirin chew tab 81 mg 81 mg, Oral, Daily(AM), First dose on Sun02/22/23 at 0900, Until Discontinued atorvaSTATin (Lipitor) tab 80 mg 80 mg, Oral, Q1700, First dose on Sun02/22/23 at 1700, Until Discontinued Carvedilol (Coreg) tab 6.25 mg 6.25 mg, Oral, BID (AM/PM MEALS), First dose on Sun02/21/23 at 1700, Until Discontinued, Hold for HR less than 60 or SBP below 100 and notify service if dose is held MUST BE GIVEN WITH MEAL 1700 (Due) clopidogrel (pLAVix) tab 600 mg (COMPLETED) 600 mg, Oral, ONCE, On Sun02/21/23 at 1200, For 1 dose, Intra-Op 1115 (Given - Provid er: Marine Hamlin RN) clopidogrel (pLAVix) tab 75 mg 75 mg, Oral, Daily(AM), First dose on Sun02/22/23 at 0900, Until Discontinued Empagliflozin (Jardiance) tab 10 mg 10 mg, Oral, Daily(AM), First dose on Sun02/22/23 at 0900, Until Discontinued Furosemide (Lasix) tab 20 mg 20 mg, Oral, Daily(AM), First dose on Sun02/22/23 at 0900, Until Discontinued nitroglycerin (100 mcg/mL) inj 200 mcg (COMPLETED) 200 mcg, Intracoronary, ONCE, On Sun02/21/23 at 1215, For 1 dose, To be administered in Cardiac Overnight Cashier intra-procedure only FOR INTRACORONARY OR INTRA-ARTERIAL ADMINISTRATION, Intra-Op 1134 (Given - Provid er: Marine Hamlin RN - Comment: GIVEN BY DR BARTON) sacubitril-valsartan 24-26 mg per tab (Entresto) tab 1 Tablet 1 Tablet, Oral, BID (.AM/PM), First dose on Sun02/21/23 at 2100, Until Discontinued Continuous Medication Order 02/19/2023 02/20/2023 02/21/2023 NSS infusion Intravenous, at 100 mL/hr, CONTINUOUS, Starting on Sun02/21/23 at 0930, Until Sun02/21/23 at 1929, Pre-Op 0930 (Due) PRN Medication Order 02/19/2023 02/20/2023 02/21/2023 Acetaminophen (Tylenol) tab 650 mg 650 mg, Oral, Q6H PRN Pain, Mild, Pain, Moderate, Starting on Sun02/21/23 at 1155, Until Sun02/21/23 at 2108, Maximum of 4 grams (4000 mg) per day. fentaNYL (PF) inj 50 mcg (CANCELED) 50 mcg, IV Push, PRN Pain, Severe, Starting on Sun02/21/23 at 1035, Until Sun02/21/23 at 1148, For 2 hours, To be administered in Cardiac Overnight Cashier intra-procedure only When given IV Push its recommended that the dose be given over 3 to 5 minutes., Intra-Op 1041 (Given - Provid er: Marine Hamlin RN)1130 (Given - Provider: Marine Hamlin RN)1135 (Given - Provider: Marine Hamlin RN) hEParin inj 5,000 Units (CANCELED) 5,000 Units, IV Push, PRN Other, Anticoagulation not at goal, Starting on Sun02/21/23 at 1035, Until Sun02/21/23 at 1148, For 2 hours, To be administered in Cardiac Overnight Cashier intra-procedure., Intra-Op 1102 (Given - Provid er: Marine Hamlin RN)1115 (Given - Provider: Marine Hamlin RN - Comment: PCI BOLUS DOSE) house antacid (Mi-Acid II) oral susp 30 mL 30 mL, Oral, Q4H PRN Indigestion, Other, dyspepsia, Starting on Sun02/21/23 at 1155, Until Sun02/21/23 at 2108, SHAKE WELL Menthol ([place]) cough drop 1 Lozenge 1 Lozenge, Oral, Q2H PRN Sore throat, Cough, Starting on Sun02/21/23 at 1155, Until Sun02/21/23 at 2108 midazolam (Versed) 2 MG/2ML inj 1 mg (CANCELED) 1 mg, IV Push, PRN Anxiety, Starting on Sun02/21/23 at 1035, Until Sun02/21/23 at 1148, For 2 hours, To be administered in Cardiac Overnight Cashier intra-procedure only, Intra-Op 1041 (Given - Provid er: Marine Hamlin RN)1056 (Given - Provider: Marine Hamlin RN) Nitroglycerin (Nitrostat) sl tab 0.4 mg 0.4 mg, Sublingual, Q5 MIN PRN Pain, Chest, Starting on Sun02/21/23 at 1155, Until Sun02/21/23 at 2108, May give 2x if systolic BP is greater than 100mm Hg. If no relief after second tablet notify the boathouse keeper STAT. May give third tablet if systolic BP greater than 100 while waiting for response. This med should NOT be Crushed or Chewed documented in this encounter Advance Directives Latest [...] the patient have Health Care Power of Senior Product Consultant? No
--- OUTSIDE RECORDS SUMMARY | 2023-07-08 23:09 | External Medical Summary | Summary of Care ---
Author Name Unknown Organization [facility] Address [address] [place] [address] Phone [phone] Care Team Providers Care Jewel Bearing Turner Name Role Phone Unavailable Primary Care Provider Unavailabl e Encounter Details Date Type Department Care Team (Late st Contact Info) Description 03/05/2023 Documentation Cardiac Studies [facility] [address] [place] [address] Marga Chow, MS Allergies No known active allergiesdocumented as of this encounter (statuses as of 03/05/2023) Medications Medication Sig Dispensed Refills Start Date End Date Status Jardiance 10 MG Oral Tablet Take 1 Tablet by mouth in the morning. In the morning.. 0 Active Entresto 24-26 MG Oral Tablet Start: 01/12/23 12:40:00 EDT, 1 tab, PO, bid, Disp# 60 tab, Refills: 3, TAKE 1 TABLET BY MOUTH TWICE A DAY FOR 30 DAYS, Pharmacy: [facility]/pharmacy #[id number] 01/12/2023 05/12/2023 Active Furosemide 20 MG Oral Tablet (Lasix) [...] the morning. 100 Tablet 3 02/21/2023 Active documented as of this encounter (statuses as of 03/05/2023) Active Problems Problem Noted Date Diagnosed Date CAD S/P percutaneous coronary angioplasty 2022 documented as of this encounter (statuses as of 03/05/2023) Social History Tobacco Use Types Packs/Day Years [...] on file documented as of this encounter Progress Notes * Marga Chow MS - 03/05/2023 1:13 PM EST I was unable to speak to Jason Reyez during his recent admission regarding his referral for phase II cardiac rehab. I mailed Jason Reyez a packet of information explaining the program and benefits of participating. The packet also contains instructions on how to enroll in his local hospital should he decide to participate in the future. Marga Chow MS [facility] documented in this encounter Plan of Treatment Upcoming Encounters Date Type Department Care Team (Late st Contact Info) Description 05/16/2023 1:40 PM EST Office Visit Cardiology [facility] [place] [address] [place] [address] Harry Mendoza CRNP [address] [place] [address] Health Maintenance Due Date Last Done Comments [...] this encounter Medical Devices Implanted Type Area Strength And Conditioning Coach Device Identifier Shelf Expiration Date Model / Serial / Lot Stent Synergy Xd Mr [id number] - [id number] Implanted:Qty: 1 on 02/21/2023 by Roel Barton DO at [facility] [employer] [id number] 11/29/2023 [id number] / / [id number] documented as of this encounter Advance Directives [...] the patient have Health Care Power of Electric Motor Control Assembler? No
--- OUTSIDE RECORDS SUMMARY | 2023-07-08 23:09 | External Medical Summary | Summary of Care ---
Author Name Unknown Organization [facility] Address [address] [place] [address] Phone [phone] Care Team Providers Care Supervisor Stave Cutting Name Role Phone Unavailable Primary Care Provider Unavailabl e Reason for Visit * Reason Onset Date Comments Referral 01/10/2023 Referral; EKG or ibrahima Encounter Details Date Type Department Care Team Description 01/10/2023 Telephone Cardiology [facility] [place] [address] [place] [address] Harry Mendoza CRNP [address] [place] [address] Referral (Referral; EKG order) Allergies No known active allergiesdocumented as of this encounter (statuses as of 02/07/2023) Medications Medication Sig Dispensed Refills Start Date End Date Status Metoprolol Tartrate 100 MG Oral Tablet (Lopressor)Indicati ons:Chronic HFrEF (heart failure with reduced ejection fraction) (HCC) One tablet in the evening prior to cardiac CT, and 1 tablet [address] appointment on the day of CT. 2 Tablet 0 12/01/2022 Active documented as of this encounter (statuses as of 02/07/2023) Active Problems No known active problems documented as of this encounter (statuses as of 02/07/2023) Social History Tobacco Use Types Packs/Day Years Used Date Smoking Tobacco: Every Day Smokeless Tobacco: Never Alcohol Use Standard Drinks/Week Comments Yes 0 (1 standard drink = 0.6 oz pur e alcohol) occ Sex Assigned at Date Recorded Not on file documented as of this encounter Miscellaneous Notes * Telephone Encounter - CHAD Paulino - 01/10/2023 4:45 PM EDT Carrie w/ [facility] Cardiology calling to check status of referral. Pt was scheduled for cardiac CT, but was never scheduled w/ microarray specialist for f/u. Per Dr. Ambrose, pt is needing to be evaluated for possible surgical consult for ASCVD. Appt scheduled w/ Harry Mendoza NP, on 02/13, as that was the soonest available at [facility]. I did reach out to Carrie to let her know that I got the pt scheduled. Will route to clinical staff so aware. Pt will arrive 30 mins early for EKG, and I pended the order below. documented in this encounter Plan of Treatment Upcoming Encounters Date Type Specialty Care Team Description 02/13/2023 Cardiac Studies Cardiac Studies [facility] [address] [place] [address] 02/13/2023 Office Visit Cardiology Harry Mendoza CRNP [address] [place] [address] Scheduled Orders Name Type Priority Associated Diagnoses Orde r Schedule EKG EKG Routine ASCVD (arteriosclerotic cardiovascular disease) Expected: 02/08/2023 (Approximate), Expires: 08/09/2023 Health Maintenance Due Date Last Done Comments Hepatitis B (1 of 3 - 3-dose series) 1976 Lipid Panel 1976 COVID-19 Vaccine (#1) 02/28/1977 Pneumococcal Vaccine: Pediat rics (0 to 5 Years) and At-Risk Patients (6 to 64 Years) (1 - PCV) 1982 Depression Screening 1988 HIV Screening 08/29/1991 Hepatitis C Screening 1994 DTaP,Tdap,and Td Vaccines (1 - Tdap) 08/29/1995 Cologuard 2021 Colonoscopy 2021 Colorectal Cancer Screening 2021 Fecal Occult Blood Test 2021 Sigmoidoscopy 2021 Influenza Vaccine (FLU shot) (#1) 2022 GARDASIL-HPV IMMUNIZATION SERIES Aged Out No longer eligible based on patient's age to complete this topic MENINGOCOCCAL (MENACTRA/MENVEO) Aged Out No longer eligible based on patient's age to complete this topic documented as of this encounter Medical Devices Not on filedocumented as of this encounter Visit Diagnoses Diagnosis ASCVD (arteriosclerotic cardiovascular disease)- Primary Unspecified cardiovascular disease documented in this encounter
--- OUTSIDE RECORDS SUMMARY | 2023-07-08 23:09 | External Medical Summary | Continuity of Care Document ---
Author Name Unknown Organization [facility] [id number] [place] [phone] Care Team Providers Care Equipment Maintenance Technician Name Role Phone Barbra Kohli Primary Care Physician [phone] Encounter [facility] [id number] Date(s): 01/10/23 - 01/10/23 [facility] 0 [facility] 207 [facility] [address] [address] [phone] Encounter Diagnosis Heart failure with reduced ejection fraction(Discharge Diagnosis) - 01/10/23 CVA (cerebrovascular accident)(Discharge Diagnosis) - 01/10/23 Tobacco user(Discharge Diagnosis) - 01/10/23 Dental caries(Discharge Diagnosis) - 01/10/23 Discharge Disposition: Home or Self Care Attending Physician: MD Millard Christopher Allergies, Adverse Reactions, Alerts No Known Medication Allergies Assessment and Plan Extracted from: Title:Office Visit Note Author:DO Kohli Pa ige M Date:01/10/23 1.Heart failure with reduc ed ejection fraction Chronic condition, stable Goal:Resolution Data:N/A Plan: Continue home medications (Jardiance, Entresto, Lasix, Carvedilol), encouraged patient to call [facility] to schedule catheterization. Patient states he will reach out if he is having difficulties with scheduling this. Will follow up in 6-8 weeks 2.CVA (cerebrovascular accident) Chronic condition, stable Goal: Prevention of future CVAs Data:N/A Plan: Continue statin, aspirintherapy. Patient completed outpatient PT, follow with neurology outpatient. 3.Tobacco user Chronic condition, stable Goal:Resolution Data:N/A Plan: Again encouraged smoking cessation, discussed how smoking ties to both oral health and cardiac health. Patient states he is not ready to quit at this time. 4.Dental caries Chronic condition exacerbated/progressive/side effects of treatment Goal:Resolution Data:N/A Plan: Encouraged patient to contact a local dentist for evaluation. Discussed importance of oral health in overall health, patient states he will reach out to a dentist. Medications Aspirin Low Dose 81 mg oral delayed release tablet Start: 12/25/22 8:19:00 EDT, 1 tab, PO, Daily, Disp# 30 tab, Refills: 3, TAKE 1 TABLET BY MOUTH EVERY MORNING, Pharmacy: [facility] #[id number] Start Date: 12/25/22 Stop Date: 04/24/23 Status: Ordered atorvastatin 40 mg oral tablet Start: 10/30/22 15:53:00 EDT, 1 tab, PO, Daily, Disp# 30 tab, Refills: 3, TAKE 1 TABLET BY MOUTH EVERY MORNING, Pharmacy: [facility] #[id number] Start Date: 10/30/22 Stop Date: 02/27/23 Status: Ordered carvedilol 6.25 mg oral tablet Start: 07/17/22 20:30:00 EDT, 1 tab, PO, bid, Disp# 60 tab, Refills: 3, TAKE 1 TABLET ORALLY TWICE A DAY MUST ADMINISTER WITH A MEAL/FOOD, Pharmacy: [facility] #[id number] Start Date: 07/17/22 Stop Date: 11/14/22 Status: Ordered Entresto 24 mg-26 mg oral tablet Start: 01/12/23 12:40:00 EDT, 1 tab, PO, bid, Disp# 60 tab, Refills: 3, TAKE 1 TABLET BY MOUTH TWICE A DAY FOR 30 DAYS, Pharmacy: [facility] #[id number] Start Date: 01/12/23 Stop Date: 05/12/23 Status: Ordered furosemide 20 mg oral tablet Start: 07/17/22 20:35:00 EDT, 1 tab, PO, Daily, Disp# 30 tab, Refills: 3, TAKE 1 TABLET BY MOUTH EVERY MORNING, [id number] Start Date: 07/17/22 Stop Date: 11/14/22 Status: Ordered Jardiance 10 mg oral tablet Start: 11/21/22 8:30:00 EDT, 1 tab, PO, qAM, Disp# 30 tab, Refills: 3, TAKE 1 TABLET BY MOUTH DAILY, Note to Pharmacy: If unable to fill for any reason, please contact prescriber at [phone] [facility], Pharmacy: [facility]/pharmacy #[id number] Start Date: 11/21/22 Stop Date: 03/21/23 Status: Ordered Mental Status 01/10/23 Barriers to Learning one year None evide nt Mandatory Health Literacy Documentation Yes Health Literacy Communication Barriers N ever Primary Language Kazakh Problem List Condition Confirmation Course Effective Dates Status Health St atus Informant CVA (cerebrovascular accident) Confirmed Active Hypokalemic periodic paralysis Confirmed Active Heart failure with reduced ejection fraction Confirmed Active Tobacco user Confirmed Active Tobacco use disorder Confirmed Active Diagnosis Diagnosis Type Effective Dates Health Status Cl inical Service Informant Tobacco user Discharge Diagnosis 01/10/23 Heart failure with reduced ejection fraction Discharge Diagnosis 01/10/23 CVA (cerebrovascular accident) Discharge Diagnosis 01/10/23 Dental caries Discharge Diagnosis 01/10/23 Vital Signs Most recent to oldest [Reference Range]: 1 Height 170 cm (01/10/23 7:53 AM) Patient Weight 83.8 kg (01/10/23 7:53 AM) Body Mass Index 29 kg/m2 (01/10/23 7:53 AM) Temperature [36.5-37.9 DegC] 36.8 DegC (01/10/23 7:53 AM) Respiratory Rate 22 br/min (01/10/23 7:53 AM) Blood Pressure 140/90mmHg (01/10/23 7:53 AM) Cuff Pulse Pressure 50 mmHg (01/10/23 7:53 AM) BP Location # 1 Left Arm (01/10/23 7:53 AM) Social History Social History Type Response Smoking Status Current every day he fili smoker Sex Male FCM Outpt Note * MD Valerio, Renzo Castillo: MODIFY MD Luo Mark B: MODIFY Event Display: FCM Outpt Note Authored Date: [id number] Chief Complaint Pt here for f/u. No new concerns. History of Present Illness Maggie is a 47 year-old male who presents today for follow up. He has a history of CVA (June 2022) as well as cardiomyopathy with EF <15%. Heart Failure with Reduced Ejection Fraction (HFrEF) -Initial EF <15% in hospital, "severe biventricular systolic dysfunction" -Following with cardiology outpatient, Dr. Ambrose ([facility]) -Cardiac coronary artery scan at [facility] showed "2 severe blockages of70- 99%" per patient -Has reservations with scheduling catheterization as he has had multiple family members during caths -Also has concern about the possibility of a bypass, would want to to wait until 2023 as he would like to get new insurance that would cover short term disability -States he stopped wearing the LifeVest after a few weeks of use CVA of Right Parietal/Frontal Lobes -Completed outpatient PT -Following with neurology as outpatient -Still has some residual left thumb numbness and left sided facial numbness but no more hand weakness Smoking/Alcohol Use -Stopped drinkingalcohol entirely 90 days ago -Still smoking about 1 pack per day (down from 2pack day) Denies any chest pain/palpitations/shortness of breath at rest or with exertion. Physical Exam Vitals & Measurements T:36.8C RR:22 BP:140/90 SpO2:96% HT:170cm WT:83.8kg WT:83.800kg(Dosing) BMI:29 PHQ2 Data(Data Documented on:01/10/2023 07:51) Emotional health assessment NEGATIVE General:Alert and oriented, No acute distress HEENT: Normocephalic, Nl gross hearing, moist oral mucosa Cardiovascular:Normal rate, Regular rhythm, No murmur, No gallop. No lower extremity edema. Respiratory:Lungs are clear to auscultation, Respirations are non-labored, Breath sounds are equal Integumentary:Warm, Dry, [place]. Psych: Mood-affect congruence. Speech is of normal pace and content Assessment/Plan 1.Heart failure with reduced ejection fraction Chronic condition, stable Goal:Resolution Data:N/A Plan: Continue home medications (Jardiance, Entresto, Lasix, Carvedilol), encouraged patient to call [facility] to schedule catheterization. Patient states he will reach out if he is having difficulties with scheduling this. Will follow up in 6-8 weeks 2.CVA (cerebrovascular accident) Chronic condition, stable Goal: Prevention of future CVAs Data:N/A Plan: Continue statin, aspirintherapy. Patient completed outpatient PT, follow with neurology outpatient. 3.Tobacco user Chronic condition, stable Goal:Resolution Data:N/A Plan: Again encouraged smoking cessation, discussed how smoking ties to both oral health and cardiac health. Patient states he is not ready to quit at this time. 4.Dental caries Chronic condition exacerbated/progressive/side effects of treatment Goal:Resolution Data:N/A Plan: Encouraged patient to contact a local dentist for evaluation. Discussed importance of oral health in overall health, patient states he will reach out to a dentist. Attestation I saw the patient and confirmed the martinez portions of the history and physical exam and agree with the above impression and plan. Problem List/Past Medical History Ongoing CVA (cerebrovascular accident) Heart failure with reduced ejection fraction Hypokalemic periodic paralysis Tobacco use disorder Tobacco user Medications aspirin(Aspirin Low Dose 81 mg oral delayed release tablet), 81 mg= 1 tab, PO, Daily, 3 refills atorvastatin(atorvastatin 40 mg oral tablet), 40 mg= 1 tab, PO, Daily, 3 refills carvedilol(carvedilol 6.25 mg oral tablet), 6.25 mg= 1 tab, PO, bid, 3 refills empagliflozin(Jardiance 10 mg oral tablet), 10 mg= 1 tab, PO, qAM, 3 refills furosemide(furosemide 20 mg oral tablet), 20 mg= 1 tab, PO, Daily, 3 refills sacubitril-valsartan(Entresto 24 mg-26 mg oral tablet), 1 tab, PO, bid, 3 refills Allergies No Known Medication Allergies Social History Smoking Status Current every day heavy smoker Recommendations Health Maintenance Pending(in the next year) OverDue Adult Influenza Vaccine due10/28/22and every 1year Due Adult COVID-19 Vaccination due01/10/23Unknown Frequency Adult Tdap/Td Vaccine due01/10/23Unknown Frequency Colorectal Cancer Screening due01/10/23Unknown Frequency Hepatitis C Screening due01/10/23One-time only Lipid Screening due01/10/23Unknown Frequency Pneumococcal Vaccine Adults and Adolescents with Chronic Illness due01/10/23One-time only Due In Future Body Mass Index not due until01/10/24and every 1year Satisfied(in the past 1 year) Satisfied Body Mass Index on01/10/23.Satisfied by KERRIE Amos Paula Electronic Signature on File Electronically Reviewed/Signed by: Barbra Kohli Author Signature Dt/Tm:01/10/2023 08:58 AM Resident Department of Family Medicine Electronically Reviewed/Signed by: Renzo Luo MD Cosigner Signature Dt/Tm: 01/10/2023 09:03 AM Department of Family Medicine PMW Patient Care team information Care Team Personnel Name: DO Kohli Paige M Position: Resident Member Role: Primary Care Provider Address: Address: [address] [place] [address]
--- OUTSIDE RECORDS SUMMARY | 2023-07-08 23:09 | External Medical Summary | Summary of Care ---
Author Name Unknown Organization [facility] Address [address] [place] [address] Phone [phone] Care Team Providers Care Tooth Cutter Clutch Name Role Phone Unavailable Primary Care Provider Unavailabl e Reason for Visit * Reason Comments NEW PATIENT * Evaluate & Treat - Unlimited Visits (Within 10 days (routine)) - Pending Review Specialty Diagnoses / Procedures Referred By Contact Referred To Contact Cardiovascular Medicine / Cardiology Diagnoses ASCVD (arteriosclerotic cardiovascular disease) Personal history of transient ischemic attack Hyperlipidemia, unspecified Cardiomyopathy, unspecified (HCC) Andrea Ambrose MD [address] [address] Referral ID Status Reason Start Date Expiration Date Visits Requested Visits Authorized [id number] Pending Review Specialty Services Required 12/11/[phone] Encounter Details Date Type Department Care Team Description 02/13/2023 Office Visit Cardiology [facility] [address], [place] [phone] Harry Mendoza CRNP [address] [place] [address] HTN, goal below 130/80*; Chronic HFrEF (heart failure with reduced ejection fraction) ([facility]); Cerebrovascular disease, arteriosclerotic, post-stroke Allergies No known active allergiesdocumented as of this encounter (statuses as of 02/13/2023) Medications Medication Sig Dispensed Refills Start Date End Date Status Jardiance 10 MG Oral Tablet Take 1 Tablet by mouth in the morning. In the morning.. 0 Active Entresto 24-26 MG Oral Tablet Start: 01/12/23 12:40:00 EDT, 1 tab, PO, bid, Disp# 60 tab, Refills: 3, TAKE 1 TABLET BY MOUTH TWICE A DAY FOR 30 DAYS, Pharmacy: [facility]/pharmacy #[id number] 01/12/2023 05/12/2023 Active Furosemide 20 MG Oral Tablet (Lasix) Take 1 Tablet by mouth in the morning. In the morning.. 0 02/06/2023 Active Carvedilol 6.25 MG Oral Tablet (Coreg) TAKE 1 TABLET ORALLY TWICE A DAY MUST ADMINISTER WITH A MEAL/FOOD 0 02/04/2023 Active Atorvastatin Calcium 40 MG Oral Tablet (Lipitor) TAKE 1 TABLET BY MOUTH DAILY EVERY MORNING 0 Active Aspirin Low Dose 81 MG Oral Tablet Delayed Release Take 1 Tablet by mouth in the morning. In the morning.. 0 02/04/2023 Active Metoprolol Tartrate 100 MG Oral Tablet (Lopressor)Indic ations:Chronic HFrEF (heart failure with reduced ejection fraction) (HCC) One tablet in the evening prior to cardiac CT, and 1 tablet [address] appointment on the day of CT. 2 Tablet 0 12/01/2022 02/13/2023 Discontinued (Medication/ Dose Changed) documented as of this encounter (statuses as of 02/13/2023) Active Problems No known active problems documented as of this encounter (statuses as of 02/13/2023) Social History Tobacco Use Types Packs/Day Years Used Date Smoking Tobacco: Every Day Cigarettes 1 Smokeless Tobacco: Never Tobacco Cessation:Ready to Q uit: Not Asked; Counseling Given: Not Answered Alcohol Use Standard Drinks/Week Comments Not Currently 0 (1 standard drink = 0.6 oz pur e alcohol) occ Sex Assigned at Date Recorded Not on file documented as of this encounter Last Filed Vital Signs Vital Sign Reading Time Taken Comments Blood Pressure 120/76 02/13/2023 1:14 PM EDT Pulse 80 02/13/2023 1:14 PM EDT Temperature - - Respiratory Rate - - Oxygen Saturation 97% 02/13/2023 1:14 PM EDT Inhaled Oxygen Concentration - - Weight 83.2 kg (183 lb 8 oz) 02/13/2023 1:14 PM EDT Height 167.6 cm (5' 6") 02/13/2023 1:14 PM EDT Body Mass Index 29.62 02/13/2023 1:14 PM EDT documented in this encounter Patient Instructions * Patient Instructions* EMY Veliz - 02/13/2023 2:12 PM EDT CARDIAC CATH INSTRUCTIONS Cardiac catheterization was ordered for Jason Reyez. [...] patient voices an understanding of these instructions. documented in this encounter Progress Notes * EMY Veliz - 02/13/2023 1:10 PM EDT Images from the original note were not included. Cardiology Outpatient Clinic Note 02/13/2023 Jason Reyez is a 47 year old male in clinic today for evaluation of cardiac cath referral. He has no one accompanying him for today's visit. Patient reports that in June he presented to [facility] because he noticed changesin his speech and balance. He was diagnosed with CVA. At that admission, he had a CTA which showed moderate to severe multivessel coronary disease. Also, he had an echocardiogram which showed severely reduction in LVEF: <15%. He was started on GDMT [...] occ Drug use: Never Review of Systems Review of Systems Constitutional: Negative. HENT: Negative. Eyes: Negative. Cardiovascular: Negative. Respiratory: Negative. Endocrine: Negative. Hematologic/Lymphatic: Negative. Skin: Negative. Musculoskeletal: Negative. Gastrointestinal: Negative. Genitourinary: Negative. Neurological: Negative. Psychiatric/Behavioral: Negative. Allergic/Immunologic: Negative. Labwork Physical Exam: Today's vital signs: BP 120/76 | Pulse [...] performance of separately billed services. EMY Veliz Department of Cardiology [place] documented in this encounter Plan of Treatment Upcoming Encounters Date Type Specialty Care Team Description 02/21/2023 Hospital Encounter Cardiac Care Provider Roel Barton, DO [address] [place] [address] 02/21/2023 Surgery Cardiac Care Provider Roel Barton, DO [address] [facility] [place] [address] CORONARY ANGIOGRAPHY W/LEFT HEART CATH 02/21/2023 Office Visit Cardiology Nadir, Cardiac Recovery Ian [address] [place], [place] [phone] 05/16/2023 Office Visit Cardiology Harry Mendoza CRNP [address] [place], [place] [phone] Scheduled Procedures Name Priority Associated Diagnoses Date/Ti me CORONARY ANGIOGRAPHY W/LEFT HEART CATH Abnormal cardiac CT angiography 02/21/2023 9:00 AM EDT Health Maintenance Due Date Last [...] Vaccine (FLU shot) (#1) 2022 Diabetes Screening 11/28/2025 11/28/2022 GARDASIL-HPV IMMUNIZATION SERIES Aged Out No longer eligible based on patient's age to complete this topic MENINGOCOCCAL (MENACTRA/MENVEO) Aged Out No longer eligible based on patient's age to complete this topic documented as of this encounter Medical Devices Not on filedocumented as of this encounter Visit Diagnoses Diagnosis HTN, goal below 130/80- Primary Unspecified essential hypertension Chronic HFrEF (heart failure with reduced ejection fraction) (HCC) Cerebrovascular disease, arteriosclerotic, post-stroke Cerebral atherosclerosis Abnormal cardiac CT angiography Nonspecific (abnormal) findings on radiological and other examination of other intrathoracic organs documented in this encounter
[2023-07-08 23:44] LABS: Basophils # (auto) 0.07 K/uL (0.00-0.20); Basophils % (auto) 0.4 %; Eosinophils # (auto) 0.39 K/uL (0.00-0.50); Eosinophils % (auto) 2.5 %; Hematocrit (blood only) 45.9 % (42.0-52.0); Hemoglobin 17.1 g/dl (14.0-18.0); Immature Granulocytes # (auto) 0.09 K/uL (0.01-0.20); Immature Granulocytes % (auto) 0.6 %; Lymphocytes % (auto) 15.2 %; Mean Corpuscular Hemoglobin 33.3 pg (25.0-34.0); Mean Corpuscular Hgb Conc 37.3 g/dL (32.0-36.0); Mean Corpuscular Volume 89.3 fL (80.0-100.0); Mean Platelet Volume 10.5 fL (9.4-12.4); Monocytes # (auto) 1.06 K/uL (0.11-0.59); Monocytes % (auto) 6.7 %; Neutrophils # (auto) 11.81 K/uL (1.40-6.50); Neutrophils % (auto) 74.6 %; Platelet Count 227 K/uL (130-400); RDW Coefficient of Variation 13.9 % (11.5-14.5); RDW Standard Deviation 45.7 fL (36.4-46.3); Red Blood Count 5.14 M/uL (4.70-6.10); White Blood Count 15.82 K/ul (4.8-10.8)
[2023-07-08] MEDS: POTASSIUM CHLORIDE CRTAB 20 MEQ TABCR PO STA (23:55)
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
[2023-07-08] MEDS: LACTATED RINGER'S 1,000 ML IV ONE (23:56)
[2023-07-09 00:27] LABS: BUN Creatinine Ratio 15.3 (10-20); Calcium 8.9 mg/dl (8.6-10.3); Creatinine Clr Calc Pharmacy 100.1 ml/min; Est GFR (African American) 106.7 ml/min; Est GFR (Non-African American) 92.1 ml/min; Magnesium 1.9 mg/dl (1.7-2.4)
[2023-07-09] MEDS: POTASSIUM CHLORIDE CRTAB 20 MEQ TABCR PO STA ×2 (01:09→05:23)
[2023-07-09] MEDS: POTASSIUM CHLORIDE / WTR 10 MEQ/100 ML PLCT IV SCH ×3 (01:13→12:14)
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
[2023-07-09] MEDS: VALSARTAN/SACUBITRIL 26/24MG TAB PO STA (01:22)
[2023-07-09] MEDS: carvediloL 6.25 MG TAB PO STA (01:22)
[2023-07-09] MEDS ORDERED: ONDANSETRON INJ 2 MG/ML 2 ML VIAL IV PRN (02:18)
[2023-07-09] MEDS ORDERED: ACETAMINOPHEN 325 MG TAB PO PRN (02:18)
[2023-07-09 02:59] LABS: Albumin Level 4.7 gm/dl (3.4-5.0); Bilirubin Direct 0.1 mg/dl (0-0.2); Bilirubin,Total 0.7 mg/dl (0.2-1.0); Total Protein 7.1 gm/dl (6.0-8.3)
[2023-07-09 04:26] LABS: Basophils # (auto) 0.07 K/uL (0.00-0.20); Basophils % (auto) 0.6 %; Eosinophils # (auto) 0.33 K/uL (0.00-0.50); Eosinophils % (auto) 2.7 %; Hematocrit (blood only) 42.6 % (42.0-52.0); Hemoglobin 15.6 g/dl (14.0-18.0); Immature Granulocytes # (auto) 0.03 K/uL (0.01-0.20); Immature Granulocytes % (auto) 0.2 %; Lymphocytes # (auto) 1.75 K/uL (1.20-3.40); Lymphocytes % (auto) 14.3 %; Mean Corpuscular Hemoglobin 32.8 pg (25.0-34.0); Mean Corpuscular Hgb Conc 36.6 g/dL (32.0-36.0); Mean Corpuscular Volume 89.5 fL (80.0-100.0); Mean Platelet Volume 10.8 fL (9.4-12.4); Monocytes # (auto) 0.74 K/uL (0.11-0.59); Neutrophils # (auto) 9.36 K/uL (1.40-6.50); Neutrophils % (auto) 76.2 %; Platelet Count 185 K/uL (130-400); RDW Coefficient of Variation 13.8 % (11.5-14.5); RDW Standard Deviation 45.1 fL (36.4-46.3); Red Blood Count 4.76 M/uL (4.70-6.10); White Blood Count 12.28 K/ul (4.8-10.8)
[2023-07-09 04:50] LABS: BUN Creatinine Ratio 17.9 (10-20); Calcium 8.2 mg/dl (8.6-10.3); Creatinine Clr Calc Pharmacy 121.3 ml/min; Est GFR (African American) 125.5 ml/min; Est GFR (Non-African American) 108.3 ml/min; Magnesium 1.8 mg/dl (1.7-2.4); Phosphorus 2.9 mg/dl (2.5-4.9); Potassium 2.4 mmol/L (3.5-5.1)
--- NOTE | 2023-07-09 07:17 | Hospitalist Progress Note ---
Date of Service July 09, 2023 Assessment & Plan (1) Hypokalemic periodic paralysis: Plan: -K+ levels 2.0 mmol/L on admission, last reading 3.6 mmol/L -Mg 1.8 mg/dL, within normal limits -receiving last KCl bag this AM -trend labs -appreciate recs from nephrology, start on acetazolamide 250 bid as prophylaxis for periodic paralysis episodes -f/u with pcp after discharge, prescribe outpatient K+ supplement (2) HFrEF (heart failure with reduced ejection fraction): Plan: -hx of HFrEF, ejection fraction < 15% -given hx hypokalemic periodic paralysis, start on spironolactone 100 mg (3) Hypertension: Plan: -135/94 this AM -continue valsartan/sucubitril 26/24 mg Plan Diet: low calorie Code status: full code Disposition: ICU DVT prophylaxis: heparin Admission and Anticipated Discharge Date Admission Date: July 09, 2023 Supervising Physician Co-Signing Physician Notes I personally examined the patient and verified all martinez points of history and exam, discussed case, and agree with decision making with Dr Polanco and Venus Vieyra MS2 Feeling better and wants to go home. Notes that attacks happen a lot less than they used to. Last one was about 3 years ago. Does not want any medicationsNotes that he knows what he is doing with this diagnosis and prefers to manage it himself and with lifestyle. As it relates to his cardiomyopathyhe does still take an aspirin. Has an appointment with cardiology later this week and is willing to follow-up there. 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 Vitals noted, in general he is awake and alert pleasant no distress. HEENT normocephalic atraumatic mucous membranes moist. Breathing unlabored no accessory muscle use good effort. Skin shows no rashes no pallor or icterus. Neuro without focal deficits. Hypokalemic periodic paralysisdiscussed nephrology preferred management plan, patient notes that he would much prefer to do things the way he has been doing them. Expresses a reasonable understanding of risk and benefit and a strong preference to manage this with lifestyle alone. Also does not want to stay in the hospital for further monitoring, is willing to have lab work checked at his cardiology follow-up later this week. Vascular disease including coronary artery disease with an ischemic cardiomyopathy and cerebrovascular disease with a recent strokeis willing to take an aspirin, discussed smoke cessationshe is still precontemplative and braces against being pushed too hard and smoke cessation discussions. Has a surprising lack of symptoms despite his cardiomyopathy and EF. Would obviously prefer he be on goal-directed medical therapy, but he expresses strong preferences. Is willing to follow-up with cardiology later this week as previously scheduled. Would much prefer patient stay for ongoing medical management and monitoring, but he is absolutely set/adamant about going home today. Subjective CC: hypokalemic periodic paralysis HPI: Jason is a 47 year old male with history of CVA and CAD presenting with numbness, tingling, and weakness of the upper and lower extremities bilaterally. He is the third generation of his family to have hypokalemic periodic paralysis and has had multiple episodes before. He believes that this episode may be due to him having walked a lot, exerting himself, and not taking potassium supplements in a long time. When he noticed that he was having an episode he went to the ED. Blood potassium was 2.0 mmol/L in the ED. He received oral potassium and began IV fluid resuscitation. This AM he feels better but still weak. He was able to go to the urinal to void but needed assistance adjusting himself in his bed. He mentions that he has not seen a PCP in a long time and has not had a prescription for supplemental potassium in years. He also has an extensive cardiology history including hypertension and HFrEF (EF < 15%). Last potassium blood level was 3.6 mmol/L. He reports no other concerns. Review of Systems Review of Systems: All negative except as noted above.. Physical Exam Physical Exam: Vitals: BP: 135/94 HR: 113 RR: 20 T: 36.9 C O2: 96% on room air General: A&O x 3, well-developed and well-nourished, NAD Respiratory: Clear to auscultation bilaterally. No W/R/R. Cardiac: RRR, no M/R/G. No lower extremity edema Neurologic: Patellar and achilles DTR 1+, biceps and brachioradialis DTR 2+ Results & Data Results & Data Laboratory Results 07/09/23 07/09/23 07/09/23 08:40 04:00 03:50 WBC 12.28 H RBC 4.76 Hgb 15.6 Hct 42.6 MCV 89.5 MCH 32.8 MCHC 36.6 H RDW Std Deviation 45.1 RDW Coeff of [place] 13.8 Plt Count 185 MPV 10.8 Immature Gran % (Auto) 0.2 Neut % (Auto) 76.2 Lymph % (Auto) 14.3 [place] % (Auto) 6.0 Eos % (Auto) 2.7 Baso % (Auto) 0.6 Neut # (Auto) 9.36 H Lymph # (Auto) 1.75 [place] # (Auto) 0.74 H Eos # (Auto) 0.33 Baso # (Auto) 0.07 Immature Gran # (Auto) 0.03 Sodium 140 Potassium 2.4 L* Chloride 106 Carbon Dioxide 24 Anion Gap 10 BUN 14 Creatinine 0.78 Est Cr Clr Drug Dosing 121.3 Est GFR ( Amer) 125.5 Est GFR (Non-Af Amer) 108.3 BUN/Creatinine Ratio 17.9 Glucose 109 H Calcium 8.2 L Phosphorus 2.9 Magnesium 1.8 Total Bilirubin Direct Bilirubin AST ALT Alkaline Phosphatase Total Protein Albumin 4.0 Urine Color Yellow Urine Appearance Clear Urine pH 6.0 Ur Specific [place] 1.025 Urine Protein Negative Urine Glucose (UA) 3+ H Urine Ketones Negative Urine Blood Negative Urine Nitrite Negative Urine Bilirubin Negative Urine Urobilinogen Negative Ur Leukocyte Esterase Negative Nasal Screen MRSA (PCR) Negative 07/08/23 23:21 WBC 15.82 H RBC 5.14 Hgb 17.1 Hct 45.9 MCV 89.3 MCH 33.3 MCHC 37.3 H RDW Std Deviation 45.7 RDW Coeff of [place] 13.9 Plt Count 227 MPV 10.5 Immature Gran % (Auto) 0.6 Neut % (Auto) 74.6 Lymph % (Auto) 15.2 [place] % (Auto) 6.7 Eos % (Auto) 2.5 Baso % (Auto) 0.4 Neut # (Auto) 11.81 H Lymph # (Auto) 2.40 Allen # (Auto) 1.06 H Eos # (Auto) 0.39 Baso # (Auto) 0.07 Immature Gran # (Auto) 0.09 Sodium 139 Potassium 2.0 L* Chloride 105 Carbon Dioxide 22 Anion Gap 12 H BUN 15 Creatinine 0.98 Est Cr Clr Drug Dosing 100.1 Est GFR ( Amer) 106.7 Est GFR (Non-Af Amer) 92.1 BUN/Creatinine Ratio 15.3 Glucose 114 H Calcium 8.9 Phosphorus Magnesium 1.9 Total Bilirubin 0.7 Direct Bilirubin 0.1 AST 33 ALT 26 Alkaline Phosphatase 91 Total Protein 7.1 Albumin 4.7 Urine Color Urine Appearance Urine pH Ur Specific [place] Urine Protein Urine Glucose (UA) Urine Ketones Urine Blood Urine Nitrite Urine Bilirubin Urine Urobilinogen Ur Leukocyte Esterase Nasal Screen MRSA (PCR) Resident Activity Tracking Resident Involvement: Resident Care Provided Care Provided: Adult Hospital Medicine
[2023-07-09] MEDS: CLOPIDOGREL BISULFATE 75 MG TAB PO SCH (08:15)
[2023-07-09] MEDS: ATORVASTATIN 40 MG TAB PO SCH (08:15)
[2023-07-09] MEDS: METOPROLOL SUCC 50MG EXT REL TAB PO SCH (08:15)
[2023-07-09] MEDS: carvediloL 6.25 MG TAB PO SCH (08:15)
[2023-07-09] MEDS: ASPIRIN 81 MG ECTAB PO SCH (08:15)
[2023-07-09] MEDS: VALSARTAN/SACUBITRIL 26/24MG TAB PO SCH (08:16)
[2023-07-09] MEDS: HEPARIN SOD 5,000 UNIT/0.5 ML VIAL SQ SCH (08:16)
[2023-07-09 09:04] LABS: Appearance Urine Clear (Clear); Bilirubin Urine Negative (Negative); Blood Urine Negative (Negative); Color Urine Yellow; Glucose Urine UA 3+ (Negative); Ketones Urine Negative (Negative); Leukocyte Esterase Urine Negative (Negative); Nitrite Urine Negative (Negative); Protein Urine Negative (Negative); Specific Gravity Urine 1.025 (1.000-1.030); Urobilinogen Urine Negative (Negative)
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
[2023-07-09 10:24] LABS: Albumin Level 3.8 gm/dl (3.4-5.0); BUN Creatinine Ratio 18.2 (10-20); Creatinine Clr Calc Pharmacy 122.9 ml/min; Est GFR (African American) 126.1 ml/min; Est GFR (Non-African American) 108.8 ml/min; Phosphorus 2.8 mg/dl (2.5-4.9); Potassium 3.6 mmol/L (3.5-5.1)
[2023-07-09 12:10] LABS: BUN Creatinine Ratio 17.7 (10-20); Calcium 8.2 mg/dl (8.6-10.3); Creatinine Clr Calc Pharmacy 119.8 ml/min; Est GFR (African American) 124.8 ml/min; Est GFR (Non-African American) 107.7 ml/min; Phosphorus 2.9 mg/dl (2.5-4.9); Potassium 3.6 mmol/L (3.5-5.1)
[2023-07-09] MEDS: acetaZOLAMIDE 250 MG TAB PO ONE (15:24)
[2023-07-09 16:19] LABS: Albumin Level 3.9 gm/dl (3.4-5.0); BUN Creatinine Ratio 15.5 (10-20); Calcium 8.2 mg/dl (8.6-10.3); Creatinine Clr Calc Pharmacy 97.6 ml/min; Est GFR (African American) 108.1 ml/min; Est GFR (Non-African American) 93.2 ml/min; Phosphorus 2.5 mg/dl (2.5-4.9); Potassium 4.5 mmol/L (3.5-5.1)
--- NOTE | 2023-07-09 16:45 | Discharge Summary ---
Date of Service July 09, 2023 Admission HPI Per Admitting Provider The patient is a 47-year-old male with a past medical history including CAD status post cardiac catheterization on 02/22/2023, undergoing PCI with 2 overlapping ANGELITA in the mid LAD. Past medical history also includes CVA, atherogenic dyslipidemia, cardiomyopathy with ejection fraction < 15%, hypertension, hypokalemic periodic paralysis, alcohol intoxication, and HFrEF. The patient presents to the emergency department with symptoms onset relatively abruptly this morning, and similar to previous episodes of hypokalemic periodic paralysis. Significant laboratories: WBC 15.82, hemoglobin 17.1, hematocrit 45.9, potassium 2.0 Admission Exam Per Admitting Provider The patient is awake, alert and oriented 3, well developed and well nourished, normocephalic and atraumatic, lying in bed and in no acute distress. HEENT--PERRL, EOMI, mucous membranes and oropharynx normal Neck--supple. No JVD. No bruits. Thyroid normal, trachea midline, no adenopathy. Heart--normal S1 and S2. No murmurs, rubs or gallops. Lungs--clear bilaterally, no respiratory distress, no accessory muscle use. Abdomen--normal bowel sounds and soft. Nontender. Nondistended, no hernias or masses, no organomegaly. Extremities--No edema. Dermatologic--normal skin turgor, normal color, no abnormal lymph nodes, no rash. Neurologic--cranial nerves II through XII grossly intact. Rheumatologic--normal range of motion. Psychiatric--normal affect. Principal Diagnosis hypokalemic periodic paralysis Discharge Exam Constitutional: well appearing, no acute distress HEENT: normocephalic, no conjunctival injection CV: regular rhythm, regular rate, no murmur, no LE edema Respiratory: Clear to auscultation bilaterally. No rhonchi, wheezes, or crackles. No increased work of breathing MSK: no gross deformities noted Skin: warm, dry, no rashes Neuro: alert, oriented, no FND noted Discharge Data Allergies Allergy/AdvReac Type Severity Reaction Status Date / Time No Known Allergies Allergy Mild Verified 07/09/23 00:32 Consultations 07/09/23 01:09 ED Decision to Admit Stat 07/09/23 02:18 Consult Nephrology Routine Hospital Course (1) Hypokalemic periodic paralysis: Pt is a 47 yo male with PMH of HFrEF and hypokalemic periodic paralysis presenting d/t hypokalemia and subsequent weakness. Hypokalemic periodic paralysis - K 2.0 on admission; Mg 1.8 WNL - after IV and PO supplementation, K prior to discharge 4.5 with improvement in patient's functional status - nephrology consulted; recommended acetazolamide 250 BID as ppx for periodic paralysis episode, however, pt declining any additional medications as he feels that he can control his episodes fairly well by avoiding triggers - recommended f/u with PCP within the next week and lab work later this week to ensure adequate K levels HFrEF - echo this admission showed EF 25-30% w/ global hypokinesis - with hx of hypokalemia as well, would consider starting spironolactone 100 mg daily as outpatient - otherwise, continue home medications; no changes made during this admission - continue following with cardiology Diet: heart healthy Code: full code Disposition: home w/ close outpatient f/u VTE ppx: heparin (2) HFrEF (heart failure with reduced ejection fraction): (3) Hypertension: Total Time Total Time Spent Total Time Spent (In Minutes): <30 Discharge Plan Discharge Items Patient Disposition: Home - Self-Care Reason For Visit: HYPOKALEMIA Discharge Diagnosis: hypokalemic periodic paralysis Activity: Per Instructions section Non-emergency contact: Primary Care Provider Call non-emergency contact if: you have any medication questions and your symptoms worsen Follow-up/Referrals: Andrea Ambrose MD, PhD [Physician] - () Barbra Kohli DO [Primary Care Provider] - Diet: Heart Healthy Ambulatory Orders: Basic Metabolic Panel (Routine) Timeframe: 3 Days Location: Determined by Patient Ordered By: Sophia Alvarenga Attending Provider Instructions: You were admitted to the hospital for paralysis/weakness related to low potassium. You were treated with IV and oral potassium. Upon discharge, your functional status improved and your potassium was within normal limits. Possible medication changes were discussed (including addition of acetazolamide) which were deferred. You should have lab work done this week to recheck your potassium levels. A discharge summary will be sent to your primary care physician to ensure continuity of care. Please bring this discharge summary with you to your next office appointment so that your provider can review it at that time. Medications: Your medication list has been reviewed and reconciled upon discharge to ensure accuracy and continuity of care. An updated list of all your medications is included with your hospital discharge paperwork. Please review this list closely and make note of any changes to your medications. - No changes to your home medications. Follow up appointments: - Make a follow up appointment with your PCP within the next week. It is very important that you follow up with them shortly after discharge from the hospital. - Keep all of your follow up appointments as already scheduled. You have an appointment with Dr. Ambrose on 07/13/2023 at 3:30 PM. If you cannot make an appointment, notify your provider. CONTACT YOUR PRIMARY CARE PROVIDER if you experience any of the following: - Difficulty following your treatment plan - Difficulty taking any of your medications CALL 911 OR GO TO THE EMERGENCY DEPARTMENT if you experience any of the following: - Sudden, severe abdominal pain or nausea/vomiting - Severe chest pain or chest pain that radiates to your jaw or arm - Sudden, severe shortness of breath or difficulty breathing Pending Studies at Discharge: No Stand-Alone Forms: [facility], Smoking Cessation Medications and DC Order Prescriptions: New potassium chloride 40 mEq/15 mL liquid 20 meq PO DAILY PRN (Reason: hypokalemia) Qty: 473 0RF Continued carvedilol 6.25 mg tablet 6.25 mg PO BID Qty: 180 3RF Hold Instructions: for CT scan 5 days before. Rx Instructions: must administer with a meal/food metoprolol succinate 100 mg tablet extended release 24 hr 100 mg PO DAILY Qty: 5 0RF Rx Instructions: Take in place of carvedilol for 5 days before and including day of CT scan. furosemide 20 mg tablet 20 mg PO QAM 90 Days Qty: 90 3RF Entresto 24-26 mg Tablet 1 tab PO BID 30 Days Qty: 60 1RF Hold Instructions: for [address] aspirin 81 mg Tablet,Delayed Release (Dr/Ec) 81 mg PO QAM 30 Days Qty: 30 1RF Jardiance 10 mg Tablet 10 mg PO DAILY 30 Days Qty: 30 1RF clopidogrel 75 mg tablet 75 mg PO QAM atorvastatin 80 mg tablet 80 mg PO DAILY Discharge Orders: Discharge Order (Routine); Ordered 07/09/23 Ordered By: Sophia Polanco Admission Data Admit Date/Time: 07/09/23 01:18 Attending Provider: Darryl Patterson Admit Provider: Roni Mon Primary Care Provider: Barbra Kohli Other Providers: Roni Mon; Lee Zaidi Other Interventions: Discharge Summary Assessment (RN) Last Done: 07/09/23 17:06 Supervising Physician Co-Signing Physician Notes I personally examined the patient and verified all martinez points of history and exam, discussed case, and agree with decision making with Dr Polanco Feeling better and wants to go home. Notes that attacks happen a lot less than they used to. Last one was about 3 years ago. Does not want any medicationsNotes that he knows what he is doing with this diagnosis and prefers to manage it himself and with lifestyle. As it relates to his cardiomyopathyhe does still take an aspirin. Has an appointment with cardiology later this week and is willing to follow-up there. 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 Vitals noted, in general he is awake and alert pleasant no distress. HEENT normocephalic atraumatic mucous membranes moist. Breathing unlabored no accessory muscle use good effort. Skin shows no rashes no pallor or icterus. Neuro without focal deficits. Hypokalemic periodic paralysisdiscussed nephrology preferred management plan, patient notes that he would much prefer to do things the way he has been doing them. Expresses a reasonable understanding of risk and benefit and a strong preference to manage this with lifestyle alone. Also does not want to stay in the hospital for further monitoring, is willing to have lab work checked at his cardiology follow-up later this week. Vascular disease including coronary artery disease with an ischemic cardiomyopathy and cerebrovascular disease with a recent strokeis willing to take an aspirin, discussed smoke cessationshe is still precontemplative and braces against being pushed too hard and smoke cessation discussions. Has a surprising lack of symptoms despite his cardiomyopathy and EF. Would obviously prefer he be on goal-directed medical therapy, but he expresses strong preferences. Is willing to follow-up with cardiology later this week as previously scheduled. Would much prefer patient stay for ongoing medical management and monitoring, but he is absolutely set/adamant about going home today. Resident Activity Tracking Resident Involvement: Resident Care Provided Care Provided: Adult [facility]
[2023-07-09] MEDS ORDERED: acetaZOLAMIDE 250 MG TAB PO SCH (17:00)
--- NOTE | 2023-07-09 17:39 | Billing Data ---
Date of Service July 09, 2023 Coding Level of Care Code 09082 IN/OBS DISCH 30 MIN/LESS
--- NOTE | 2023-07-09 17:55 | XCELERA ---
[id number]
[2023-07-10] MEDS ORDERED: SPIRONOLACTONE 100 MG TAB PO SCH (09:00)
== END 2023-07-09 17:30 | disposition home or self-care (01) ==
LOC: ED 23:04 → INTOOBSV 07-09 01:18 → SUATTDRO 07-09 01:18 → 1E 07-09 01:18